=== PATIENT | female | born 1980 | race Caucasian/White ===

== ENCOUNTER → 2019-11-11 | Outpatient (CLI) | payer OTHER, SELFPAY ==
[2019-11-14 01:13] LABS: HPV Reflexed? NOT INDICATED
== END | disposition home or self-care (01) ==
LOC: LABSPEC 11-12 09:14
PROVIDERS: Visit Provider Obstetrics & Gynecology
DX: Z12.4 Encounter for screening for malignant neoplasm of cervix (principal)
CPT/HCPCS: 88175; G0145

== ENCOUNTER → 2022-10-16 | Outpatient (CLI) | payer OTHER, SELFPAY ==
[2022-10-16 12:06] LABS: Absolute Lymphocyte Count 1.38 X10^3/uL (0.83-4.51); Absolute Neutrophil Count 8.1 X10^3/uL (2.0-7.7); Basophil# 0.06 X10^3/uL; Basophil% 0.6 % (0-1); Eosinophil# 0.08 X10^3/uL; Eosinophils% 0.8 % (0-5); Hematocrit 43.6 % (37-47); Hemoglobin 14.7 g/dL (12.0-15.0); Lymphocyte # 1.38 X10^3/ul (0.83-4.51); Lymphocyte % 13.4 % (19-41); Mean Corp Hgb Conc 33.7 g/dL (32-36); Mean Corpuscular Hgb 32.1 pg (27.0-32.0); Mean Corpuscular Volume 95.2 fL (81-99); Mean Platelet Vol. 10.7 fl (6.2-12.0); Monocyte# 0.66 X10^3/uL; Monocyte% 6.4 % (0-10); NRBC Flagged by Analyzer 0 % (0-5); Neutrophil # 8.07 X10^3/uL (2.7-7.7); Neutrophil % 78.1 % (47-70); Platelet Count 362 K/mm3 (150-450); RBC Distribution Width SD 41.7 fl (35.1-43.9); Red Blood Count 4.58 M/mm3 (4.2-5.4); White Blood Count 10.3 K/mm3 (4.4-11.0)
[2022-10-16 12:25] LABS: Vitamin B12 640 pg/mL (211-911); Vitamin D,25 Hydroxy 24.5 ng/mL
[2022-10-16 12:42] LABS: AST(SGOT) 204 U/L (15-37); Alanine Aminotransfer ALT/SGPT 156 U/L (13-56); Albumin, Serum 4.1 g/dL (3.2-5.0); Alkaline Phosphatase 70 U/L (45-117); Anion Gap 10 (5-15); BUN 6 mg/dL (7-18); Calcium,Total 9.6 mg/dL (8.5-10.1); Chloride 101 mmol/L (98-107); Cholesterol 167 mg/dL (200); Creatinine, Serum 0.67 mg/dL (0.55-1.02); EST Glomerular Filtration Rate 104 mL/min (>60); Est Glom Filt Rate - Afr Amer 125 mL/min (>60); Globulin 4.1 g/dL (2.2-4.2); Glucose 103 mg/dL (74-106); High Density Lipoprotein 94 mg/dL; Potassium 3.3 mmol/L (3.5-5.1); Protein, Total 8.2 g/dL (6.4-8.2); Sodium Level 137 mmol/L (136-145); Thyroid Stim Hormone (TSH) 0.75 uIU/mL (0.358-3.74); Triglycerides 69 mg/dL; Very Low Density Lipoprotein 14 mg/dL (5-40)
== END | disposition home or self-care (01) ==
LOC: BIMLAB 10:43
PROVIDERS: PCP Internal Medicine; Visit Provider Internal Medicine
DX: F31.9 Bipolar disorder, unspecified (principal); F41.9 Anxiety disorder, unspecified; F10.10 Alcohol abuse, uncomplicated; Z86.39 Personal history of other endocrine, nutritional and metabolic disease
CPT/HCPCS: 36415; 80053; 80061; 82306; 82607; 84443; 85025

== ENCOUNTER → 2022-10-28 | Outpatient (CLI) | payer OTHER, SELFPAY ==
--- NOTE | 2022-10-28 10:22 | US_ITS ---
STUDY: ABDOMINAL ULTRASOUND - RIGHT UPPER QUADRANT REASON FOR VISIT: Female, 41 years old abnormal LFTs TECHNIQUE: Ultrasound evaluation of the right upper quadrant was performed with real-time and static isabel-scale imaging. TECHNICAL QUALITY: Adequate. COMPARISON: None. FINDINGS: Liver: The liver measures 14.3 cm. There is increased echogenicity consistent with fatty infiltration. The bile ducts are within normal limits. There is hepatic color flow. The direction of portal flow is hepatopetal. There is no demonstrated mass lesion. Gallbladder: Normal distended gallbladder. The gallbladder wall measures 1.9 mm. There is a negative sonographic Hernandez''s sign. There is no pericholecystic fluid. There are multiple echogenic structures within the gallbladder, consistent with multiple gallstones. Common Bile Duct (C.B.D.): The common bile duct measures 3.1 mm. Pancreas: Normal size of the head, body and tail of the pancreas. There is normal echogenicity of the pancreas. There is no demonstrated pancreatic mass or cyst. Right Kidney: Normal size of the right kidney. The right kidney measures 10.1 x 5.8 x 4.3 cm. Normal renal cortex. The right cortex measures 1.5 cm. There is no demonstrated renal mass or cyst. There is no right hydronephrosis. US/Liver IMPRESSION: Fatty liver, no discrete lesion Cholelithiasis, no sonographic evidence of acute cholecystitis Electronically Signed: Pérez Thacker MD at 10:54 EST ,
== END | disposition home or self-care (01) ==
PROVIDERS: PCP Internal Medicine; Referring Provider Internal Medicine; Visit Provider Internal Medicine
DX: F10.10 Alcohol abuse, uncomplicated (principal); R74.8 Abnormal levels of other serum enzymes
CPT/HCPCS: 76705

== ENCOUNTER → 2025-08-05 | Outpatient (CLI) | payer OTHER, SELFPAY ==
--- OUTSIDE RECORDS SUMMARY | 2025-08-05 16:07 | XMS RPT_ITS | CCD ---
Author Organization [facility] Care Team Providers Care Wildlife Enforcement Major Name Role Phone YOLANDA, GURINDER DEANDREAS Attending Unavailable YOLANDA, GURINDER DEHALADONNA Primary Care Unavailable YOLANDA, GURINDER DEHALADONNA Admitting Unavailable YOLANDA, GURINDER Consulting Unavailable PROVIDER, UNKNOWN Consulting Unavailable Cristi Escobar ([facility]) Primary Care Provider ERICA AL Primary Care Unavailable MARIMATILDA BAKER Attending Unavailable AL, ERICA L Primary Care Unavailable MARIMATILDA BAKER Attending Unavailable LUCY KATZ Attending Unavailable AL, ERICA L Primary Care Unavailable MARIMATILDA Attending Unavailable AL, ERICA L Primary Care Unavailable AL, ERICA L Primary Care Unavailable MARI, MATILDA Attending Unavailable AL, ERICA L Primary Care Unavailable MARIMATILDA Attending Unavailable AL, ERICA L Primary Care Unavailable MARIMATILDA Attending Unavailable AL, ERICA L Primary Care Unavailable MARIMATILDA Attending Unavailable AL, ERICA L Primary Care Unavailable MARIMATILDA Attending Unavailable AL, ERICA L Primary Care Unavailable MARIMATILDA Attending Unavailable AL, ERICA L Primary Care Unavailable MARIMATILDA BAKER Attending Unavailable MATILDA BARAKAT Attending Unavailable AL, ERICA L Primary Care Unavailable MARIMATILDA Attending Unavailable AL, ERICA L Primary Care Unavailable TRAVIS MORRISON Attending Unavaila ble AL, ERICA L Primary Care Unavailable AL, ERICA L Primary Care Unavailable MARI, MATILDA Attending Unavailable AL, ERICA L Primary Care Unavailable MARI, MATILDA Attending Unavailable AL, ERICA L Primary Care Unavailable MARI, MATILDA Attending Unavailable AL, ERICA L Primary Care Unavailable MARIMATILDA BAKER Attending Unavailable AL, ERICA L Primary Care Unavailable MARIMATILDA FABIAN Attending Unavailable AL, ERICA L Primary Care Unavailable MATILDA BARAKAT Attending Unavailable ERICA AL Primary Care Unavailable MATILDA BARAKAT Attending Unavailable ERICA AL Primary Care Unavailable MATILDA BARAKAT Attending Unavailable ERICA AL Primary Care Unavailable MARIMATILDA FABIAN Attending Unavailable ERICA AL Primary Care Unavailable LUCY KATZ Attending Unavailable ERICA AL Primary Care Unavailable MATILDA BARAKAT Attending Unavailable ERICA AL Primary Care Unavailable TRAVIS MORRISON Attending Unavaila ble ERICA AL Primary Care Unavailable ERICA AL Primary Care Unavailable MATILDA BARAKAT Attending Unavailable ERICA AL Primary Care Unavailable MATILDA BARAKAT Attending Unavailable ERICA AL Primary Care Unavailable MATILDA BARAKAT Attending Unavailable [place], Laura Primary Care Unavailable Xavier Chappell Attending Unavailable [place], Laura Primary Care Unavailable Xavier Chappell Attending Unavailable [place], Laura Primary Care Unavailable Xavier Chappell Attending Unavailable Saira, Laura Primary Care Unavailable Xavier Chappell Attending Unavailable ERICA AL Primary Care Unavailable DEDIE GREY Attending Unavailable ERICA AL Primary Care Unavailable CAYLA MAS Attending Unavailable ERICA AL Primary Care Unavailable Medications Completed/Discontinued Medications Medication Drug Class(es) Dates Sig (Normalized) Sig (Original) 24 hr buPROPion hydrochloride 150 mg extended release oral tablet (1 source) Aminoketone Start: 08-10-2023 take 1 tablet by mouth once daily buPROPion XL (WELLBUTRIN XL) 150 mg 24 hr tablet Take 300 mg by mouth once daily. 0 08/10/2023 Active Comment on above: Take 300 mg by mouth once daily. escitalopram 10 mg oral tablet (1 source) Serotonin Reuptake Inhibitor Start: 07-17-2023 take 1 tablet by mouth once daily escitalopram oxalate (LEXAPRO) 10 mg tablet Take 10 mg by mouth once daily. 0 07/17/2023 Active Comment on above: Take 10 mg by mouth once daily. Problems Active Problems Problem Classification Problem Date Documented Date Episodic/Chronic Alcohol-related disorders (1 source) Alcohol dependence, uncomplicated; Translations: [Moderate alcohol use disorder (HCC)] Onset: 10-17-2023 Chronic Attention-deficit, conduct, and disruptive behavior disorders (1 source) Attention-deficit hyperactivity disorder, unspecified type; Translations: [Attention-deficit hyperactivity disorder, unspecified type] Onset: 05-26-2025 Chronic Immunizations and screening for infectious disease (2 sources) Patient encounter status; Translations: [Encounter for screening for human papillomavirus (HPV)] 08-15-2023 Episodic Nonmalignant breast conditions (1 source) Breast finding ; Translations: [Dense breast tissue] 08-13-2023 Episodic Other upper respiratory infections (1 source) Chronic sinusitis, unspecified; Translations: [Rhinosinusitis] Onset: 06-20-2025 Chronic Unclassified (1 source) Chemical Dependency Onset: 11-20-2023 Past or Other Problems Problem Classification Problem Date Documented Da te Episodic/Chronic Other screening for suspected conditions (not mental disorders or infectious disease) (2 sources) Cancer cervix screening status; Translations: [Encounter for screening for malignant neoplasm of cervix] Onset: 10-17-2023 08-15-2023 Episodic Results Test Name Value Interpretation Reference Range Facility [facility] 06-20-2025 CNOV Office Visit ([facility]) -------- OREN TOBIN ([id number]) 1980 [facility] Date Time Provider Department 06/20/25 2:30 PM EDDIE GREY During your visit today, we recorded the following information about you: Temperature Pulse Respiration Blood pressure 98.1 degrees 110/minute 16/minute 110/64 Weight 56 kg Eddie Grey APRN.CNP 06/20/2025 2:45 PM Signed [facility] Subjective Oren Tobin is a 44 year old female. Patient presents with: Chest Congestion: dry cough x 10 days, increased x 2 days HPI The patient is a 44-year-old female presenting with sinus congestion, dry cough, and wheezing. Sinus Congestion, Cough, and Wheezing: - Sinus congestion with minimal pressure. - Dry cough and wheezing, particularly at night. - Denies feeling like it's pneumonia; attributes symptoms to allergies. - Previously had similar symptoms when owning a rabbit. - Typically uses prednisone and an inhaler for relief. - Tried Claritin without relief. - Denies history of COPD or asthma. - Denies any allergies. Review of Systems Ears/Nose/Mouth/Throat: (+) nasal congestion, (+) sinus pressure Respiratory: (+) dry cough, (+) wheezing Objective BP 110/64 Pulse 110 Temp 36.7 ?C (98.1 ?F) Resp 16 Wt 56 kg (123 lb 7.3 oz) LMP (LMP Unknown) SpO2 98% BMI 24.11 kg/m? Physical Exam Constitutional: Appearance: Normal appearance. Pulmonary: Effort: Pulmonary effort is normal. Neurological: Mental Status: She is alert. General: No acute distress. HEENT: Ears and throat normal. Resp: Lungs clear to auscultation bilaterally, respirations regular. { 1. Rhinosinusitis (J32.9) - Acute rhinosinusitis with significant postnasal drainage, dry cough, and mild wheezing; lungs clear on exam. - Start doxycycline BID for 7 days. - Start prednisone 40 mg daily for 5 days. - Start albuterol inhaler; patient expressed understanding of inhaler use. and Recording using [employer] software for draft documentation of the visit was discussed with the patient/authorized veterans contact representative; all questions welcomed and answered. Patient/authorized veterans contact representative agreed to proceed History and Record Review External record(s) reviewed: no prior records. Disposition The patient was discharged. Procedures Allergies As of Date: 06/20/2025 (No Known Allergies) Date Reviewed: 06/20/2025 Reviewed by: Lizzy Miner MA - Fully Assessed Reason for Visit: Chest Congestion [236] Cmt: dry cough x 10 days, increased x 2 days Primary Visit Diagnosis:Rhinosinusitis [J32.9] Order(s):doxycycline hyclate (VIBRAMYCIN) 100 mg capsuleTake 1 capsule by mouth two times a day for 7 days.Disp: 14 capsuleRfl: 0 predniSONE (DELTASONE) 20 mg tabletTake 2 tablets by mouth once daily for 5 days.Disp: 10 tabletRfl: 0 albuterol HFA (PROVENTIL HFA, VENTOLIN HFA) 90 mcg/actuation inhalerInhale 2 puffs as instructed every 6 hours as needed for wheezing/shortness of breath.Disp: 1 eachRfl: 0 Prescriptions as of 06/20/2025 - atomoxetine (STRATTERA) 40 mg capsule Take 40 mg by mouth every morning. - doxycycline hyclate (VIBRAMYCIN) 100 mg capsule Take 1 capsule by mouth two times a day for 7 days. - predniSONE (DELTASONE) 20 mg tablet Take 2 tablets by mouth once daily for 5 days. - albuterol HFA (PROVENTIL HFA, VENTOLIN HFA) 90 mcg/actuation inhaler Inhale 2 puffs as instructed every 6 hours as needed for wheezing/shortness of breath. - metoprolol succinate ER (TOPROL XL) 50 mg 24 hr tablet Take 1 tablet by mouth once daily. - buPROPion XL (WELLBUTRIN XL) 300 mg 24 hr tablet 300 mg once daily. - escitalopram oxalate (LEXAPRO) 10 mg tablet 10 mg. Problem List As Of Date 06/20/2025 Noted Resolved Moderate alcohol use disorder (HCC) [F10.20] 10/17/2023 Generalized anxiety disorder [F41.1] 10/17/2023 Major depressive disorder, recurrent episode, m*10/17/2023 Uncomplicated alcohol dependence (HCC) [F10.20] 10/23/2023 Prescriptions ordered this encounter Disp Refills Start End DOXYCYCLINE HYCLATE 100 MG CAPSULE 14 c* 0 06/20/2025 06/27/2025 Route: PO Sig: Take 1 capsule by mouth two times a day for 7 days. PREDNISONE 20 MG TABLET 10 t* 0 06/20/2025 06/25/2025 Route: PO Sig: Take 2 tablets by mouth once daily for 5 days. ALBUTEROL SULFATE HFA 90 MCG/ACTUATI* 1 ea* 0 06/20/2025 Cmt: Generic or brand: dispense inhaler preferred by patient/insurance unless CHARMAINE flag is selected. Route: INH Sig: Inhale 2 puffs as instructed every 6 hours as needed for wheezing/shortness of breath. Encounter Status:Closed by EDDIE GREY on 06/20/25 [facility] MR/BMS.[place] 05-26-2025 MR/BMS. [address], [address] [place] [id number] OFFICE VISIT Date of Service: 05/26/25 MR#: [id number] Acct: [id number] Name: OREN TOBIN Rep #: [id number] : 1980 Provider: Dr. Xavier Reynoso se, DO Age/Sex: 44/F [place] [facility] [place] Status: Signed Intake Vital Signs 02/23/25 15:04 05/26/25 15:03 Height 5 ft 1 in 5 ft 1 in Weight: 117 lb 119 lb BMI 22.1 22.4 BP 128/90 H 132/89 H Blood Pressure Location Lt brachial Lt brachial Position Sitting Sitting Respiration 16 16 Pulse 101 H 122 H Pulse Source Monitor Monitor BP Intake Visit Reasons: 3 M FU Accompanied by: Self Allergies No Known Allergies Allergy (Verified 05/26/25 15:05) Medications ???Medication ???Instructions ???Recorded ???Confirmed ???Type atomoxetine 80 mg capsule 80 mg PO QAM #30 caps 05/26/2506/11 Rx PFSH Medical History ADHD HTN (hypertension) CHASIDY (generalized anxiety disorder) Depression Anxiety Hx of bipolar disorder History of non anemic vitamin B12 deficiency History of vitamin D deficiency History of neuropathy Hx of migraines Seasonal allergies Alcohol abuse Surgical History No significant past surgical history Family History Mother Anxiety Depression Hypertension Hyperlipidemia Liver disease Grandmother Anxiety Colon cancer Depression Father AA (alcohol abuse) Grandfather AA (alcohol abuse) Social History household members: family housing: house current occupational status: employed current occupation: [employer] FORMER sexually active: Yes Smoking Status: Former smoker alcohol intake: former details: [place] substance use type: does not use what type of physical activity do you participate in: walking and running frequency: 5-6 times per week seatbelt use: always do you feel safe at home: Yes HPI History of Present Illness History provided by: patient HPI: Oren Tobin is a 44 year old female who presents today for follow up evaluation. 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 Has been working at the [employer] part of the [employer]. Has been falling asleep around 3-4 pm if she sits down. Is able to sleep well at night without much difficulty. Son has been participating in [employer] which has been a positive. Has been taking the atomoxetine regularly, and does think that increased dose has been marginally better. Has reduced her drinking to maybe 3 on the weekends. Denies SI/HI or AVH. Mother in law has been living in a senior care. Coming up on 12 year anniversary with her significant other. Review of Systems Constitutional Denies: fever(s), chills or change in weight Eyes Denies: change in vision or blurry vision Ears, Nose, Mouth, Throat Denies: throat pain, neck pain or change in hearing Cardiovascular Denies: chest pain, palpitations or dyspnea Respiratory Denies: dyspnea, cough or wheezing Gastrointestinal Denies: abdominal pain, nausea, vomiting, diarrhea or constipation Genitourinary Denies: dysuria or urinary frequency Musculoskeletal Denies: back pain, neck pain, joint pain or muscle weakness Integumentary/Breast Denies: rash or new lesions Neurological Denies: headache(s), dizziness or confusion Endocrine Denies: excessive sweating Hematologic/Lymphatic Denies: easy bruising or easy bleeding Allergic/Immunologic Denies: wheezing Exam Mental Status Exam - Psych Appearance casually dressed Attitude engaged Activity/Motor Behavior MSE activity/motor behavior finding no adventitious movements Speech regular rate, regular volume and regular prosody Mood OK Affect full range Thought Process linear, logical and coherent Thought Content no delusions and no hallucinations Suicidal Ideation none Homicidal Ideation none Attention intact Concentration intact Sensorium/Orientation awake, alert and oriented x3 Memory/Cognition other (appropriate for stated age) Insight good Judgement good Assessment Plan Assessment Plan (1) CHASIDY (generalized anxiety disorder): Plan: - Fairly stable at this time (2) ADHD: Plan: - Will increase atomoxetine to 40 mg twice a day; does do largely well with medication however has an afternoon crash which does usually necessitate taking a nap ??? Advised of the risk benefits and possible side effects of medication including but not limited to high blood pressure, tachycardia, headache, reduced appetite (3) Alcohol abuse: Plan: - Still reducing use; generally only drinking on the weekend Medications: Changed From atomoxetin (more content not included)... Normal [facility] MR/BMS.BPon 02-23-2025 MR/BMS.BP [facility] [address], [address] [place] [address] OFFICE VISIT Date of Service: 02/23/25 MR#: [id number] Acct: [id number] Name: OREN TOBIN Rep #: [id number] : 1980 Provider: Dr. Xavier Reynoso se, DO Age/Sex: 44/F [place] [facility] [place] Status: Signed Intake Vital Signs 12/22/24 14:31 02/23/25 15:04 Height 5 ft 1 in 5 ft 1 in Weight: 123 lb 117 lb BMI 23.2 22.1 BP 144/89 H 128/90 H Blood Pressure Location Lt brachial Lt brachial Position Sitting Sitting Respiration 16 16 Pulse 116 H 101 H Pulse Source Monitor Monitor BP Intake Visit Reasons: 2 M FU Accompanied by: Self Allergies No Known Allergies Allergy (Verified 02/23/25 15:07) Medications ???Medication ???Instructions ???Recorded ???Confirmed ???Type atomoxetine 40 mg capsule 40 mg PO QAM #30 caps 02/23/2506/11 Rx PFSH Medical History ADHD HTN (hypertension) CHASIDY (generalized anxiety disorder) Depression Anxiety Hx of bipolar disorder History of non anemic vitamin B12 deficiency History of vitamin D deficiency History of neuropathy Hx of migraines Seasonal allergies Alcohol abuse Surgical History No significant past surgical history Family History Mother Anxiety Depression Hypertension Hyperlipidemia Liver disease Grandmother Anxiety Colon cancer Depression Father AA (alcohol abuse) Grandfather AA (alcohol abuse) Social History household members: family housing: house current occupational status: employed current occupation: [employer] FORMER sexually active: Yes Smoking Status: Former smoker alcohol intake: former details: [place] substance use type: does not use what type of physical activity do you participate in: walking and running frequency: 5-6 times per week seatbelt use: always do you feel safe at home: Yes HPI History of Present Illness History provided by: patient HPI: Oren Tobin is a 44 year old female who presents today for follow up evaluation. 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 Feels like she has noticed some benefit with atomoxetine. Initially noticed an afternoon crash with the medication but this has since resolved. Mother in law recently had an amputation and is now in the senior care permanently following this. She also has dementia. She has her name on patient's mortgage so worries about having to buy her off of their title. Despite this stress, has been handling "pretty well." Has been able to sleep at night. Has reduced how much she is drinking. Will drink 3-4 drinks 3 nights per week. Will be moving to high school for work which she is excited about in the future. Denies any SI HI or AVH. Review of Systems Constitutional Denies: fever(s), chills or change in weight Eyes Denies: change in vision or blurry vision Ears, Nose, Mouth, Throat Denies: throat pain, neck pain or change in hearing Cardiovascular Denies: chest pain, palpitations or dyspnea Respiratory Denies: dyspnea, cough or wheezing Gastrointestinal Denies: abdominal pain, nausea, vomiting, diarrhea or constipation Genitourinary Denies: dysuria or urinary frequency Musculoskeletal Denies: back pain, neck pain, joint pain or muscle weakness Integumentary/Breast Denies: rash or new lesions Neurological Denies: headache(s), dizziness or confusion Endocrine Denies: excessive sweating Hematologic/Lymphatic Denies: easy bruising or easy bleeding Allergic/Immunologic Denies: wheezing Exam Mental Status Exam - Psych Appearance casually dressed Attitude engaged Activity/Motor Behavior MSE activity/motor behavior finding no adventitious movements Speech regular rate, regular volume and regular prosody Mood OK Affect full range Thought Process linear, logical and coherent Thought Content no delusions and no hallucinations Suicidal Ideation none Homicidal Ideation none Attention intact Concentration intact Sensorium/Orientation awake, alert and oriented x3 Memory/Cognition other (appropriate for stated age) Insight good Judgement good Assessment Plan Assessment Plan (1) CHASIDY (generalized anxiety disorder): Plan: - Fairly stable at this time (2) ADHD: Plan: - Will increase atomoxetine to 40 mg every day; has noted significant benefit with the medication to this point however still has some residual symptoms ??? Advised of the risk benefits and possible side effects of medication including but not limited to high blood pressure, tachycardia, headache, reduced appetite (3) Alcohol abuse: Plan: - Has reduced her alc (more content not included)... Normal [facility] MR/BMS.BPon 12-22-2024 MR/BMS.BP [facility] [address], [address] [place] [address] OFFICE VISIT Date of Service: 12/22/24 MR#: [id number] Acct: [id number] Name: OREN TOBIN Rep #: [id number] : 1980 Provider: Dr. Xavier Reynoso se, DO Age/Sex: 44/F [place] [facility] [place] Status: Signed Intake Vital Signs 10/23/24 15:12 12/22/24 14:31 Height 5 ft 1 in 5 ft 1 in Weight: 130 lb 123 lb BMI 24.5 23.2 BP 153/88 H 144/89 H Blood Pressure Location Lt brachial Lt brachial Position Sitting Sitting Respiration 16 16 Pulse 116 H 116 H Pulse Source Monitor Monitor BP Intake Visit Reasons: 2 mfu Accompanied by: Self Allergies No Known Allergies Allergy (Verified 12/22/24 14:33) Medications ???Medication ???Instructions ???Recorded ???Confirmed ???Type atomoxetine 25 mg capsule 25 mg PO ONCE #30 caps 12/22/24 Rx PFSH Medical History ADHD HTN (hypertension) CHASIDY (generalized anxiety disorder) Depression Anxiety Hx of bipolar disorder History of non anemic vitamin B12 deficiency History of vitamin D deficiency History of neuropathy Hx of migraines Seasonal allergies Alcohol abuse Surgical History No significant past surgical history Family History Mother Anxiety Depression Hypertension Hyperlipidemia Liver disease Grandmother Anxiety Colon cancer Depression Father AA (alcohol abuse) Grandfather AA (alcohol abuse) Social History household members: family housing: house current occupational status: employed current occupation: [employer] FORMER sexually active: Yes Smoking Status: Former smoker alcohol intake: former details: [employer] substance use type: does not use what type of physical activity do you participate in: walking and running frequency: 5-6 times per week seatbelt use: always do you feel safe at home: Yes HPI History of Present Illness History provided by: patient HPI: Oren Tobin is a 44 year old female who presents today for follow up evaluation. Patient reports to having stopped all of her medication, including lexapro, when tapering off her bupropion. She is not quite sure why she did this. Has still been feeling "everywhere." Has been feeling more anxious in recent past. Vacillates between doing a lot like going out [employer] or shopping and other days has nearly no motivation. At work has been making some careless mistakes like walking past a patient's room and have to go back to do count. Easily is sidetracked at work, but not to point of getting in trouble. Feels scattered most of the time. Son has been telling her to "relax." Has been drinking 6-8 drinks at night every 3-4 nights per week. Has been sleeping fair. Sometimes feels that if she sleeps too much she needs more sleep and is worried about sleeping too much. Never took phentermine as she was prescribed. Has lost some more weight in recent past without any significant attempt. Scored a 61 on her Wender Justin Rating Scale. Daughter has a history of ADHD. Review of Systems Constitutional Reports: fatigue; Denies: fever(s), chills or change in weight Eyes Denies: change in vision or blurry vision Ears, Nose, Mouth, Throat Denies: throat pain, neck pain or change in hearing Cardiovascular Denies: chest pain, palpitations or dyspnea Respiratory Denies: dyspnea, cough or wheezing Gastrointestinal Denies: abdominal pain, nausea, vomiting, diarrhea or constipation Genitourinary Denies: dysuria or urinary frequency Musculoskeletal Denies: back pain, neck pain, joint pain or muscle weakness Integumentary/Breast Denies: rash or new lesions Neurological Denies: headache(s), dizziness or confusion Endocrine Reports: fatigue; Denies: excessive sweating Hematologic/Lymphatic Denies: easy bruising or easy bleeding Allergic/Immunologic Denies: wheezing Exam Mental Status Exam - Psych Appearance casually dressed and no apparent distress Attitude cooperative Activity/Motor Behavior MSE activity/motor behavior finding no adventitious movements Speech regular rate, regular volume and regular prosody Mood OK Affect full range Thought Process linear, logical and coherent Thought Content no delusions and no hallucinations Suicidal Ideation none Homicidal Ideation none Attention intact Concentration intact Sensorium/Orientation awake, alert and oriented x3 Memory/Cognition other (appropriate for stated age) Insight good Judgement good Assessment Plan Assessment Plan (1) CHASIDY (generalized anxiety disorder): Plan: - Has discontinued all her medication despite as only having plan to taper Wellbutrin (2) ADHD: Plan: - We will (more content not included)... Normal [facility] MR/BMS.BPon 10-23-2024 MR/BMS.BP [facility] [address], [address] [place] [id number] OFFICE VISIT Date of Service: 10/23/24 MR#: [id number] Acct: [id number] Name: OREN TOBIN Rep #: [id number] : 1980 Provider: Dr. Xavier Reynoso se, Age/Sex: 43/F [place] [facility] [place]: Signed Intake Vital Signs 03/04/24 08:40 10/23/24 15:12 Height 5 ft 1 in 5 ft 1 in Weight: 130 lb BMI 24.5 BP 153/88 H Blood Pressure Location Lt brachial Position Sitting Respiration 16 Pulse 116 H Pulse Source Monitor BP Intake Visit Reasons: Follow up Accompanied by: Self Allergies No Known Allergies Allergy (Verified 10/23/24 15:13) Medications ???Medication ???Instructions ???Recorded ???Confirmed ???Type metoprolol succinate 50 mg 50 mg PO DAILY #30 tabs 11/09/22 0 10/23/24 Rx tablet,extended release 24 hr escitalopram oxalate 10 mg tablet 10 mg PO DAILY #90 tabs 04/14/24 10/23/24 Rx (Lexapro) bupropion HCl 150 mg tablet,12 hr 150 mg PO TID #90 ea 10/08/2403/11 Rx sustained-release PFSH Medical History HTN (hypertension) CHASIDY (generalized anxiety disorder) Depression Anxiety Hx of bipolar disorder History of non anemic vitamin B12 deficiency History of vitamin D deficiency History of neuropathy Hx of migraines Seasonal allergies Alcohol abuse Surgical History No significant past surgical history Family History Mother Anxiety Depression Hypertension Hyperlipidemia Liver disease Grandmother Anxiety Colon cancer Depression Father AA (alcohol abuse) Grandfather AA (alcohol abuse) Social History household members: family housing: house current occupational status: employed current occupation: [employer] FORMER sexually active: Yes Smoking Status: Former smoker alcohol intake: former details: [place] substance use type: does not use what type of physical activity do you participate in: walking and running frequency: 5-6 times per week seatbelt use: always do you feel safe at home: Yes HPI History of Present Illness History provided by: patient HPI: Oren Tobin is a 43 year old female who presents today for follow up evaluation. Patient's friend in July of this year whom she had been visiting regularly. Had gone back to work following having completed IOP in January, then had a few drinks in March. She was then required to go back to IOP, but she was unwilling to do so resigned. 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 Has been enjoying working there. Reports to feeling "very anxious." Part of this was adjusting to working a new job and learning new skills. Has been bouncing back and forth before and then gets overwhelmed at work. Home is doing "pretty good." Had some interpersonal difficulties in relationship, but this has actually improved. Has been drinking on the weekends or 1-2 drinks during the week about 2-3x. Denies any significant depressive symptoms at this time. Patient admits to feeling tired if she is not doing anything. Was just placed back on phentermine, however she has not yet filled the prescription and is unsure if she will take. Review of Systems Constitutional Reports: fatigue; Denies: fever(s), chills or change in weight Eyes Denies: change in vision or blurry vision Ears, Nose, Mouth, Throat Denies: throat pain, neck pain or change in hearing Cardiovascular Denies: chest pain, palpitations or dyspnea Respiratory Denies: dyspnea, cough or wheezing Gastrointestinal Denies: abdominal pain, nausea, vomiting, diarrhea or constipation Genitourinary Denies: dysuria or urinary frequency Musculoskeletal Denies: back pain, neck pain, joint pain or muscle weakness Integumentary/Breast Denies: rash or new lesions Neurological Denies: headache(s), dizziness or confusion Endocrine Reports: fatigue; Denies: excessive sweating Hematologic/Lymphatic Denies: easy bruising or easy bleeding Allergic/Immunologic Denies: wheezing Exam Mental Status Exam - Psych Appearance casually dressed and no apparent distress Attitude cooperative Activity/Motor Behavior MSE activity/motor behavior finding no adventitious movements Speech regular rate, regular volume and regular prosody Mood OK Affect full range Thought Process linear, logical and coherent Thought Content no delusions and no hallucinations Suicidal Ideation none Homicidal Ideation none Attention intact Concentration intact Sensorium/Orientation awake, alert and oriented x3 Memory/Cognition other (appropriate for stated age) Insight good Judgement good Exam Constitutional Documenting provider zhu (more content not included)... Normal [facility] 09-12-2024 [facility] Office Visit (UCWSTR ) -------- OREN TOBIN ([id number]) 1980 F [facility] Date Time Provider Department 09/12/24 1:15 PM MARILUZ GALEANO [facility] During your visit today, we recorded the following information about you: Temperature Pulse Respiration Blood pressure 98.6 degrees 102/minute 21/minute 110/68 Weight 59.3 kg Mariluz Galeano APRN.[facility] 09/12/2024 1:08 PM Signed This note was created using NoteWriter. Subjective Oren Tobin is a 43 year old female. 43 year old female with PMH anxiety and depression presents for illness. Acute onset ten days ago +sinus pressure +sinus congestion +post nasal Mild cough Denies fever or chills Denies dyspnea Denies N/V/D Denies skin rash or lesions. Denies tobacco usage Denies recent ATB usage +exposure to ill contacts The history is provided by the patient. No biblical languages professor was used. Cough This is a new problem. The current episode started more than 1 week ago. The problem occurs constantly. The problem has been gradually worsening. The cough is Non-productive. There has been no fever. Associated symptoms include ear congestion, headaches and rhinorrhea. Pertinent negatives include no chest pain, no chills, no sweats, no weight loss, no ear pain, no sore throat, no myalgias, no shortness of breath, no wheezing and no eye redness. She has tried nothing for the symptoms. The treatment provided no relief. She is not a smoker. Her past medical history does not include bronchitis, pneumonia, bronchiectasis, COPD, emphysema or asthma. PAST MEDICAL HISTORY Diagnosis Date Tachycardia No past surgical history on file. ALLERGIES Patient has no known allergies. MEDICATIONS Phentermine HCl 37.5 mg tablet Take 1 tablet by mouth once daily for 90 days. BMI 28.47 metoprolol succinate ER (TOPROL XL) 50 mg 24 hr tablet Take 1 tablet by mouth once daily. buPROPion XL (WELLBUTRIN XL) 300 mg 24 hr tablet 300 mg once daily. escitalopram oxalate (LEXAPRO) 10 mg tablet 10 mg. doxycycline (VIBRA-TABS) 100 mg tablet Take 1 tablet by mouth two times a day for 7 days. FAMILY HISTORY Problem Relation Age of Onset Colon Cancer Maternal Grandmother had it twice Social History Tobacco Use Smoking status: Some Days Smokeless tobacco: Never Tobacco comments: Currently vaping daily with nicotine Substance Use Topics Alcohol use: Yes Comment: occasional Drug use: Not Currently Types: Cocaine Comment: 15 years ago Review of Systems Constitutional: Positive for fatigue. Negative for chills, fever and weight loss. HENT: Positive for congestion, postnasal drip, rhinorrhea, sinus pressure and sinus pain. Negative for ear pain and sore throat. Eyes: Negative for pain, discharge, redness and itching. Respiratory: Positive for cough. Negative for shortness of breath and wheezing. Cardiovascular: Negative for chest pain. Gastrointestinal: Negative for abdominal pain, diarrhea, nausea and vomiting. Musculoskeletal: Negative for arthralgias, back pain and myalgias. Skin: Negative for color change, pallor and rash. Allergic/Immunologic: Negative for environmental allergies, food allergies and immunocompromised state. Neurological: Positive for headaches. Negative for dizziness and facial asymmetry. Hematological: Positive for adenopathy. Does not bruise/bleed easily. Psychiatric/Behavioral: Negative for agitation and behavioral problems. Objective BP 110/68 Pulse 102 Temp 37 ?C (98.6 ?F) Resp 21 Wt 59.3 kg (130 lb 11.7 oz) LMP (LMP Unknown) SpO2 99% BMI 25.53 kg/m? Physical Exam Vitals and nursing note reviewed. Constitutional: General: She is not in acute distress. Appearance: Normal appearance. She is normal weight. She is not ill-appearing, toxic-appearing or diaphoretic. HENT: Head: Normocephalic and atraumatic. Comments: +frontal sinus pressure +maxillary sinus pressure Right Ear: Ear canal and external ear normal. Left Ear: Ear canal and external ear normal. Nose: Congestion present. No rhinorrhea. Mouth/Throat: Mouth: Mucous membranes are moist. Pharynx: Posterior oropharyngeal erythema present. No oropharyngeal exudate. Eyes: General: Right eye: No discharge. Left eye: No discharge. Extraocular Movements: Extraocular movements intact. Conjunctiva/sclera: Conjunctivae normal. Pupils: Pupils are equal, round, and reactive to light. Cardiovascular: Rate and Rhythm: Normal rate and regular rhythm. Pulses: Normal pulses. Heart sounds: Normal heart sounds. No murmur heard. No friction rub. Pulmonary: Effort: Pulmonary effort is normal. No respiratory distress. Breath sounds: Normal breath sounds. No stridor. No wheezing, rhonchi or rales. Chest: Chest wall: No tenderness. Abdominal: General: Abdomen is flat. There is no distension. Palpations: Abdomen is soft. There is no mass. Te (more content not included)... Normal [facility] 08-29-2024 [facility] Office Visit (FAMPWS ) -------- OREN TOBIN ([id number]) 1980 F [facility] Date Time Provider Department 08/29/24 8:20 AM CAYLA MAS During your visit today, we recorded the following information about you: Pulse Respiration Blood pressure Weight 126/minute 16/minute 126/84 57.8 kg Cayla Mas APRN.[employer] HELP DESK TECHNICIAN 08/29/2024 10:41 AM Signed Chief Complaint Patient presents with: Weight Loss: Adipex HPI Oren Tobin is a 43 year old female who presents here today for Above Complaints. Weight-requesting refill on her Adipex Diet-cutting back on portions, drinking water Exercise-is very busy at work, running all over the place Past medical history, appointments, medications, allergies reviewed. Previous Medical History PAST MEDICAL HISTORY Diagnosis Date Tachycardia Previous Surgical History History reviewed. No pertinent surgical history. Family History FAMILY HISTORY Problem Relation Age of Onset Colon Cancer Maternal Grandmother had it twice Patient Allergies ALLERGIES No Known Allergies Current Medications Current Outpatient Medications on File Prior to Visit Medication Sig metoprolol succinate ER (TOPROL XL) 50 mg 24 hr tablet Take 1 tablet by mouth once daily. buPROPion XL (WELLBUTRIN XL) 300 mg 24 hr tablet 300 mg once daily. escitalopram oxalate (LEXAPRO) 10 mg tablet 10 mg. medroxyPROGESTERone (DEPO-PROVERA) 150 mg/mL Inject 1 mL intramuscularly every 12 weeks. benzonatate (TESSALON PERLE) 100 mg capsule Take 1 capsule by mouth three times a day as needed. metFORMIN (GLUCOPHAGE) 500 mg tablet Take 1 tablet by mouth two times a day with meals. No current facility-administered medications on file prior to visit. Social History Social History Tobacco Use Smoking status: Some Days Smokeless tobacco: Never Tobacco comments: Currently vaping daily with nicotine Substance Use Topics Alcohol use: Yes Comment: occasional Drug use: Not Currently Types: Cocaine Comment: 15 years ago Review of Symptoms REVIEW OF SYSTEMS See HPI, otherwise negative EXAM: BP 126/84 (BP Site: Left Arm, BP Position: Sitting, BP Cuff Size: Regular Adult) Pulse (!) 126 Resp 16 Wt 57.8 kg (127 lb 6.4 oz) LMP (LMP Unknown) SpO2 100% BMI 24.88 kg/m? General Appearance: Well appearing, alert, in no acute distress, well-hydrated, well nourished.. Lungs: Lungs clear to auscultation. No wheezing, rhonchi, rales.. Heart: RRR without murmur, gallop, or rubs. No ectopy. Psychiatric: pleasant, cooperative. Health Maintenance List Pneumococcal Vaccine(1 of 2 - PCV) Never done Hepatitis C Screening Never done HIV Screening Never done DTaP,Tdap,Td Vaccine(1 - Tdap) Never done Hepatitis B Vaccine(1 of 3 - 19+ 3-dose series) Never done Influenza Vaccine(1) due on 03/16/2025 Covid-19 Vaccine( - 2023- season) due on 08/29/2025 Mammogram Screening due on 06/13/2025 Cervical Cancer Screening due on 08/13/2028 HPV Vaccine Aged Out Data reviewed Previous records, office notes, PDMP report PDMP website checked and validated. All prescriptions have been APPROPRIATELY filled. No suspicious activity was identified. 08/29/2024 by Cayla Mas CNP. ASSESSMENT/PLAN: 1. Overweight with body mass index (BMI) of 28 to 28.9 in adult - ICD9: 278.02, V85.24, ICD10: E66.3, Z68.28 She can do 3 more months of the Adipex and then she will either need to d/c the medication or cut back to a 1/2 tablet daily just to help maintain her weight. - PHENTERMINE 37.5 MG TABLET Cayla Mas APRN.CNP Allergies As of Date: 08/29/2024 (No Known Allergies) Date Reviewed: 08/29/2024 Reviewed by: Cayla Mas APRN.CNP - Fully Assessed Reason for Visit: Weight Loss [882] Cmt: Adipex Visit Diagnosis:Overweight with body mass index (BMI) of 28 to 28.9 in adult [E66.3, Z68.28] Order(s):Phentermine HCl 37.5 mg tabletTake 1 tablet by mouth once daily for 90 days. BMI 28.47Disp: 30 tabletRfl: 2 Prescriptions as of 08/29/2024 - Phentermine HCl 37.5 mg tablet Take 1 tablet by mouth once daily for 90 days. BMI 28.47 - metoprolol succinate ER (TOPROL XL) 50 mg 24 hr tablet Take 1 tablet by mouth once daily. - buPROPion XL (WELLBUTRIN XL) 300 mg 24 hr tablet 300 mg once daily. - escitalopram oxalate (LEXAPRO) 10 mg tablet 10 mg. Problem List As Of Date 08/29/2024 Noted Resolved Moderate alcohol use disorder (HCC) [F10.20] 10/17/2023 Generalized anxiety disorder [F41.1] 10/17/2023 Major depressive disorder, recurrent episode, m*10/17/2023 Uncomplicated alcohol dependence (HCC) [F10.20] 10/23/2023 Prescriptions ordered this encounter Disp Refills Start End PHENTERMINE 37.5 MG TABLET 30 t* 2 08/29/2024 11/27/2024 Route: ORAL Sig: Take 1 tablet by mouth once daily for 90 days. BMI 28.47 Medications Discontinued During This Encounter Prescriptions - benzon (more content not included)... Normal [facility] CONSULT PROGon 02-13-2024 CONSULT PROG HNO ID: [id number] Author: MATILDA BARAKAT LSW Service: DAILY INTENSIVE OP Author Type: Therapist Type: Consult Progress Note Filed: 02/13/2024 20:09 Note Text: BEHAVIORAL HEALTH INTENSIVE OUTPATIENT PROGRAM AFTER CARE PROGRESS NOTE Due to the federal emergency declaration and the need for ongoing mental health services, the following visit was completed virtually and informed consent obtained orally to reduce the risk of COVID-19 exposure. Oral consent to services related to virtual visits was obtained after information was sent via [employer] or read to patient if CBTechart not available." [employer] Start Time: 6 pm End Time: 8 pm Total Time: 120 minutes Number of Therapists: 1 Number of Patients: 7 Problem(s) Number Addressed: 1 Intervention Active Listening, Clarified, Challenged, Encouraged, Engaged, Explored, Gave Feedback, Observed, Psychoeducation, Redirected, Suggested Alternative, and Supported Explain: relapse prevention Response: engaged in check in. No reported use since last visit. Continues to report avoidance of triggers, high risk people and places. Shared attending outside support/AA since last visit. Mood is stable. Denies any major depressive symptoms or safety issues. Completing all ADL's without any difficulty. Cravings low, manageable since last session. Final CC session. Approved discharge. Emailed DC letter to the clients contact at [facility]. File closed following group. Discharge instructions given to the client this day. Client presented her recovery plan of action. Committed to staying sober, working a program and maintaining a sober living plan. SIGNATURE: KISHORE Mcbride PATIENT NAME: Oren Tobin DATE: February 13, 2024 TIME: 8:09 PM [facility] CONSULT PROGon 01-30-2024 CONSULT PROG HNO ID: [id number] Author: MATILDA BARAKAT LSW Service: DAILY INTENSIVE OP Author Type: Therapist Type: Consult Progress Note Filed: 01/30/2024 20:02 Note Text: BEHAVIORAL HEALTH INTENSIVE OUTPATIENT PROGRAM AFTER CARE PROGRESS NOTE Due to the federal emergency declaration and the need for ongoing mental health services, the following visit was completed virtually and informed consent obtained orally to reduce the risk of COVID-19 exposure. Oral consent to services related to virtual visits was obtained after information was sent via [employer] or read to patient if MyChart not available." [employer] Start Time: 6 pm End Time: 8 pm Total Time: 120 minutes Number of Therapists: 1 Number of Patients: 9 Problem(s) Number Addressed: 1 Intervention Active Listening, Clarified, Challenged, Cognitive Restructuring, Encouraged, Engaged, Explored, Gave Feedback, Observed, Psychoeducation, Redirected, Suggested Alternative, and Supported Explain: relapse prevention/action to treat the disease Response: the client checked in. No reported use of AOD since last group aftercare session. Shared attending outside support since last visit. Continues to report living into a sober living plan. Mood reported as stable, WNL. No safety issues or major depressive symptoms reported. Discussed recovery language this hour. Term for example living into a sober living plan, avoiding triggers this day. Focused on staying sober, one day at a time this session. Redirected to utilizing tools, coping skills to live life on lifes terms. SIGNATURE: KISHORE Mcbride PATIENT NAME: Oren Tobin DATE: January 30, 2024 TIME: 8:02 PM [facility] CONSULT PROGon 01-23-2024 CONSULT PROG HNO ID: [id number] Author: MATILDA BARAKAT LSW Service: DAILY INTENSIVE OP Author Type: Therapist Type: Consult Progress Note Filed: 01/23/2024 20:17 Note Text: BEHAVIORAL HEALTH INTENSIVE OUTPATIENT PROGRAM AFTER CARE PROGRESS NOTE Due to the federal emergency declaration and the need for ongoing mental health services, the following visit was completed virtually and informed consent obtained orally to reduce the risk of COVID-19 exposure. Oral consent to services related to virtual visits was obtained after information was sent via [employer] or read to patient if MyChart not available." [employer] Start Time: 6 pm End Time: 8 pm Total Time: 120 minutes Number of Therapists: 1 Number of Patients: 10 Problem(s) Number Addressed: 1 Intervention Active Listening, Clarified, Challenged, Encouraged, Engaged, Explored, Gave Feedback, Observed, Psychoeducation, Redirected, Suggested Alternative, and Supported Explain: recovery plans of action Response: engaged in check in. No reported use since last session. Reported attending outside support since last visit. Cravings low since last session. Mood reported as stable. No safety issues shared/verbalized this day. Completing all ADL's. Continues to reported avoidance of triggers, minimize exposure to high risk people and places and protecting sobriety. Utilizing supportive attachments including family. Encouraged client to set goal to obtain a sponsor and home group and work the steps this hour. SIGNATURE: KISHORE Mcbride PATIENT NAME: Oren Tobin DATE: January 23, 2024 TIME: 8:17 PM [facility] 01-22-2024 [facility] Telephone (AGPSYCWM) -------- MAHADOREN ([id number]) 1980 [facility] Date Time Provider Department 01/22/24 LUCY KATZ AGPSYCWM During your visit today, we recorded the following information about you: Deanna Moran LPN 01/22/2024 11:13 AM Signed Left message for patient to obtain UDS within 24 hours of this call. Deanna Moran Allergies As of Date: 01/22/2024 (No Known Allergies) Date Reviewed: 12/11/2023 Reviewed by: Cayla Mas APRN.IT HELP DESK TECHNICIAN - Fully Assessed Reason for Visit: Drug Screen For Random Drug Test [262] Prescriptions as of 01/22/2024 - metoprolol succinate ER (TOPROL XL) 50 mg 24 hr tablet Take 1 tablet by mouth once daily. - metFORMIN (GLUCOPHAGE) 500 mg tablet Take 1 tablet by mouth daily with breakfast for 14 days, THEN 1 tablet two times a day with meals. - Phentermine HCl 37.5 mg tablet Take 1 tablet by mouth once daily for 90 days. BMI 28.47 - buPROPion XL (WELLBUTRIN XL) 300 mg 24 hr tablet 300 mg once daily. - escitalopram oxalate (LEXAPRO) 10 mg tablet 10 mg. - medroxyPROGESTERone (DEPO-PROVERA) 150 mg/mL Inject 1 mL intramuscularly every 12 weeks. Facility-Administered Medications as of 01/22/2024 - medroxyPROGESTERone 150 mg injection (DEPO-PROVERA) Problem List As Of Date 01/22/2024 Noted Resolved Moderate alcohol use disorder (HCC) [F10.20] 10/17/2023 Generalized anxiety disorder [F41.1] 10/17/2023 Major depressive disorder, recurrent episode, m*10/17/2023 Uncomplicated alcohol dependence (HCC) [F10.20] 10/23/2023 Encounter Status:Closed by DEANNA MORAN on 01/22/24 [facility] CONSULT PROGon 01-09-2024 CONSULT PROG HNO ID: [id number] Author: MATILDA BARAKAT LSW Service: DAILY INTENSIVE OP Author Type: Therapist Type: Consult Progress Note Filed: 01/09/2024 20:05 Note Text: BEHAVIORAL HEALTH INTENSIVE OUTPATIENT PROGRAM AFTER CARE PROGRESS NOTE Due to the federal emergency declaration and the need for ongoing mental health services, the following visit was completed virtually and informed consent obtained orally to reduce the risk of COVID-19 exposure. Oral consent to services related to virtual visits was obtained after information was sent via [employer] or read to patient if [employer] not available." [employer] Start Time: 6 pm End Time: 8 pm Total Time: 120 minutes Number of Therapists: 1 Number of Patients: 10 Problem(s) Number Addressed: 1 Intervention Active Listening, Clarified, Challenged, Encouraged, Engaged, Explored, Gave Feedback, Observed, Psychoeducation, Redirected, Suggested Alternative, and Supported Explain: relapse prevention Response: engaged in check in. No reported use since last visit. Cravings reported as low, manageable. Mood stable. No safety concerns verbalized this day. Continues to report avoidance of high risk people and places. Attending outside support weekly. Utilizing supportive attachments. Completing all ADL's without any reported difficulty. Engaging in self care. Stable. Abstinent. Emailed update to clients contact at for [facility]. SIGNATURE: KISHORE Mcbride PATIENT NAME: Oren Tobin DATE: January 09, 2024 [facility]: 8:08 [facility] OREN TOBIN ([id number]) 1980 [facility] Date Time Provider Department 01/07/24 LUCY KATZ AGPSYCWM During your visit today, we recorded the following information about you: Deanna Moran LPN 01/07/2024 1:06 PM Signed Left message for patient to obtain UDS within 24 hours of this call. Deanna Pinedo LPN 01/10/2024 1:38 PM Signed Patient did not show up for UDS on 01/07/2024. Called again today, left 2nd message to obtain UDS today. Deanna Moran LPN Allergies As of Date: 01/07/2024 (No Known Allergies) Date Reviewed: 12/11/2023 Reviewed by: Cayla Mas APRN.IT HELP DESK TECHNICIAN - Fully Assessed Reason for Visit: Drug Screen For Random Drug Test [262] Prescriptions as of 01/10/2024 - metoprolol succinate ER (TOPROL XL) 50 mg 24 hr tablet Take 1 tablet by mouth once daily. - metFORMIN (GLUCOPHAGE) 500 mg tablet Take 1 tablet by mouth daily with breakfast for 14 days, THEN 1 tablet two times a day with meals. - Phentermine HCl 37.5 mg tablet Take 1 tablet by mouth once daily for 90 days. BMI 28.47 - buPROPion XL (WELLBUTRIN XL) 300 mg 24 hr tablet 300 mg once daily. - escitalopram oxalate (LEXAPRO) 10 mg tablet 10 mg. - medroxyPROGESTERone (DEPO-PROVERA) 150 mg/mL Inject 1 mL intramuscularly every 12 weeks. Facility-Administered Medications as of 01/10/2024 - medroxyPROGESTERone 150 mg injection (DEPO-PROVERA) Problem List As Of Date 01/07/2024 Noted Resolved Moderate alcohol use disorder (HCC) [F10.20] 10/17/2023 Generalized anxiety disorder [F41.1] 10/17/2023 Major depressive disorder, recurrent episode, m*10/17/2023 Uncomplicated alcohol dependence (HCC) [F10.20] 10/23/2023 Encounter Status:Closed by DEANNA MORAN on 01/07/24 [facility] CONSULT PROGon 01-02-2024 CONSULT PROG HNO ID: [id number] Author: MATILDA BARAKAT LSW Service: DAILY INTENSIVE OP Author Type: Therapist Type: Consult Progress Note Filed: 01/02/2024 20:27 Note Text: BEHAVIORAL HEALTH INTENSIVE OUTPATIENT PROGRAM AFTER CARE PROGRESS NOTE Due to the federal emergency declaration and the need for ongoing mental health services, the following visit was completed virtually and informed consent obtained orally to reduce the risk of COVID-19 exposure. Oral consent to services related to virtual visits was obtained after information was sent via [employer] or read to patient if CBTechart not available." [facility] Start Time: 6 pm End Time: 8 pm Total Time: 120 minutes Number of Therapists: 1 Number of Patients: 10 Problem(s) Number Addressed: 1 Intervention Active Listening, Clarified, Challenged, Encouraged, Engaged, Explored, Gave Feedback, Observed, Psychoeducation, Redirected, Suggested Alternative, and Supported Explain: focused on relapse prevention this session Response: engaged in check in. Reported attending outside support since last session. Completing all ADL's without difficulty. Cravings reported as low, manageable since last visit. Mood reported as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 Continue to gain insights into problems. Continue to share feelings AND thoughts in group. Patient Data Brief Addiction Monitor (BAM) Brief Addiction Monitor Scores (7 Day) 10/16/2023 10/29/2023 Use Score 2 1 Risk Factors Score 5 7 Protective Factors Score 14 - IOP Daily Questionnaire IOP Daily 11/20/2023 11/21/2023 11/26/2023 Today, is your belief in your ability to use your Safety Plan in a crisis at 90%? Yes Yes Yes Today, have you wished you were or wished you could go to sleep and not wake up? No No No Today, have you actually had any thoughts of killing yourself? No No No On a scale of 1 to 10 how would you rate your mood now? 9 8 9 SOBRIETY (If applicable): 1 month Clinician: KISHORE Mcbride 11/26/2023 Time: 920 pm Treatment session # 15 [facility] CONSULT PROGon 2023 CONSULT PROG HNO ID: [id number] Author: MATILDA BARAKAT LSW Service: DAILY INTENSIVE OP Author Type: Therapist Type: Consult Progress Note Filed: 2023 21:09 Note Text: MULTIDISCIPLINARY CARE PLAN PLAN IMPLEMENTATION DATE: 2023 REASON(S) FOR INDIVIDUAL CARE PLAN: Substance use disorders COMMON COMPLAINTS AND PRIOR EVALUATIONS: 1. Problematic use of AOD resulting in negative consequences ICP COMMITTEE RECOMMENDATIONS: 1. Continue IOP services at [facility] 2. Recommend aftercare following successful completion of IOP for ongoing stabilization 3. Continue to attend medical appointments with the unit physician as scheduled and random UDS screens 4. Continue to assess for the need for increased LOC Tentative 11/29/23 IOP out date for client given COMMUNITY SOCIAL SERVICE SUPPORT PLAN: 1. AA, NA, SMART 2. Recommend obtaining sponsor and home group [employer] Major Participation in this Plan of Care: Attending: Dr. Curran Nurse Practitioner: Aidan Katz Physician Wool Supplier: Marifer Mckenna Nurse: deanna moran Clinical delivery room supervisor sanjay forbes Counselor maureen garrison dipper clock and watch hands licdc DOCUMENTED BY: KISHORE Mcbride PATIENT NAME: Oren Tobin DATE: 2023 TIME: 2:22 PM Normal [facility] CONSULT PROG HNO ID: [id number] Author: MATILDA BARAKAT LSW Service: DAILY INTENSIVE OP Author Type: Therapist Type: Consult Progress Note Filed: 2023 21:11 Note Text: SENSITIVE ADRC DAILY PROGRESS NOTE/ INTENSIVE OUTPATIENT PROGRAM/ PHP Due to the federal emergency declaration and the need for ongoing mental health services, the following visit was completed virtually and informed consent obtained orally to reduce the risk of COVID-19 exposure. Oral consent to services related to virtual visits was obtained after information was sent via [facility] or read to patient if MyChart not available." PATIENT NAME: Oren Tobin SERVICE DATE: 2023 SERVICE TIME: 6-9 PM Diagnosis: Alcohol Use Disorder Interval Progress: Stable Patient's Participation: Attentive AND involved BEHAVIOR APPEARANCE: Well Groomed ATTITUDE: Cooperative AFFECT: Appropriate MOOD: Well Adjusted ORIENTATION: Oriented to person, place and time THOUGHT: Logical SPEECH: Normal EYE CONTACT: Good Describe Change Noted Throughout the Day: no remarkable change GROUP THERAPY: [facility] Start Time: 7 pm TotalTime: 50 minutes # of Therapists: 1 Problem(s) Number Addressed: 1 # of Patients: 8 INTERVENTION: Clarified, Engaged, Observed, Encouraged, Challenged, Redirected, Psychoeducation, Gave Feedback, Explored, Supported, Active Listening, and Suggested Alternative Explain: focused on defense mechanisms this hour RESPONSE: engaged in the group discussion. Discussed freudian defense mechanisms specific to addiction. Discussed denial as an " onion with many layers" discussed the role of defenses in solidifying defenses as well as their psychological purpose. Discussed rationalizing, minimizing, intellectualizing, projection and diversion this hour. The client was attentive, shared and identified examples of defenses this hour. Shared her recent relapse in treatment as "eye opening" redirected to client honesty regarding her use in treatment and willingness to look at her powerlessness [facility] Start Time: 6 pm TotalTime: 50 minutes # of Therapists: 1 Problem(s) Number Addressed: 1 # of Patients: 8 INTERVENTION Clarified, Engaged, Observed, Encouraged, Challenged, Redirected, Gave Feedback, Explored, Supported, Active Listening, and Suggested Alternative Explain: engaged in check in. Reviewed the treatment plan goals this hour RESPONSE: the client checked in. No reported use since Sunday's group. Verbalized progress and a positive self efficacy towards meeting the goals identified on the master treatment plan. Encouraged the client to attend AA, outside support over the weekend. Cravings reported as low, manageable. Mood stable. No safety issues reported this day nor major depressive symptoms. Shared with the group plans to celebrate her birthday with supportive family and begin a new tradition of sober holidays. [facility] Start Time: 8 pm TotalTime: 50 minutes # of Therapists: 1 Problem(s) Number Addressed: 1 # of Patients: 8 INTERVENTION Clarified, Engaged, Observed, Encouraged, Challenged, Redirected, Psychoeducation, Gave Feedback, Explored, Supported, Active Listening, and Suggested Alternative Explain: focused on sober support this hour RESPONSE: engaged in the group discussion. Discussed the need for and to utilize sober support this hour. Discussed the purpose, benefits of attending AA. Discussed the role of sponsors and home groups in maintaining sobriety and staying active in sobriety this hour. Increased understanding of need to work a program in the rooms verbalized this hour PLAN Continue group treatment as stated in Treatment Plan. Attend self help meetings. Continue to gain insights into problems. Continue to share feelings AND thoughts in group. SOBRIETY (If applicable): 1 month Clinician: KISHORE Mcbride 2023 Time: 911 pm Treatment session # 14 [facility] LIONELNon 11-21-2023 [place] Telephone (AGPSYCWM) -------- OREN TOBIN ([id number]) 1980 F [facility] Date Time Provider Department 11/21/23 LUCY KATZ AGPSYCWM During your visit today, we recorded the following information about you: Deanna Moran LPN 11/21/2023 10:55 AM Signed Left message for patient to obtain UDS within 24 hours of this call. Deanna Moran Allergies As of Date: 11/21/2023 (No Known Allergies) Date Reviewed: 11/06/2023 Reviewed by: Latesha Hess RN - Fully Assessed Reason for Visit: Drug Screen For Random Drug Test [262] Prescriptions as of 11/21/2023 - buPROPion XL (WELLBUTRIN XL) 300 mg 24 hr tablet 300 mg once daily. - escitalopram oxalate (LEXAPRO) 10 mg tablet 10 mg. - Phentermine HCl 37.5 mg tablet Take 1 tablet by mouth once daily for 90 days. BMI 30.74 - medroxyPROGESTERone (DEPO-PROVERA) 150 mg/mL Inject 1 mL intramuscularly every 12 weeks. Facility-Administered Medications as of 11/21/2023 - medroxyPROGESTERone 150 mg injection (DEPO-PROVERA) Problem List As Of Date 11/21/2023 Noted Resolved Moderate alcohol use disorder (HCC) [F10.20] 10/17/2023 Generalized anxiety disorder [F41.1] 10/17/2023 Major depressive disorder, recurrent episode, m*10/17/2023 Uncomplicated alcohol dependence (HCC) [F10.20] 10/23/2023 Encounter Status:Closed by DEANNA MORAN on 11/21/23 [facility] CONSULT PROGon 11-20-2023 CONSULT PROG HNO ID: [id number] Author: MATILDA BARAKAT LSW Service: DAILY INTENSIVE OP Author Type: Therapist Type: Consult Progress Note Filed: 11/20/2023 21:13 Note Text: SENSITIVE ADRC DAILY PROGRESS NOTE/ INTENSIVE OUTPATIENT PROGRAM/ PHP Due to the federal emergency declaration and the need for ongoing mental health services, the following visit was completed virtually and informed consent obtained orally to reduce the risk of COVID-19 exposure. Oral consent to services related to virtual visits was obtained after information was sent via [facility] or read to patient if CBTechart not available." PATIENT NAME: Oren Tobin SERVICE DATE: 11/20/2023 SERVICE TIME: 6-9 PM Diagnosis: Alcohol Use Disorder Interval Progress: Stable Patient's Participation: Attentive AND involved BEHAVIOR APPEARANCE: Well Groomed ATTITUDE: Cooperative AFFECT: Appropriate MOOD: Well Adjusted ORIENTATION: Oriented to person, place and time THOUGHT: Logical SPEECH: Normal EYE CONTACT: Good Describe Change Noted Throughout the Day: no remarkable change. Consistent to content GROUP THERAPY: [facility] Start Time: 7 pm TotalTime: 50 minutes # of Therapists: 1 Problem(s) Number Addressed: 1 # of Patients: 8 INTERVENTION: Clarified, Engaged, Observed, Encouraged, Challenged, Redirected, Psychoeducation, Gave Feedback, Explored, Supported, Active Listening, and Suggested Alternative Explain: focused on external triggers this hour RESPONSE: engaged in the group discussion. Focused on external triggers, people places and things. Discussed building a sober lifestyle and minimizing exposure to triggers. Discussed treating a chronic disease to maintain quality of life this hour. The client commented, shared bars, parties, using friends and drinking family members as triggers this hour [facility] Start Time: 6 pm TotalTime: 50 minutes # of Therapists: 1 Problem(s) Number Addressed: 1 # of Patients: 8 INTERVENTION Clarified, Engaged, Observed, Encouraged, Challenged, Redirected, Gave Feedback, Explored, Supported, Active Listening, and Suggested Alternative Explain: engaged in check in. RESPONSE: the client checked in. No reported use of AOD since last nights group session. No early recovery concerns shared this hour. Stable, abstinent. Completed all ADL's this day without any reported difficulty including employment/household duties. Client given 11/29/23 IOP tentative outdate. Discussed process of sending return to work paperwork to on this date. Encouraged client to contact for the next step, guidance in returning to work following completion of IOP to meet goal of returning to active duty [facility] Start Time: 8 pm TotalTime: 50 minutes # of Therapists: 1 Problem(s) Number Addressed: 1 # of Patients: 8 INTERVENTION Clarified, Engaged, Observed, Encouraged, Challenged, Redirected, Psychoeducation, Gave Feedback, Explored, Supported, Active Listening, and Suggested Alternative Explain: focused on sober lifestyle building this hour RESPONSE: engaged in the group discussion. Discussed building sober lifestyles including building sober support, sober hobbies, activities to replace use of mood altering chemicals. Redirected to the need to build a sober life to prevent loneliness, boredom and the process of relapse this hour. PLAN Continue group treatment as stated in Treatment Plan. Attend self help meetings. Continue to gain insights into problems. Continue to share feelings AND thoughts in group. SOBRIETY (If applicable): 1 month Clinician: KISHORE Mcbride 11/20/2023 Time: 913 pm Treatment session # 13 Normal [facility] CONSULT PROGon 11-19-2023 CONSULT PROG HNO ID: [id number] Author: MATILDA BARAKAT LSW Service: DAILY INTENSIVE OP Author Type: Therapist Type: Consult Progress Note Filed: 11/19/2023 21:05 Note Text: SENSITIVE ADRC DAILY PROGRESS NOTE/ INTENSIVE OUTPATIENT PROGRAM/ PHP Due to the federal emergency declaration and the need for ongoing mental health services, the following visit was completed virtually and informed consent obtained orally to reduce the risk of COVID-19 exposure. Oral consent to services related to virtual visits was obtained after information was sent via [facility] or read to patient if CBTechart not available." PATIENT NAME: Oren Tobin SERVICE DATE: 11/19/2023 SERVICE TIME: 6-9 PM Diagnosis: Alcohol Use Disorder Interval Progress: Stable Patient's Participation: Attentive AND involved BEHAVIOR APPEARANCE: Well Groomed ATTITUDE: Cooperative AFFECT: Appropriate MOOD: Well Adjusted ORIENTATION: Oriented to person, place and time THOUGHT: Logical SPEECH: Normal EYE CONTACT: Good Describe Change Noted Throughout the Day: no remarkable change GROUP THERAPY: [facility] Start Time: 7 pm TotalTime: 50 minutes # of Therapists: 1 Problem(s) Number Addressed: 1 # of Patients: 8 INTERVENTION: Clarified, Engaged, Observed, Encouraged, Challenged, Redirected, Psychoeducation, Gave Feedback, Explored, Supported, Active Listening, and Suggested Alternative Explain: focused on triggers and cravings this hour RESPONSE: engaged in the group discussion. Continued focus on the disease. Discussed cravings as a symptom of the disease. Discussed internal vs external triggers this hour. Discussed reinforcement vs extinction this hour. Redirected to implementing coping skills and tools to treat internal triggers such as anxiety, depression and anger. Redirected further to the need for abstinence and avoiding self medication of uncomfortable, strong negative feelings this hour. Identified feelings of stress, anger, anxiety and depressive symptoms as internal triggers. Shared being engaged in and focused on treating her MH. Medication compliance shared this hour Dynamic [facility] Start Time: 6 pm TotalTime: 50 minutes # of Therapists: 1 Problem(s) Number Addressed: 1 # of Patients: 8 INTERVENTION Clarified, Engaged, Observed, Encouraged, Challenged, Redirected, Gave Feedback, Explored, Supported, Active Listening, and Suggested Alternative Explain: engaged in check in. New group member introductions. BAM administered this hour RESPONSE: the client checked in. Introduced self and was welcoming of new group members this hour. No reported use since last session, over the weekend. Continues to report avoidance of triggers, high risk people and places. Mood was reported as stable. No major depressive symptoms or safety issues shared this hour. Engaged in self care and pleasurable activities since last session. " I got my haircut and a new tattoo over the weekend" Attending online [facility] Start Time: 8 pm TotalTime: 50 minutes # of Therapists: 1 Problem(s) Number Addressed: 1 # of Patients: 8 INTERVENTION Clarified, Engaged, Observed, Encouraged, Challenged, Redirected, Psychoeducation, Gave Feedback, Explored, Supported, Active Listening, and Suggested Alternative Explain: continued focus on triggers this hour RESPONSE: client was engaged in the group discussion this hour. Discussed external triggers, high risk people and places this hour. Discussed the importance of avoid triggers, minimizing exposure and having an exit strategy when needed. Redirected to the need to build a sober living plan, sober support, new activities and hobbies. Further redirected to acceptance as a process. PLAN Continue group treatment as stated in Treatment Plan. Attend self help meetings. Continue to gain insights into problems. Continue to share feelings AND thoughts in group. Patient Data Brief Addiction Monitor (BAM) Brief Addiction Monitor Scores (7 Day) 10/16/2023 10/29/2023 Use Score 2 1 Risk Factors Score 5 7 Protective Factors Score 14 - IOP Daily Questionnaire IOP Daily 11/13/2023 11/15/2023 11/19/2023 Today, is your belief in your ability to use your Safety Plan in a crisis at 90%? Yes Yes Yes Today, have you wished you were or wished you could go to sleep and not wake up? No No No Today, have you actually had any thoughts of killing yourself? No No No On a scale of 1 to 10 how would you rate your mood now? 9 9 9 SOBRIETY (If applicable): 1 month Clinician: KISHORE Mcbride 11/19/2023 Time: 905 pm Treatment session # 12 [facility] Jerilyn 11-15-2023 CNPN Telephone (AGPSYCWM) -------- MAHADOREN ([id number]) 1980 [facility] Date Time Provider Department 11/15/23 LUCY KATZ AGPSYCWM During your visit today, we recorded the following information about you: Deanna Moran LPN 11/15/2023 12:53 PM Signed Left message for patient to obtain UDS within 24 hours of this call. Deanna Moran Allergies As of Date: 11/15/2023 (No Known Allergies) Date Reviewed: 11/06/2023 Reviewed by: Latesha Hess, BOWEN - Fully Assessed Reason for Visit: Drug Screen For Random Drug Test [262] Prescriptions as of 11/15/2023 - escitalopram oxalate (LEXAPRO) 10 mg tablet 10 mg. - Phentermine HCl 37.5 mg tablet Take 1 tablet by mouth once daily for 90 days. BMI 30.74 - medroxyPROGESTERone (DEPO-PROVERA) 150 mg/mL Inject 1 mL intramuscularly every 12 weeks. Facility-Administered Medications as of 11/15/2023 - medroxyPROGESTERone 150 mg injection (DEPO-PROVERA) Problem List As Of Date 11/15/2023 Noted Resolved Moderate alcohol use disorder (HCC) [F10.20] 10/17/2023 Generalized anxiety disorder [F41.1] 10/17/2023 Major depressive disorder, recurrent episode, m*10/17/2023 Uncomplicated alcohol dependence (HCC) [F10.20] 10/23/2023 Encounter Status:Closed by DEANNA MORAN on 11/15/23 [facility] CONSULT PROGon 11-15-2023 CONSULT PROG HNO ID: [id number] Author: MATILDA BARAKAT LSW Service: DAILY INTENSIVE OP Author Type: Therapist Type: Consult Progress Note Filed: 11/15/2023 21:20 Note Text: SENSITIVE ADRC DAILY PROGRESS NOTE/ INTENSIVE OUTPATIENT PROGRAM/ PHP Due to the federal emergency declaration and the need for ongoing mental health services, the following visit was completed virtually and informed consent obtained orally to reduce the risk of COVID-19 exposure. Oral consent to services related to virtual visits was obtained after information was sent via [facility] or read to patient if MyChart not available." PATIENT NAME: Oren Tobin SERVICE DATE: 11/15/2023 SERVICE TIME: 6-9 PM Diagnosis: Alcohol Use Disorder Interval Progress: Stable Patient's Participation: Attentive AND involved BEHAVIOR APPEARANCE: Well Groomed ATTITUDE: Cooperative AFFECT: Appropriate MOOD: Well Adjusted ORIENTATION: Oriented to person, place and time THOUGHT: Logical SPEECH: Normal EYE CONTACT: Good Describe Change Noted Throughout the Day: no remarkable change observed/reported prior to session GROUP THERAPY: [facility] Start Time: 7 pm TotalTime: 50 minutes # of Therapists: 1 Problem(s) Number Addressed: 1 # of Patients: 9 INTERVENTION: Clarified, Engaged, Observed, Encouraged, Challenged, Redirected, Psychoeducation, Gave Feedback, Explored, Supported, Active Listening, and Suggested Alternative Explain: focused on stages of recovery this hour RESPONSE: engaged in the group discussion. Attentive and appropriate. Discussed the stages of recovery, acute withdrawal, honeymoon, the wall and stabilization phases. Redirected client to recovery as a process, the disease needing to be ongoingly treated and the importance of working a program this hour related to the honeymoon phase this hour [facility] Start Time: 6 pm TotalTime: 50 minutes # of Therapists: 1 Problem(s) Number Addressed: 1 # of Patients: 9 INTERVENTION Clarified, Engaged, Observed, Encouraged, Challenged, Redirected, Gave Feedback, Explored, Supported, Active Listening, and Suggested Alternative Explain: engaged in check in. Reviewed treatment plan goals RESPONSE: engaged in check in. No reported use since last visit. Shared " progress" and a positive self efficacy towards meeting treatment goals identified on the ITP. Reported cravings as manageable this day. Avoidant of high risk people and places. Mood stable. No safety issues reported/verbalized this hour. Stable. Abstinent. Utilizing sober attachments and family [facility] Start Time: 8 pm TotalTime: 50 minutes # of Therapists: 1 Problem(s) Number Addressed: 1 # of Patients: 9 INTERVENTION Clarified, Engaged, Observed, Encouraged, Challenged, Redirected, Gave Feedback, Explored, Supported, Active Listening, and Suggested Alternative Explain: focused on chemical histories this hour RESPONSE: the client took the role of listener this hour. Verbalized relating to a group members chemical history specific to progression and consequences of using. Attentive and appropriate. Offers recovery focused feedback and support. Demonstrates empathy towards others. PLAN Continue group treatment as stated in Treatment Plan. Attend self help meetings. Continue to gain insights into problems. Continue to share feelings AND thoughts in group. SOBRIETY (If applicable): 1 week to 2 weeks plus Clinician: KISHORE Mcbride 11/15/2023 Time: 920 pm Treatment session # 11 [facility] CONSULT PROGon 11-13-2023 CONSULT PROG HNO ID: [id number] Author: MATILDA BARAKAT LSW Service: DAILY INTENSIVE OP Author Type: Therapist Type: Consult Progress Note Filed: 11/13/2023 20:58 Note Text: SENSITIVE ADRC DAILY PROGRESS NOTE/ INTENSIVE OUTPATIENT PROGRAM/ PHP Due to the federal emergency declaration and the need for ongoing mental health services, the following visit was completed virtually and informed consent obtained orally to reduce the risk of COVID-19 exposure. Oral consent to services related to virtual visits was obtained after information was sent via [facility] or read to patient if CBTechart not available." PATIENT NAME: Oren Tobin SERVICE DATE: 11/13/2023 SERVICE TIME: 6-9 PM Diagnosis: Alcohol Use Disorder Interval Progress: Stable Patient's Participation: Attentive AND involved BEHAVIOR APPEARANCE: Well Groomed ATTITUDE: Cooperative AFFECT: Appropriate MOOD: Well Adjusted ORIENTATION: Oriented to person, place and time THOUGHT: Logical SPEECH: Normal EYE CONTACT: Good Describe Change Noted Throughout the Day: no remarkable change reported or observed GROUP THERAPY: [facility] Start Time: 7 pm TotalTime: 50 minutes # of Therapists: 1 Problem(s) Number Addressed: 1 # of Patients: 8 INTERVENTION: Clarified, Engaged, Observed, Encouraged, Challenged, Redirected, Psychoeducation, Gave Feedback, Explored, Supported, Active Listening, and Suggested Alternative Explain: continued focus on the disease this hour RESPONSE: engaged in the group discussion.focused on addiction on brain this hour. Discussed the midbrain, the primitive part of brain regulating drives. Discussed the roles of glutamate and dopamine this hour. Further redirected to the alteration of the pleasure threshold this hour and the condition of anhedonia. Shared relating to anhedonia in her previous treatment when she quit using stimulants [facility] Start Time: 6 pm TotalTime: 50 minutes # of Therapists: 1 Problem(s) Number Addressed: 1 # of Patients: 8 INTERVENTION Clarified, Engaged, Observed, Encouraged, Challenged, Redirected, Gave Feedback, Explored, Supported, Active Listening, and Suggested Alternative Explain: engaged in check in. New group member introductions RESPONSE: the client checked in. Arrived late, pre approved by staff due to son's spring concert for his choir. No reported use of AOD since last nights group session. Completed all ADL's this day prior to group including employment and household duties without any reported difficulty. Mood is reported as stable, cravings manageable, no major depressive symptoms or safety issues reported. The client was welcoming of a new group member this hour and introduced self. Recovery Skills Group Start Time: 8 pm TotalTime: 50 minutes # of Therapists: 1 Problem(s) Number Addressed: 1 # of Patients: 8 INTERVENTION Clarified, Engaged, Observed, Encouraged, Challenged, Redirected, Psychoeducation, Gave Feedback, Explored, Supported, Active Listening, and Suggested Alternative Explain: focused on stages of recovery RESPONSE: engaged in the group discussion. Discussed acute withdrawal, honeymoon, the wall and stabilization phases of sobriety. Redirected to getting sick and getting well as a process. Further redirected to the need for self care and ongoing treatment of the disease. PLAN Continue group treatment as stated in Treatment Plan. Attend self help meetings. Continue to gain insights into problems. Continue to share feelings AND thoughts in group. SOBRIETY (If applicable): 1 week to 2 weeks plus Clinician: KISHORE Mcbride 11/13/2023 Time: 858 pm Treatment session # 10 [facility] CONSULT PROGosohail 11-12-2023 CONSULT PROG HNO ID: [id number] Author: MATILDA BARAKAT LSW Service: DAILY INTENSIVE OP Author Type: Therapist Type: Consult Progress Note Filed: 11/12/2023 21:19 Note Text: SENSITIVE ADRC DAILY PROGRESS NOTE/ INTENSIVE OUTPATIENT PROGRAM/ PHP Due to the federal emergency declaration and the need for ongoing mental health services, the following visit was completed virtually and informed consent obtained orally to reduce the risk of COVID-19 exposure. Oral consent to services related to virtual visits was obtained after information was sent via [facility] [employer] or read to patient if CBTechart not available." PATIENT NAME: Oren Tobin SERVICE DATE: 11/12/2023 SERVICE TIME: 6-9 PM Diagnosis: Alcohol Use Disorder Interval Progress: Stable Patient's Participation: Attentive AND involved BEHAVIOR APPEARANCE: Well Groomed ATTITUDE: Cooperative AFFECT: Appropriate MOOD: Well Adjusted ORIENTATION: Oriented to person, place and time THOUGHT: Logical SPEECH: Normal EYE CONTACT: Good Describe Change Noted Throughout the Day: no remarkable change. Consistent affect to content GROUP THERAPY: Coping Strategies Group Start Time: 7 pm TotalTime: 50 minutes # of Therapists: 1 Problem(s) Number Addressed: 1 # of Patients: 10 INTERVENTION: Clarified, Engaged, Observed, Encouraged, Challenged, Redirected, Psychoeducation, Gave Feedback, Explored, Supported, Active Listening, and Suggested Alternative Explain: focused on the disease, stages of using RESPONSE: engaged in the group discussion. Focused on the stages of using, social use vs abuse vs dependence. Redirected to the disease being " in the thinking" as well as " motive for chemical use" differing between those whom have the disease vs those that do not. Client verbalized relating to the material specific to use of chemicals for the effect this hour. Related to using alcohol for the effect in active use as well as inability to control her use Dynamic Group Start Time: 6 pm TotalTime: 50 minutes # of Therapists: 1 Problem(s) Number Addressed: 1 # of Patients: 10 INTERVENTION Clarified, Engaged, Observed, Encouraged, Challenged, Redirected, Gave Feedback, Explored, Supported, Active Listening, and Suggested Alternative Explain: engaged in check in. BAM administered this hour RESPONSE: the client checked in. No reported use since last visit. Reported attending AA over the weekend. Continues to report avoidance of triggers, high risk people and places. Cravings manageable since last session. Mood is stable. Denies any safety issues. Stable. Abstinent. No early recovery concerns shared this hour Recovery Skills Group Start Time: 8 am TotalTime: 50 minutes # of Therapists: 1 Problem(s) Number Addressed: 1 # of Patients: 10 INTERVENTION Clarified, Engaged, Observed, Encouraged, Challenged, Redirected, Psychoeducation, Gave Feedback, Explored, Supported, Active Listening, and Suggested Alternative Explain: continued focus on the disease. Jellenek chart reviewed RESPONSE: the client was attentive and engaged. Participated in the group discussion. The client gained education on the early, middle and late stage signs and symptoms of the disease. Increased understanding of the disease verbalized this hour. Client staged progression on the jellenek chart this hour. Related to the middle stage progression this hour. Loss of control, tolerance and blackouts shared PLAN Continue group treatment as stated in Treatment Plan. Attend self help meetings. Continue to gain insights into problems. Continue to share feelings AND thoughts in group. Patient Data Brief Addiction Monitor (BAM) Brief Addiction Monitor Scores (7 Day) 10/16/2023 10/29/2023 Use Score 2 1 Risk Factors Score 5 7 Protective Factors Score 14 - IOP Daily Questionnaire IOP Daily 11/06/2023 11/08/2023 11/12/2023 Today, is your belief in your ability to use your Safety Plan in a crisis at 90%? Yes Yes Yes Today, have you wished you were or wished you could go to sleep and not wake up? No No No Today, have you actually had any thoughts of killing yourself? No No No On a scale of 1 to 10 how would you rate your mood now? 9 8 9 SOBRIETY (If applicable): 1 week to 2 weeks plus Clinician: KISHORE Mcbride 11/12/2023 Time: 919 pm Treatment session # 9 [facility] CONSULT Gillian 11-08-2023 CONSULT G HNO ID: [id number] Author: MATILDA BARAKAT LSW Service: DAILY INTENSIVE OP Author Type: Therapist Type: Consult Progress Note Filed: 11/08/2023 21:49 Note Text: -------- Summary: weekly team review note -------- MULTIDISCIPLINARY CARE PLAN PLAN IMPLEMENTATION DATE: 11/08/2023 REASON(S) FOR INDIVIDUAL CARE PLAN: Substance use disorders COMMON COMPLAINTS AND PRIOR EVALUATIONS: 1. Problematic use of mood altering chemicals. Recurring negative consequences ICP COMMITTEE RECOMMENDATIONS: 1. Continue IOP services here at [facility] 2. Recommend aftercare services following IOP for ongoing stabilization 3. Recommend client to continue to attend medical appts with the unit physician as scheduled 4. Continue to assess for the need for increased LOC 5. Continue to monitor UDS screens Client treatment extended beyond two week observation. Focusing on abstinence from alcohol COMMUNITY SOCIAL SERVICE SUPPORT PLAN: 1. AA, NA, SMART recovery Wildlife [employer] Major Participation in this Plan of Care: Attending: Dr. Curran Nurse Practitioner: Aidan Katz Physician Wool Supplier: Marifer Mckenna Nurse: Deanna Moran Counselor maureen garrison dipper clock and watch hands licdc DOCUMENTED BY: KISHORE Mcbride PATIENT NAME: Oren Tobin DATE: November 08, 2023 TIME: 2:03 PM Normal [facility] CONSULT PROG HNO ID: [id number] Author: MATILDA BARAKAT LSW Service: DAILY INTENSIVE OP Author Type: Therapist Type: Consult Progress Note Filed: 11/08/2023 21:50 Note Text: SENSITIVE [facility] DAILY PROGRESS NOTE/ INTENSIVE OUTPATIENT PROGRAM/ PHP Due to the federal emergency declaration and the need for ongoing mental health services, the following visit was completed virtually and informed consent obtained orally to reduce the risk of COVID-19 exposure. Oral consent to services related to virtual visits was obtained after information was sent via [facility] [employer] or read to patient if CBTechart not available." PATIENT NAME: Oren Tobin SERVICE DATE: 11/08/2023 SERVICE TIME: 6-9 PM Diagnosis: Alcohol Use Disorder Interval Progress: stable Patient's Participation: active, engaged BEHAVIOR APPEARANCE: Well Groomed ATTITUDE: Cooperative AFFECT: Appropriate MOOD: Well Adjusted ORIENTATION: Oriented to person, place and time THOUGHT: Logical SPEECH: Normal EYE CONTACT: Good Describe Change Noted Throughout the Day: no remarkable change GROUP THERAPY: Coping Strategies Group Start Time: 7 pm TotalTime: 50 minutes # of Therapists: 1 Problem(s) Number Addressed: 1 # of Patients: 9 INTERVENTION: Clarified, Engaged, Observed, Encouraged, Challenged, Redirected, Psychoeducation, Gave Feedback, Explored, Supported, Active Listening, and Suggested Alternative Explain: focused on the disease this hour RESPONSE: engaged in the group discussion. Focused on the stages of using. Reviewed experimentation, social, abuse vs dependence this hour. Redirected to the signs and symptoms of the disease. Discussed genetic predisposition as well as the disease being non-discriminatory. Related to use of chemicals for the effect and to self medicate this hour. Dynamic Group Start Time: 6 pm TotalTime: 50 minutes # of Therapists: 1 Problem(s) Number Addressed: 1 # of Patients: 9 INTERVENTION Clarified, Engaged, Observed, Encouraged, Challenged, Redirected, Gave Feedback, Explored, Supported, Active Listening, and Suggested Alternative Explain: engaged in check in. Reviewed clients goals from the treatment plan this hour. New group member introductions RESPONSE: the client checked in. No reported use since last visit. Reports avoidance of triggers, high risk people and places. 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 Mood stable. No safety issues reported this day. Motivated to comply with EAP, maintain her employment. Encouraged to begin attending AA Recovery Skills Group Start Time: 8 pm TotalTime: 50 minutes # of Therapists: 1 Problem(s) Number Addressed: 1 # of Patients: 9 INTERVENTION Clarified, Engaged, Observed, Encouraged, Challenged, Redirected, Gave Feedback, Explored, Supported, Active Listening, and Suggested Alternative Explain: focused on chemical history assignments RESPONSE: the client took the role of listener this hour. Attentive and appropriate. Related to a group members chemical use history this hour specific to progression, negative consequences. Offers feedback, support and encouragement to stay sober. PLAN Continue group treatment as stated in Treatment Plan. Attend self help meetings. Continue to gain insights into problems. Continue to share feelings AND thoughts in group. SOBRIETY (If applicable): 1 week to 2 weeks Clinician: KISHORE Mcbride 11/08/2023 Time: 950 pm Treatment session # 8 [facility] Jerilyn 11-06-2023 HO Telephone (AGPSYCWM) -------- OREN TOBIN ([id number]) 1980 [facility] Date Time Provider Department 11/06/23 LUCY KATZ AGPSYCWM During your visit today, we recorded the following information about you: Deanna Moran LPN 11/06/2023 11:42 AM Signed Requested patient obtain UDS within 24 hours of this call. Patient verbalized understanding. Deanna Moran LPN Allergies As of Date: 11/06/2023 (No Known Allergies) Date Reviewed: 10/23/2023 Reviewed by: Lucy Katz APRN.[employer] HELP DESK TECHNICIAN - Fully Assessed Reason for Visit: Drug Screen For Random Drug Test [262] Prescriptions as of 11/06/2023 - escitalopram oxalate (LEXAPRO) 10 mg tablet 10 mg. - Phentermine HCl 37.5 mg tablet Take 1 tablet by mouth once daily for 90 days. BMI 30.74 - medroxyPROGESTERone (DEPO-PROVERA) 150 mg/mL Inject 1 mL intramuscularly every 12 weeks. Facility-Administered Medications as of 11/06/2023 - medroxyPROGESTERone 150 mg injection (DEPO-PROVERA) Problem List As Of Date 11/06/2023 Noted Resolved Moderate alcohol use disorder (HCC) [F10.20] 10/17/2023 Generalized anxiety disorder [F41.1] 10/17/2023 Major depressive disorder, recurrent episode, m*10/17/2023 Uncomplicated alcohol dependence (HCC) [F10.20] 10/23/2023 Encounter Status:Closed by DEANNA MORAN on 11/06/23 [facility] CONSULT PROGon 11-06-2023 CONSULT PROG HNO ID: [id number] Author: MATILDA BARAKAT LSW Service: DAILY INTENSIVE OP Author Type: Therapist Type: Consult Progress Note Filed: 11/06/2023 21:30 Note Text: SENSITIVE ADRC DAILY PROGRESS NOTE/ INTENSIVE OUTPATIENT PROGRAM/ PHP Due to the federal emergency declaration and the need for ongoing mental health services, the following visit was completed virtually and informed consent obtained orally to reduce the risk of COVID-19 exposure. Oral consent to services related to virtual visits was obtained after information was sent via [employer] or read to patient if CBTechart not available." PATIENT NAME: Oren Tobin SERVICE DATE: 11/06/2023 SERVICE TIME: 6-9 PM Diagnosis: Alcohol Use Disorder Interval Progress: Stable Patient's Participation: Attentive AND involved BEHAVIOR APPEARANCE: Well Groomed ATTITUDE: Cooperative AFFECT: Appropriate MOOD: Well Adjusted ORIENTATION: Oriented to person, place and time THOUGHT: Logical SPEECH: Normal EYE CONTACT: Good Describe Change Noted Throughout the Day: no remarkable change. Consistent affect to content GROUP THERAPY: Coping Strategies Group Start Time: 7 pm TotalTime: 50 minutes # of Therapists: 1 Problem(s) Number Addressed: 1 # of Patients: 8 INTERVENTION: Clarified, Engaged, Observed, Encouraged, Challenged, Redirected, Psychoeducation, Gave Feedback, Explored, Supported, Active Listening, and Suggested Alternative Explain: focused on spiritual principles this hour RESPONSE: engaged in the group discussion. Further discussed living into steps 1-3 and used relationships as an example. Redirected and provided education on the four absolutes as well as the opposing character defects/signs/symptoms of the disease this hour. Shared history of dishonesty to herself about her drinking. " I would tell myself I am not an alcoholic and I can control it" Dynamic Group Start Time: 6 pm TotalTime: 50 minutes # of Therapists: 1 Problem(s) Number Addressed: 1 # of Patients: 8 INTERVENTION Clarified, Engaged, Observed, Encouraged, Challenged, Redirected, Gave Feedback, Explored, Supported, Active Listening, and Suggested Alternative Explain: engaged in check in. RESPONSE: the client checked in. No reported use of AOD since last session. Reported completing ADL's this day including work duties, household duties prior to group without any reported difficulty. Mood is reported as stable WNL. No major depressive symptoms or safety concerns disclosed. Engaging in self care and caring for her family whom have the flu. Cravings low. Avoiding triggers and telling friends and family she is getting sober. Commended for telling on her disease. Recovery Skills Group Start Time: 8 pm TotalTime: 50 minutes # of Therapists: 1 Problem(s) Number Addressed: 1 # of Patients: 8 INTERVENTION Clarified, Engaged, Observed, Encouraged, Challenged, Redirected, Gave Feedback, Explored, Supported, Active Listening, and Suggested Alternative Explain: focused on chemical history assignments this hour RESPONSE: the client was attentive and appropriate. Took the role of listener this hour. The client related to a group members chemical history assignment specific to progression and negative consequences of using. The client demonstrated empathy towards others and offers encouragement to stay sober. PLAN Continue group treatment as stated in Treatment Plan. Attend self help meetings. Continue to gain insights into problems. Continue to share feelings AND thoughts in group. SOBRIETY (If applicable): 1 week to 2 weeks Clinician: KISHORE Mcbride 11/06/2023 Time: 929 pm Treatment session # 7 [facility] CONSULT PROGon 11-05-2023 CONSULT PROG HNO ID: [id number] Author: MATILDA BARAKAT LSW Service: DAILY INTENSIVE OP Author Type: Therapist Type: Consult Progress Note Filed: 11/05/2023 21:32 Note Text: SENSITIVE ADRC DAILY PROGRESS NOTE/ INTENSIVE OUTPATIENT PROGRAM/ PHP Due to the federal emergency declaration and the need for ongoing mental health services, the following visit was completed virtually and informed consent obtained orally to reduce the risk of COVID-19 exposure. Oral consent to services related to virtual visits was obtained after information was sent via [facility] [employer] or read to patient if CBTechart not available." PATIENT NAME: Oren Tobin SERVICE DATE: 11/05/2023 SERVICE TIME: 6-9 PM Diagnosis: Alcohol Use Disorder Interval Progress: Stable Patient's Participation: Attentive AND involved BEHAVIOR APPEARANCE: Well Groomed ATTITUDE: Cooperative AFFECT: Appropriate MOOD: Well Adjusted ORIENTATION: Oriented to person, place and time THOUGHT: Logical SPEECH: Normal EYE CONTACT: Good Describe Change Noted Throughout the Day: no remarkable change GROUP THERAPY: Coping Strategies Group Start Time: 7 pm TotalTime: 50 minutes # of Therapists: 1 Problem(s) Number Addressed: 1 # of Patients: 12 INTERVENTION: Clarified, Engaged, Observed, Encouraged, Challenged, Redirected, Psychoeducation, Gave Feedback, Explored, Supported, Active Listening, and Suggested Alternative Explain: focused on living into steps 1-3 this hour RESPONSE: engaged in the group discussion. Continued focus on spirituality. Discussed the steps as spiritual. Redirected to living into steps 1-3. Discussed worry as an attempt to control people, places. Redirected to focusing on what one can control and turning over what cannot. Reframed to deceasing anxiety and increasing peace, mario. Took the role of listener. Client gained coping skills, tools for the tool box this hour Dynamic Group Start Time: 6 pm TotalTime: 50 minutes # of Therapists: 1 Problem(s) Number Addressed: 1 # of Patients: 12 INTERVENTION Clarified, Engaged, Observed, Encouraged, Challenged, Redirected, Gave Feedback, Explored, Supported, Active Listening, and Suggested Alternative Explain: engaged in check in. BAM administered this hour RESPONSE: the client checked in. No reported use of AOD over the weekend. Shared attending outside support since last visit. Continues to report avoidance of high risk people and places and utilizing supportive attachments. Mood reported as stable. No safety issues reported this day shared engaging in self care, recovering from the flu. Shared caring for her family whom currently has the flu. Cravings low since last visit. Redirected to decreasing exposure to triggers to manage cravings this hour. Recovery Skills Group Start Time: 8 pm TotalTime: 50 minutes # of Therapists: 1 Problem(s) Number Addressed: 1 # of Patients: 12 INTERVENTION Clarified, Engaged, Observed, Encouraged, Challenged, Redirected, Psychoeducation, Gave Feedback, Explored, Supported, Active Listening, and Suggested Alternative Explain: focused on spiritual principles this hour RESPONSE: engaged in the group discussion. Focused on the spiritual principles this hour. Reviewed the four absolutes, honesty unselfishness, love and purity. Further discussed forgiveness, patience, hope, acceptance, humility and gratitude this hour. Reframed principles to coping skills to live life on life s terms this hour. Client offered support and empathy towards a group member this hour. Offered encouragement, support and emotional validation this hour. PLAN Continue group treatment as stated in Treatment Plan. Attend self help meetings. Continue to gain insights into problems. Continue to share feelings AND thoughts in group. Patient Data Brief Addiction Monitor (BAM) Brief Addiction Monitor Scores (7 Day) 10/16/2023 10/29/2023 Use Score 2 1 Risk Factors Score 5 7 Protective Factors Score 14 - IOP Daily Questionnaire IOP Daily 10/30/2023 11/01/2023 11/04/2023 Today, is your belief in your ability to use your Safety Plan in a crisis at 90%? Yes Yes Yes Today, have you wished you were or wished you could go to sleep and not wake up? No No No Today, have you actually had any thoughts of killing yourself? No No No On a scale of 1 to 10 how would you rate your mood now? 5 8 9 SOBRIETY (If applicable): 1 week plus Clinician: KISHORE Mcbride 11/05/2023 Time: 931 pm Treatment session # 6 [facility] OREN TOBIN ([id number]) 1980 [facility] Date Time Provider Department 11/01/23 LUCY KATZ AGPSYCWM During your visit today, we recorded the following information about you: Deanna Moran LPN 11/01/2023 10:49 AM Signed Left message for patient to obtain UDS within 24 hours of this call. Deanna Moran Allergies As of Date: 11/01/2023 (No Known Allergies) Date Reviewed: 10/23/2023 Reviewed by: Lucy Katz APRN.[facility] - Fully Assessed Reason for Visit: Drug Screen For Random Drug Test [262] Prescriptions as of 11/01/2023 - escitalopram oxalate (LEXAPRO) 10 mg tablet 10 mg. - Phentermine HCl 37.5 mg tablet Take 1 tablet by mouth once daily for 90 days. BMI 30.74 - medroxyPROGESTERone (DEPO-PROVERA) 150 mg/mL Inject 1 mL intramuscularly every 12 weeks. Facility-Administered Medications as of 11/01/2023 - medroxyPROGESTERone 150 mg injection (DEPO-PROVERA) Problem List As Of Date 11/01/2023 Noted Resolved Moderate alcohol use disorder (HCC) [F10.20] 10/17/2023 Generalized anxiety disorder [F41.1] 10/17/2023 Major depressive disorder, recurrent episode, m*10/17/2023 Uncomplicated alcohol dependence (HCC) [F10.20] 10/23/2023 Encounter Status:Closed by DEANNA MORAN on 11/01/23 [facility] CONSULT PROGon 11-01-2023 CONSULT PROG HNO ID: [id number] Author: MATILDA BARAKAT LSW Service: DAILY INTENSIVE OP Author Type: Therapist Type: Consult Progress Note Filed: 11/01/2023 21:41 Note Text: SENSITIVE ADRC DAILY PROGRESS NOTE/ INTENSIVE OUTPATIENT PROGRAM/ PHP Due to the federal emergency declaration and the need for ongoing mental health services, the following visit was completed virtually and informed consent obtained orally to reduce the risk of COVID-19 exposure. Oral consent to services related to virtual visits was obtained after information was sent via [facility] [employer] or read to patient if CBTechart not available." PATIENT NAME: Oren Tobin SERVICE DATE: 11/01/2023 SERVICE TIME: 6-9 PM Diagnosis: Alcohol Use Disorder Interval Progress: Stable Patient's Participation: Attentive AND involved BEHAVIOR APPEARANCE: Well Groomed ATTITUDE: Cooperative AFFECT: Appropriate MOOD: Well Adjusted ORIENTATION: Oriented to person, place and time THOUGHT: Logical SPEECH: Normal EYE CONTACT: Good Describe Change Noted Throughout the Day: no remarkable change GROUP THERAPY: Coping Strategies Group Start Time: 7 pm TotalTime: 50 minutes # of Therapists: 1 Problem(s) Number Addressed: 1 # of Patients: 12 INTERVENTION: Clarified, Engaged, Observed, Encouraged, Challenged, Redirected, Psychoeducation, Gave Feedback, Explored, Supported, Active Listening, and Suggested Alternative Explain: continued focus on step one-unmanagability this hour RESPONSE: engaged in the group discussion. Reviewed powerlessness from the previous session, loss of control over use, behavior and outcome of use. Redirected to the unmanagability or consequences of using this hour. Continued focus on the step one workbook. Client attentive, engaged and offers examples of consequences this hour. Shared her recent employment consequences as a result of powerlessness over alcohol this hour. Dynamic Group Start Time: 6 pm TotalTime: 50 minutes # of Therapists: 1 Problem(s) Number Addressed: 1 # of Patients: 12 INTERVENTION Clarified, Engaged, Observed, Encouraged, Challenged, Redirected, Gave Feedback, Explored, Supported, Active Listening, and Suggested Alternative Explain: engaged in check in. Reviewed goals from the master treatment plan this hour RESPONSE: the client checked in. No reported use of AOD since last visit. Verbalized progress, a positive self efficacy towards meetings goals. Client reported completing ADL's this day prior group without any difficulty. Verbalized avoidance of triggers. Cravings low since last session. Mood reported as stable, no significant anxiety, major depressive symptoms or safety concerns verbalized this day. Shared not feeling well this hour. Focused on self care this day Recovery Skills Group Start Time: 8 pm TotalTime: 50 minutes # of Therapists: 1 Problem(s) Number Addressed: 1 # of Patients: 12 INTERVENTION Clarified, Engaged, Observed, Encouraged, Challenged, Redirected, Gave Feedback, Explored, Supported, Active Listening, and Suggested Alternative Explain: focused on chemical history assignments this hour RESPONSE: the client took the role of listener. Attentive and appropriate. Related to a group members chemical history specific to progression of the disease and negative consequences of using. Offers recovery focused feedback and support. PLAN Continue group treatment as stated in Treatment Plan. Attend self help meetings. Continue to gain insights into problems. Continue to share feelings AND thoughts in group. SOBRIETY (If applicable): 7 days or less Clinician: KISHORE Mcbride 11/01/2023 Time: 941 pm Treatment session # 5 [facility] CONSULT PROG HNO ID: [id number] Author: MATILDA BARAKAT LSW Service: DAILY INTENSIVE OP Author Type: Therapist Type: Consult Progress Note Filed: 11/01/2023 21:40 Note Text: -------- Summary: weekly team review note -------- MULTIDISCIPLINARY CARE PLAN PLAN IMPLEMENTATION DATE: 10/31/2023 REASON(S) FOR ICP: Substance use disorders COMMON COMPLAINTS AND PRIOR EVALUATIONS: 1. Problematic use of mood altering chemicals ICP COMMITTEE RECOMMENDATIONS: 1. Continue IOP services at [facility] 2. Recommend aftercare services following successful completion of IOP for ongoing stabilization and support 3. Continue medical appointments at [facility] with the unit physician 4. Continue to assess for the need for increased LOC Drank over super bowl weekend. IOP will be extended beyond 2 week observation COMMUNITY SOCIAL SERVICE SUPPORT PLAN: 1. AA, NA, BEULAH This consensus plan was developed by the group members of the Individual Care Plan committee which met in person on 10/31/[address]. [address] Magdy moran nurse Sanjay forbes clinical delivery room supervisor Maureen garrison dipper clock and watch hands licdc counselor DOCUMENTED BY: KISHORE Mcbride PATIENT NAME: Oren Tobin DATE: November 01, 2023 TIME: 1:53 PM [facility] CONSULT PROGon 10-30-2023 CONSULT PROG HNO ID: [id number] Author: MATILDA BARAKAT LSW Service: DAILY INTENSIVE OP Author Type: Therapist Type: Consult Progress Note Filed: 10/30/2023 21:30 Note Text: SENSITIVE [facility] DAILY PROGRESS NOTE/ INTENSIVE OUTPATIENT PROGRAM/ PHP Due to the federal emergency declaration and the need for ongoing mental health services, the following visit was completed virtually and informed consent obtained orally to reduce the risk of COVID-19 exposure. Oral consent to services related to virtual visits was obtained after information was sent via [employer] or read to patient if CBTechart not available." PATIENT NAME: Oren Tobin SERVICE DATE: 10/30/2023 SERVICE TIME: 6-9 PM Diagnosis: Alcohol Use Disorder Interval Progress: Stable Patient's Participation: Attentive AND involved BEHAVIOR APPEARANCE: Well Groomed ATTITUDE: Cooperative AFFECT: Appropriate MOOD: Well Adjusted ORIENTATION: Oriented to person, place and time THOUGHT: Logical SPEECH: Normal EYE CONTACT: Good Describe Change Noted Throughout the Day: no remarkable change. Consistent affect to content GROUP THERAPY: [facility] Start Time: 7 pm TotalTime: 50 minutes # of Therapists: 1 Problem(s) Number Addressed: 1 # of Patients: 12 INTERVENTION: Clarified, Engaged, Observed, Encouraged, Challenged, Redirected, Psychoeducation, Gave Feedback, Explored, Supported, Active Listening, and Suggested Alternative Explain: focused on spirituality this hour RESPONSE: engaged in the group discussion. Discussed recovery, sobriety as spiritual. Discussed the disease impacting the mind, body and spirit. Redirected to the spiritual toll of addiction and one's DOC becoming one's higher power this hour. Redirected to the failure of willpower, turning life over to a power greater than yourself. Took the role of listener this hour. Shared having begun praying recently. Dynamic Group Start Time: 6 pm TotalTime: 50 minutes # of Therapists: 1 Problem(s) Number Addressed: 1 # of Patients: 12 INTERVENTION Clarified, Engaged, Observed, Encouraged, Challenged, Redirected, Gave Feedback, Explored, Supported, Active Listening, and Suggested Alternative Explain: engaged in check in. RESPONSE: the client checked in. No reported use of AOD since last nights group session. No AA attendance reported this day prior to group. The client reports avoidance of high risk people and places this day prior to group. Mood stable. No safety issues or major depressive symptoms reported this day. Completed all ADL's this day without any reported difficulty. Client returned HR form with delivery room supervisor signature this day. Faxed over leave of absence paperwork to HR and hard copies files with medical [facility] Start Time: 8 pm TotalTime: 50 minutes # of Therapists: 1 Problem(s) Number Addressed: 1 # of Patients: 12 INTERVENTION Clarified, Engaged, Observed, Encouraged, Challenged, Redirected, Psychoeducation, Gave Feedback, Explored, Supported, Active Listening, and Suggested Alternative Explain: focused on step one, powerlessness this hour RESPONSE: engaged in the group discussion. Began reviewing the step one workbook. Discussed powerlessness over chemical. Redirected to the symptoms of the disease, inability to abstain, inability to maintain abstinence and inability to limit the amount used this hour. Client related her recent relapse to powerlessness. The inability to abstain and limit amount of alcohol use once she started drinking. Encouraged the client to begin attending AA focusing on sobriety from all AOD PLAN Continue group treatment as stated in Treatment Plan. Attend self help meetings. Continue to gain insights into problems. Continue to share feelings AND thoughts in group. SOBRIETY (If applicable): 7 days or less Clinician: KISHORE Mcbride 10/30/2023 Time: 929 pm Treatment session # 4 [facility] OREN TOBIN ([id number]) 1980 F [facility] Date Time Provider Department 10/29/23 LUCY KATZ AGPSYCWM During your visit today, we recorded the following information about you: Deanna Moran LPN 10/29/2023 11:06 AM Signed Left message for patient to obtain UDS within 24 hours of this call. Deanna Moran Allergies As of Date: 10/29/2023 (No Known Allergies) Date Reviewed: 10/23/2023 Reviewed by: Lucy Katz APRN.[facility] - Fully Assessed Reason for Visit: Drug Screen For Random Drug Test [262] Prescriptions as of 10/29/2023 - escitalopram oxalate (LEXAPRO) 10 mg tablet 10 mg. - Phentermine HCl 37.5 mg tablet Take 1 tablet by mouth once daily for 90 days. BMI 30.74 - medroxyPROGESTERone (DEPO-PROVERA) 150 mg/mL Inject 1 mL intramuscularly every 12 weeks. Facility-Administered Medications as of 10/29/2023 - medroxyPROGESTERone 150 mg injection (DEPO-PROVERA) Problem List As Of Date 10/29/2023 Noted Resolved Moderate alcohol use disorder (HCC) [F10.20] 10/17/2023 Generalized anxiety disorder [F41.1] 10/17/2023 Major depressive disorder, recurrent episode, m*10/17/2023 Uncomplicated alcohol dependence (HCC) [F10.20] 10/23/2023 Encounter Status:Closed by SAMMY MORANA on 10/29/23 Normal [facility] CONSULT PROGon 10-29-2023 CONSULT PROG HNO ID: [id number] Author: MATILDA BARAKAT LSW Service: DAILY INTENSIVE OP Author Type: Therapist Type: Consult Progress Note Filed: 10/29/2023 21:26 Note Text: SENSITIVE [facility] DAILY PROGRESS NOTE/ INTENSIVE OUTPATIENT PROGRAM/ PHP Due to the federal emergency declaration and the need for ongoing mental health services, the following visit was completed virtually and informed consent obtained orally to reduce the risk of COVID-19 exposure. Oral consent to services related to virtual visits was obtained after information was sent via [employer] or read to patient if CBTechart not available." PATIENT NAME: Oren Tobin SERVICE DATE: 10/29/2023 SERVICE TIME: 6-9 PM Diagnosis: Alcohol Use Disorder Interval Progress: Stable Patient's Participation: Attentive AND involved BEHAVIOR APPEARANCE: Well Groomed ATTITUDE: Cooperative AFFECT: Appropriate MOOD: Well Adjusted ORIENTATION: Oriented to person, place and time THOUGHT: Logical SPEECH: Normal EYE CONTACT: Good Describe Change Noted Throughout the Day: no remarkable change. Consistent to topic. GROUP THERAPY: [facility] Start Time: 7 pm TotalTime: 50 minutes # of Therapists: 1 Problem(s) Number Addressed: 1 # of Patients: 10 INTERVENTION: Clarified, Engaged, Observed, Encouraged, Challenged, Redirected, Psychoeducation, Gave Feedback, Explored, Supported, Active Listening, and Suggested Alternative Explain: focused on abstinence, the disease this hour RESPONSE: the client was engaged in the group discussion. Focused on need for abstinence from all AOD to arrest the disease. Redirected to acceptance as a process as well as step one " drink drug equals trouble"the client verbalized understanding as well as feeling validated working through acceptance of the disease, permanency of the disease, need to ongoingly treat addiction. Client encouraged to focus on sobriety. IOP will be extended due to recent use. Redirected client to courage to come to group, tell on her disease and accept feedback this hour Dynamic Group Start Time: 6 pm TotalTime: 50 minutes # of Therapists: 1 Problem(s) Number Addressed: 1 # of Patients: 10 INTERVENTION Clarified, Engaged, Observed, Encouraged, Challenged, Redirected, Gave Feedback, Explored, Supported, Active Listening, and Suggested Alternative Explain: engaged in check in. BAM assigned this hour RESPONSE: the client checked in. The client reported she drank 4-5 beers yesterday watching the super bowl with using friends while hosting a super bowl alliance party. Stated " I'm going to fail my drug test tomorrow" stated " I knew not to do it but I did anyways" frustration evident. Redirected to the disease, exposure to triggers. Cravings elevated while hosting a super bowl alliance party with drinking friends. since last session. Normalized cravings and redirected to early recovery. Further redirected to the need for sober people places and things to stay sober. Mood reported as stable, WNL. Denies any major depressive symptoms or safety concerns this hour. Motivated to comply with her EAP and maintain her current employment. Pleasant and cooperative. [facility] Start Time: 8 pm TotalTime: 50 minutes # of Therapists: 1 Problem(s) Number Addressed: 1 # of Patients: 10 INTERVENTION Clarified, Engaged, Observed, Encouraged, Challenged, Redirected, Gave Feedback, Explored, Supported, Active Listening, and Suggested Alternative Explain: focused on chemical history assignments this hour RESPONSE: the client was attentive and appropriate. Took the role of listener this hour hour. The client reported relating to a group members chemical use history specific to negative consequences and the progression of the disease. Offers encouragement, demonstrates empathy towards others. PLAN Continue group treatment as stated in Treatment Plan. Attend self help meetings. Continue to gain insights into problems. Continue to share feelings AND thoughts in group. Patient Data Brief Addiction Monitor (BAM) Brief Addiction Monitor Scores (7 Day) 10/16/2023 10/29/2023 Use Score 2 1 Risk Factors Score 5 7 Protective Factors Score 14 - IOP Daily Questionnaire IOP Daily 10/19/2023 10/24/2023 10/29/2023 Today, is your belief in your ability to use your Safety Plan in a crisis at 90%? Yes Yes Yes Today, have you wished you were or wished you could go to sleep and not wake up? No No No Today, have you actually had any thoughts of killing yourself? No No No On a scale of 1 to 10 how would you rate your mood now? 8 9 7 SOBRIETY (If applicable): 1 week Clinician: KISHORE Mcbride 10/29/2023 Time: 926 pm Treatment session # 3 [facility] CONSULT PROGon 10-25-2023 CONSULT PROG HNO ID: [id number] Author: MATILDA BARAKAT LSW Service: DAILY INTENSIVE OP Author Type: Therapist Type: Consult Progress Note Filed: 10/25/2023 21:30 Note Text: SENSITIVE [facility] DAILY PROGRESS NOTE/ INTENSIVE OUTPATIENT PROGRAM/ PHP Due to the federal emergency declaration and the need for ongoing mental health services, the following visit was completed virtually and informed consent obtained orally to reduce the risk of COVID-19 exposure. Oral consent to services related to virtual visits was obtained after information was sent via [employer] or read to patient if CBTechart not available." PATIENT NAME: Oren Tobin SERVICE DATE: 10/25/2023 SERVICE TIME: 6-9 PM Diagnosis: Alcohol Use Disorder Interval Progress: Stable Patient's Participation: Attentive AND involved BEHAVIOR APPEARANCE: Well Groomed ATTITUDE: Cooperative AFFECT: Appropriate MOOD: Well Adjusted ORIENTATION: Oriented to person, place and time THOUGHT: Logical SPEECH: Normal EYE CONTACT: Good Describe Change Noted Throughout the Day: no remarkable change GROUP THERAPY: [facility] Start Time: 7 pm TotalTime: 50 minutes # of Therapists: 1 Problem(s) Number Addressed: 1 # of Patients: 10 INTERVENTION: Clarified, Engaged, Observed, Encouraged, Challenged, Redirected, Psychoeducation, Gave Feedback, Explored, Supported, Active Listening, and Suggested Alternative Explain: focused on resentments this hour RESPONSE: engaged in the group discussion. Focused on resentments this hour. Discussed " resentments are the number one offender as well as sober people do not have the luxury of resentments" client shared examples of resentments as well as justification to use, self medicate this hour. Shared having a resentment towards her father. Shared he is alcoholic. Verbalized a positive family history of addiction. Shared her resentment stems from her father being absent when in active use vs part of her life when sober. Dynamic Group Start Time: 6 pm TotalTime: 50 minutes # of Therapists: 1 Problem(s) Number Addressed: 1 # of Patients: 10 INTERVENTION Clarified, Engaged, Observed, Encouraged, Challenged, Redirected, Gave Feedback, Explored, Supported, Active Listening, and Suggested Alternative Explain: engaged in check in. New client introduction. Reviewed clients goal on the master treatment plan RESPONSE: the client checked in. No reported use since last visit. Welcoming of a new group member. The client verbalized a positive self efficacy and progress being made towards meeting treatment plan goals identified on the ITP this hour. Validated clients statement and redirected to the self fulfilling prophecy. Encouraged the client to attend AA, outside support over the weekend. Client avoiding triggers, high risk people and places. Mood reported as stable, WNL and denied any safety concerns. [facility] Start Time: 8 pm TotalTime: 50 minutes # of Therapists: 1 Problem(s) Number Addressed: 1 # of Patients: 10 INTERVENTION Clarified, Engaged, Observed, Encouraged, Challenged, Redirected, Psychoeducation, Gave Feedback, Explored, Supported, Active Listening, and Suggested Alternative Explain: focused on letting go of resentments this hour RESPONSE: engaged in the group discussion. Discussed letting go of resentments. Redirected to the goal of recovery is to be happy joyous and free. Discussed forgiveness as the antidote to resentment. Redirected the client to empowerment and choice this hour. The client shared and was redirected to forgiving her father for getting sick. Redirected to the process of " not taking his illness personally" redirected to a process this hour and the beginning of healing PLAN Continue group treatment as stated in Treatment Plan. Attend self help meetings. Continue to gain insights into problems. Continue to share feelings AND thoughts in group. SOBRIETY (If applicable): 1 week Clinician: KISHORE Mcbride 10/25/2023 Time: 930 pm Treatment session # 2 [facility] CONSULT PROG HNO ID: [id number] Author: MATILDA BARAKAT LSW Service: DAILY INTENSIVE OP Author Type: Therapist Type: Consult Progress Note Filed: 10/25/2023 21:28 Note Text: -------- Summary: weekly team review note -------- MULTIDISCIPLINARY CARE PLAN PLAN IMPLEMENTATION DATE: 10/25/2023 REASON(S) FOR INDIVIDUAL CARE PLAN: Substance use disorders COMMON COMPLAINTS AND PRIOR EVALUATIONS: 1. Problematic use of AOD resulting in recurring negative consequences ICP COMMITTEE RECOMMENDATIONS: 1. Continue IOP services at [facility] 2. Recommend aftercare following IOP for relapse prevention/ongoing stabilization 3. Continue to attend scheduled medical appointments with the unit physician 4. Continue random UDS 5. Continue to assess for the need for increased LOC Alcohol is DOC denies use of stimulants despite recent UDS motivated by HR COMMUNITY SOCIAL SERVICE SUPPORT PLAN: 1. AA, NA, BEULAH [employer] Major Participation in this Plan of Care: Attending: Dr. Curran Nurse Practitioner: Aidan Katz Physician Wool Supplier: marifer mckenna Nurse: deanna moran Clinical delivery room supervisor sanjay forbes Counselor maureen barakat [facility] DOCUMENTED BY: KISHORE Mcbride PATIENT NAME: Oren Tobin DATE: October 25, 2023 TIME: 2:11 PM [facility] CNOVon 10-23-2023 CNOV Office Visit (AGPSYC ) -------- OREN TOBIN ([id number]) 1980 F [facility] Date Time Provider Department 10/23/23 9:30 AM LUCY KATZWKaren During your visit today, we recorded the following information about you: Temperature Pulse Respiration Blood pressure 98.1 degrees 132/minute 18/minute 145/95 Weight 67.9 kg Lucy Katz APRN.[facility]ION[facility] 10/23/2023 12:27 PM Signed [facility] INITIAL OFFICE VISIT PATIENT: Oren Tobin MRD: [id number] DATE: October 23, 2023 This is an in office visit. It requires patient/provider interaction for medical decision-making as documented below. The patient is first identified by full name and date of . IDENTIFYING INFORMATION: Oren is a 42 year old female with a remote history of cocaine abuse reportedly 15 years ago. 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 She was pulled for a random URINE DRUG SCREEN on 10/03/23 and was taken off work on 10/11/23 for testing positive for a stimulant. She has been on phentermine for weight loss for 5 weeks. Denies any cocaine use for 15 years. States her alcohol use was higher last year because of her anxiety, and was drinking every night. She started seeing a psychiatrist and got her medications adjusted and was doing well until recently and her anxiety is higher and has been drinking more alcohol. From Initial Assessment: PRECIPITATING PROBLEM(S): I got an email from my nurse valuation manager that I was selected to submit a UDS on 10/03/23. I had to go up to Occupational Health to submit. I was asked if I was on medication and I told her yes; weight loss meds. I am on phentermine 37.5mg-1 time a day. Its a new script and I have been on it for 3 weeks this Sunday10/19/2023. It is prescribed by my family doctor Dr. Tg JASSO signed. I am also prescribed generic lexapro 10mg, Wellbutrin XL 300mg and Im also on hydrazine 10mg as needed for anxiety which is prescribed by my psychiatrist. Dr. Rivera signed. I was told I tested positive for cocaine and then I was told to go home and call [facility]. I got in the very next day. I talked to Kateryna and signed all the paperwork last Sun10/12/2023 and made my appointment for [facility]. I don't use cocaine anymore. I used Meth and Cocaine 15 years ago and I think it was a way to medicate myself. I decided to quit and I did. I haven't done any of it for 15 years. I am now prescribed the appropriate medications to manage my MH needs Gayla for 10 years, I have 2 children, 1 is 21- a daughter and a 11 year old son. 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 I have been floating in family care, express care and internal care. I have been a [employer] for 22 years. I go to work, I work my 12 hours shifts, I take my son to [facility] and I come home. I live in [place] and we have been there for 2 years. Years ago I was diagnosed with bipolar and depression by family doctors. That was a wrong diagnosis; non eo f the meds prescribed even helped. In this last year I went to a psychiatrist and he said Im not bipolar and he has straightened out my meds and now I feel stable. The UDS from [address] shows a diluted specimen test and a result of 1084 ng/ml of cocaine metabolite. Received after the assessment was completed with the client. Current withdrawal symptoms: none HISTORY OF PRESENT ILLNESS: ALCOHOL: How old were you at your first use of alcohol: 17 Progression of Use: I started in high school I would go out on weekends or after school. I would drink maybe 3-4 drinks. In my 20s I stopped drinking for a while I had an . After about 3 I started to drink on the weekends and I would get drunk. It depended on who I was with and were I was at. Maybe 7-8 drinks in my 30's. When I was about 40 I started to drink daily in the evenings before I was medicated. She referred me to the psychiatrist and I was placed on meds and I have decreased my use of alcohol over the past 1.5 years. Now I drink occasionally on the weekends maybe 3-4 drinks, 3 - 4 times a month. Weekends only Peak of Use: In my 30's Any Current Use: Yes: 10/16/2023- 4-5 kamran trivedi Substance Misuse Reported: Yes Use Disorder Criteria-- eleven criteria Over the last twelve months: Substance is often taken in larger amounts or over a longer period than was intended?Yes There is a persistent desire or unsuccessful efforts to cut down or control substance use? No A great deal of time is spent in activities necessary to obtain the substance, use the substance, or recover from its effects? No Craving or a strong desire or urge t (more content not included)... [facility] CONSULT PROGon 10-23-2023 CONSULT PROG HNO ID: [id number] Author: MATILDA BARAKAT LSW Service: DAILY INTENSIVE OP Author Type: Therapist Type: Consult Progress Note Filed: 10/23/2023 21:08 Note Text: SENSITIVE [facility] DAILY PROGRESS NOTE/ INTENSIVE OUTPATIENT PROGRAM/ PHP Due to the federal emergency declaration and the need for ongoing mental health services, the following visit was completed virtually and informed consent obtained orally to reduce the risk of COVID-19 exposure. Oral consent to services related to virtual visits was obtained after information was sent via [employer] or read to patient if CBTechart not available." PATIENT NAME: Oren Tobin SERVICE DATE: 10/23/2023 SERVICE TIME: 6-9 PM Diagnosis: Alcohol Use Disorder Interval Progress: Stable Patient's Participation: Attentive AND involved BEHAVIOR APPEARANCE: Well Groomed ATTITUDE: Cooperative AFFECT: Appropriate MOOD: Well Adjusted ORIENTATION: Oriented to person, place and time THOUGHT: Logical SPEECH: Normal EYE CONTACT: Good Describe Change Noted Throughout the Day: no remarkable change. Consistent to content GROUP THERAPY: [facility] Start Time: 7 pm TotalTime: 50 minutes # of Therapists: 1 Problem(s) Number Addressed: 1 # of Patients: 9 INTERVENTION: Clarified, Engaged, Observed, Encouraged, Challenged, Redirected, Psychoeducation, Gave Feedback, Explored, Supported, Active Listening, and Suggested Alternative Explain: continued focus on coping skills RESPONSE: engaged in the group discussion. Continued focus on coping skills including thought shifting and stopping. Discussed the technique and tool to cope with thoughts of using, worry, resentment or any other negative intrusive thoughts that may lead to obsession/rumination. The client shared coloring as a thought shifting technique she uses when anxious. Client shared current anxiety and worry over her employment status due to recent positive UDS Dynamic Group Start Time: 6 pm TotalTime: 50 minutes # of Therapists: 1 Problem(s) Number Addressed: 1 # of Patients: 9 INTERVENTION Clarified, Engaged, Observed, Encouraged, Challenged, Redirected, Gave Feedback, Explored, Supported, Active Listening, and Suggested Alternative Explain: engaged in check in. New group member introductions prior to group orientated the client to zoom IOP. Formulated goals for the treatment plan. Emailed the client the treatment packet including the client expectations including abstinence from all AOD including alcohol as the expectation of HR. Client given this writers direct phone number. RESPONSE: the client checked in. Introduced self to the group. Identified testing positive at work for cocaine as her crisis for treatment. Shared past history of stimulant use. Stated she quit 15 years ago. Denies any current use to explain UDS results. Motivated to return to her job at the [employer]. Denies any prior treatment. Denies any current use of AOD including alcohol. Completed all ADL's this day prior to session without difficulty. Mood is stable/WNL. No safety issues reported. Shared history of anxiety and depression. Shared being active in treatment and medication compliant. No prior treatment or 12 step involvement reported. Shared pattern of drinking ranging from 3 to 7 days per week. Upwards of 6 plus drinks. History of alcoholism in her family of origin. Shared mild hand tremors when she Dc'd alcohol use after meeting with HR suggesting mild withdrawal symptoms Recovery Skills Group Start Time: 8 pm TotalTime: 50 minutes # of Therapists: 1 Problem(s) Number Addressed: 1 # of Patients: 9 INTERVENTION Clarified, Engaged, Observed, Encouraged, Challenged, Redirected, Psychoeducation, Gave Feedback, Explored, Supported, Active Listening, and Suggested Alternative Explain: focused on feelings management La principles RESPONSE: engaged in the group discussion. Focused on feelings management skills, managing internal reactivity this hour. Discussed the concepts of high and low self differentiation, fusion, internal reactivity and redirected the client to the art of feelings management, thinking clearly when emotions are elevated. Focused on clients strengths with this skills this our. Identified where progress, growth and application can be made. The client stated Shared reactivity with her mother this hour. Motivated to improve this relationship. PLAN Continue group treatment as stated in Treatment Plan. Attend self help meetings. Continue to gain insights into problems. Continue to share feelings AND thoughts in group. SOBRIETY (If applicable): 1 week Clinician: KISHORE Mcbrdie 10/23/2023 Time: 907 pm Treatment session # 1 [facility] CONSULT PROG HNO ID: [id number] Author: MATILDA BARAKAT LSW Service: DAILY INTENSIVE OP Author Type: Therapist Type: Consult Progress Note Filed: 10/23/2023 21:04 Note Text: -------- Summary: master treatment plan IOP -------- MASTER TREATMENT PLAN SERVICE DATE: 10/23/2023 ADMISSION DATE: 10/23/23 SERVICE TIME: 420 pm Team Members Participating in the Plan of Care: Program Physician: aidan katz Primary Therapist: [facility] ASSESSMENT Diagnosis: Substance Related Disorders Alcohol Dependence No diagnosis Estimated LOS: 6 weeks IOP Problem: the client reported testing positive for cocaine at her place of employment and having current HR involvement As Evidenced by: client self report Resulting in (Functional Impact): current leave of absence from work. Required to participate in IOP by HR. Elevated stress, anxiety, financial concerns Usp Goal/Discharge Criteria: the client will comply with the mandates of HR to maintain her current employment Goal Relevant Strengths/Supports: motivated to maintain her current employment Date Open: 10/23/23 Goal-(in patient's own words) " I want to get back to work and keep my job " Short Term Objective Statement (behavioral measurable time frame): the client will comply with the terms of her account representative including abstaining from the use of AOD, submitting UDS screens upon request and completing all programming and directives given by HR as evidenced by self disclosure in group with counselor over 6 weeks Date Initiated: 10/23/23 Target Date: 6 weeks Review Date: within 30 days of admission to IOP Intervention - IOP level of care and medication evaluation and treatment. Problem: the client reported a history of anxiety and depressive symptoms As Evidenced by: client self report Resulting in (Functional Impact):mood disturbance, anxiety, depression Certified Hyperbaric Technician Goal/Discharge Criteria: the client will implement healthy coping skills to manage her anxiety and depressive symptoms Goal Relevant Strengths/Supports: motivated to improve her coping skills Date Open: 10/23/23 Goal-(in patient's own words) " I would like to work on my coping skills while I am in the program " Short Term Objective Statement (behavioral measurable time frame): the client will implement a minimum of two healthy coping skills to manage her mood which may include deep breathing, visualization, exercise, utilizing healthy attachments, thought stopping and shifting techniques as evidenced by self disclosure in group with counselor over 6 weeks Date Initiated: 10/23/23 Target Date: 6 weeks Review Date: within 30 days of admission to [facility] Intervention - [facility] level of care and medication evaluation and treatment. Problems identified integral to treatment and referred out: none Problems identified but deferred , not a priority: none Problems identified but patient declined to address: none DOCUMENTED BY: KISHORE Mcbride PATIENT NAME: Oren Tobin DATE: October 23, 2023 TIME: 4:19 PM Normal [facility] ETHYL GLUCURONIDE UR SCRon 0 10-23-2023 Ethyl glucuronide Screen Ql (U) Negative Normal Negative [facility] Comment on above: Order Comment: Speci men Type: URINE SPECIMENOrdering Facility: [facility] Address: [address] [place] [address] Result Comment: Scre en cutoff concentration: 500 ng/mL ethyl glucuronide. Immunoassay screen only. Cross reactivity with other substances can occur with immunoassay screening. Detection of any drug(s) in this panel is presumptive only. These tests are for medical purposes only and should not be used for compliance monitoring, legal, or forensic use. This test was developed and its performance characteristics determined by [facility]'s [facility] [place] ([facility] It has not been cleared or approved by the FDA. [facility] is regulated under CLIA as qualified to perform high-complexity testing. This test is used for clinical purposes. It should not be regarded as investigational or for research. Performed By: #### U EGLUC ####[facility] [id number] [id number] [address] [place] TOX SCREEN ROUT URon 024 Amphetamines Confirm (U) [Mass/Vol] Negative Normal Negative [facility] Comment on above: Order Comment: Speci men Type: URINE SPECIMEN [facility] Address: [address] [place] [address] Result Comment: Cuto ff threshold at 1000 ng/mL. Performed By: #### U TOX2 #### [facility] CLIA [id number] [address] [place] [address] [place] BARBITURATES, URINE Negative Normal Negative [facility] Comment on above: Order Comment: Speci men Type: URINE SPECIMEN [facility] Address: [address] [place] [address] Result Comment: Cuto ff threshold at 200 ng/mL. Performed By: #### U TOX2 #### [facility] CLIA [id number] [address] [place] [address] [place] BENZODIAZEPINES, UR Negative Normal Negative [facility] Comment on above: Order Comment: Speci men Type: URINE SPECIMEN [facility] Address: [address] [place] [address] Result Comment: Cuto ff threshold at 200 ng/mL. Performed By: #### U TOX2 #### [facility] CLIA [id number] [address] [place] [address] [place] Cannabinoids Screen Ql (U) Negative Normal Negative [facility] Comment on above: Order Comment: Speci men Type: URINE SPECIMEN [facility] Address: [address] [place] [address] Result Comment: Cuto ff threshold at 50 ng/mL. Performed By: #### U TOX2 #### [facility] CLIA [id number] [address] [place] [address] [place] Cocaine Ql (U) Negative Normal Negative [facility] Comment on above: Order Comment: Speci men Type: URINE SPECIMEN [facility] Address: [address] [place] [address] Result Comment: Cuto ff threshold at 300 ng/mL. Performed By: #### U TOX2 #### [facility] CLIA [id number] [address] STATES OF [facility] Ethanol (U) [Mass/Vol] <11 Normal <11 [facility] Comment on above: Order Comment: Speci men Type: URINE SPECIMEN [facility] Address: [address] [place] [address] Performed By: #### U TOX2 #### [facility] CLIA [id number] [address] Opiates Screen Ql (U) Negative Normal Negative [facility] Comment on above: Order Comment: Speci men Type: URINE SPECIMEN [facility] Address: [address] [place] [address] Result Comment: Cuto ff threshold at 300 ng/mL. Performed By: #### U TOX2 #### [facility] CLIA [id number] [address] oxyCODONE cutoff Screen (U) [Mass/Vol] Negative Normal Negative [facility] Comment on above: Order Comment: Speci men Type: URINE SPECIMEN [facility] Address: [address] [place] [address] Result Comment: Cuto ff threshold at 100 ng/mL. Performed By: #### U TOX2 #### [facility] CLIA [id number] [address] Phencyclidine Ql (U) Negative Normal Negative [facility] Comment on above: Order Comment: Speci men Type: URINE SPECIMEN [facility] Address: [address] [place] [address] Result Comment: Cuto ff threshold at 25 ng/mL. Performed By: #### U TOX2 #### [facility] CLIA [id number] [address] OF [place] BENZO CONFIRM, URINEon 10-17 7-Aminoclonazepam Confirm (U) [Mass/Vol] <40 Normal <40 [facility] Comment on above: Order Comment: Speci men Type: URINE SPECIMEN [facility] Address: [address] [place] [address] Result Comment: 7-Am milli-clonazepam is the primary metabolite of clonazepam (Klonopin). Presence of 3-Zkkly-bynoeczwyc indicates use of clonazepam-containing drugs. Performed By: #### B ENZOCFMU #### [facility] CLIA [id number] [address] [place] [address] OF [facility] Alpha hydroxyalprazolam Confirm (U) [Mass/Vol] <60 Normal <60 [facility] Comment on above: Order Comment: Speci men Type: URINE SPECIMEN [facility] Address: [address] [place] [address] Result Comment: Alph a-hydroxyalprazolam is the primary metabolite of alprazolam (Xanax). Presence of alpha-hydroxyalprazolam indicates use of alprazolam-containing drugs. Performed By: #### B ENZOCFMU #### [facility] CLIA [id number] [address] [place] [address] [place] [facility] Alpha hydroxytriazolam Confirm (U) [Mass/Vol] <40 Normal <40 [facility] Comment on above: Order Comment: Speci men Type: URINE SPECIMEN [facility] Address: [address] [place] [address] Result Comment: Alph a-hydroxytriazolam is the primary metabolite of triazolam (Halcion). Presence of alpha-hydroxytriazolam indicates use of triazolam-containing drugs. Performed By: #### B ENZOCFMU #### [facility] CLIA [id number] [address] [place] [address] [place] BENZO CONFIRM, NOTE Normal [facility] Comment on above: Order Comment: Speci men Type: URINE SPECIMEN [facility] Address: [address] [place] [address] Result Comment: This test is for medical use only. This test was developed and its performance characteristics determined by [facility]'s [facility] Pathology and Laboratory Medicine [place] ([facility]). It has not been cleared or approved by the FDA. [facility] is regulated under CLIA as qualified to perform high-complexity testing. This test is used for clinical purposes. It should not be regarded as investigational or for research. Performed By: #### B ENZOCFMU #### [facility] CLIA [id number] [address] [place] [address] [place] LORazepam Confirm (U) [Mass/Vol] <40 Normal <40 [facility] Comment on above: Order Comment: Speci men Type: URINE SPECIMEN [facility] Address: [address] [place] [address] Result Comment: Pres ence of lorazepam indicates use of lorazepam-containing drugs. Performed By: #### B ENZOCFMU #### [facility] CLIA [id number] [address] [place] [address] [place] Nordiazepam Confirm (U) [Mass/Vol] <40 Normal <40 [facility] Comment on above: Order Comment: Speci men Type: URINE SPECIMEN [facility] Address: [address] [place] [address] Result Comment: [place] iazepam may arise from nordiazepam-containing drugs or by metabolism of many benzodiazepines including Medazepam (Nobrium), Clorazepate (Tranxene), Halazepam (Paxipam), Prazepam (Centrax), Chlordiazepoxide (Librium), Pinazepam (Domar), and Diazepam (Valium). Nordiazepam is metabolized to oxazepam. Performed By: #### B ENZOCFMU #### [facility] CLIA [id number] [address] [place] [address] [place] Oxazepam [Mass/Vol] <40 Normal <40 [facility] Comment on above: Order Comment: Speci men Type: URINE SPECIMEN [facility] Address: [address] [place] [address] Result Comment: Oxaz epam may arise from oxazepam-containing drugs or by metabolism from many benzodiazepines including Medazepam (Nobrium), Clorazepate (Tranxene), Halazepam (Paxipam), Prazepam (Centrax), Chlordiazepoxide (Librium), Pinazepam (Domar), and Diazepam (Valium). Performed By: #### B ENZOCFMU #### [facility] CLIA [id number] [address] [place] [address] [place] Temazepam Confirm (U) [Mass/Vol] <40 Normal <40 [facility] Comment on above: Order Comment: Speci men Type: URINE SPECIMEN [facility] Address: [address] [place] [address] Result Comment: Nathalie zepam may arise from temazepam-containing drugs or by metabolism from many benzodiazepines including Medazepam (Nobrium), Clorazepate (Tranxene), Halazepam (Paxipam), Prazepam (Centrax), Chlordiazepoxide (Librium), Pinazepam (Domar), and Diazepam (Valium). Temazepam is metabolized to oxazepam. Performed By: #### B ENZOCFMU #### [facility] [place] [id number] [address] [place] [address] [place] CNNURSEon 10-17-2023 CNNURSE Nurse Visit (AGPSYCW M) -------- OREN TOBIN ([id number]) 1980 [facility] Date Time Provider Department 10/17/23 8:30 AM NURSE PSLION AGPSYCWM During your visit today, we recorded the following information about you: Lucy Katz APRN.LIONEL 10/17/2023 11:41 AM Signed Patient here for [facility] visit with assessment counselor and initial urine collected for all substance screenings. Allergies As of Date: 10/17/2023 (No Known Allergies) Date Reviewed: 09/14/2023 Reviewed by: Cayla Mas APRN.IT HELP DESK TECHNICIAN - Fully Assessed Primary Visit Diagnosis:Screening for substance abuse [Z13.89] Order(s):TOX SCREEN ROUT UR [SQUTOX2] Order #: [id number]. #:[id number] PAIN PANEL, UR QUANT [SQUQNTPP] Order #: [id number]. #:[id number] BENZO CONFIRM, URINE [SQUBENZC] Order #: [id number]. #:[id number] ETHYL GLUCURONIDE UR SCR [SQUEGLUC] Order #: [id number]. #:[id number] PAIN PANEL, UR QUANT [[id number]] Reflex Order#: [id number] (Ord#:[id number])Spec. #:[id number] SPECIMEN VALIDITY, URINE [BDB1085] Reflex Order#: [id number] (Ord#:[id number])Spec. #:[id number] BENZO CONFIRM, URINE [[id number]] Reflex Order#: [id number] (Ord#:[id number])Spec. #:[id number] Prescriptions as of 10/17/2023 - Phentermine HCl 37.5 mg tablet Take 1 tablet by mouth once daily for 90 days. BMI 30.74 - medroxyPROGESTERone (DEPO-PROVERA) 150 mg/mL Inject 1 mL intramuscularly every 12 weeks. - buPROPion XL (WELLBUTRIN XL) 150 mg 24 hr tablet Take 300 mg by mouth once daily. Facility-Administered Medications as of 10/17/2023 - medroxyPROGESTERone 150 mg injection (DEPO-PROVERA) Problem List As Of Date 10/17/2023 Noted Resolved Moderate alcohol use disorder (HCC) [F10.20] 10/17/2023 Generalized anxiety disorder [F41.1] 10/17/2023 Major depressive disorder, recurrent episode, m*10/17/2023 Encounter Status:Closed by LUCY KATZ on 10/17/23 Normal [facility] ETHYL GLUCUR UR CONFon 10-17 ETHYL GLUCUR UR CONF 8121 ng/mL Normal [facility] Comment on above: Order Comment: Speci men Type: URINE SPECIMENOrdering Facility: [facility] Address: [address] [place] [address] Performed By: #### U EGQNT ####[facility] [employer] [id number] [place] [address] ETHYL SULFATE UR CONF 3484 ng/mL Normal [facility] Comment on above: Order Comment: Speci men Type: URINE SPECIMENOrdering Facility: [facility] Address: [address] [place] [address] Result Comment: INTE RPRETIVE INFORMATION: Ethyl Glucuronide and Ethyl Sulfate, Urine Quantitative Ethyl glucuronide (EtG) and Ethyl Sulfate (EtS) are direct metabolites of ethanol. EtG and EtS can be detected up to 80 hours in urine after ethanol ingestion and the presence of both metabolites can be used as markers for recent alcohol use. The presence of EtG, alone in urine, is not a unique marker of ethanol ingestion. False positive EtG results can occur from microbial formation or from fermentation and false negative EtG results can occur from bacterial degradation. The analytical measurement range is 100-10,000 ng/mL. This test was developed and its performance characteristics determined by [email or web address]. It has not been cleared or approved by the [place] Food and Drug Administration. This test was performed in a CLIA certified laboratory and is intended for clinical purposes. Performed By: [email or web address] [address] [place] [address] Rough Rib Grader: Bill Harkins MD, PhD CLIA Number: [id number] Performed By: #### U EGQNT ####[facility] [id number] [place] [address] ETHYL GLUCURONIDE UR SCRon 0 10-17-2023 Ethyl glucuronide Screen Ql (U) Sent for confirmation Abnormal Negative [facility] Comment on above: Order Comment: Speci men Type: URINE SPECIMEN [facility] Address: [address] [place] [address] Result Comment: Scre en cutoff concentration: 500 ng/mL ethyl glucuronide. Immunoassay screen only. Cross reactivity with other substances can occur with immunoassay screening. Detection of any drug(s) in this panel is presumptive only. These tests are for medical purposes only and should not be used for compliance monitoring, legal, or forensic use. This test was developed and its performance characteristics determined by [facility] Path[facility] Laboratory Medicine [place] ([facility]). It has not been cleared or approved by the FDA. [facility] is regulated under CLIA as qualified to perform high-complexity testing. This test is used for clinical purposes. It should not be regarded as investigational or for research. Performed By: #### U EGLUC #### [facility] CLIA [id number] [address] [place] [address] [place] PAIN PANEL, UR QUANTon 10-17 0-Vjcgucwliv-0,5-Dime thyl-3,3-Diphenylpyrr olidine (EDDP) Confirm (U) [Mass/Vol] <6 Normal <6 [facility] Comment on above: Order Comment: Speci men Type: URINE SPECIMEN [facility] Address: [address] [place] [address] Result Comment: EDDP is a metabolite of methadone. Performed By: #### L [id number] #### [facility] CLIA [id number] [address] [place] [address] [place] 6-Monoacetylmorphine (6-YUDELKA) (U) [Mass/Vol] <5 Normal <5 [facility] Comment on above: Order Comment: Speci men Type: URINE SPECIMEN [facility] Address: [address] [place] [address] Result Comment: 6-MA M (6-monoacetylmorphine, also known as 6-acetylmorphine) is a unique metabolite of heroin. Presence of 6-YUDELKA indicates use of heroin. 6-YUDELKA is further metabolized to morphine and absence of 6-YUDELKA does not rule out the use of heroin. Performed By: #### L [id number] #### [facility] CLIA [id number] [address] [place] [address] [place] Amphetamine Confirm (U) [Mass/Vol] <5 Normal <5 [facility] Comment on above: Order Comment: Speci men Type: URINE SPECIMEN [facility] Address: [address] [place] [address] Performed By: #### L [id number] #### [facility] CLIA [id number] [address] [place] [address] [place] Benzoylecgonine Confirm (U) [Mass/Vol] <24 Normal <24 [facility] Comment on above: Order Comment: Speci men Type: URINE SPECIMEN [facility] Address: [address] [place] [address] Result Comment: Roberto oylecgonine is a metabolite of cocaine. Performed By: #### L [id number] #### [facility] CLIA [id number] [address] [place] [address] [place] Buprenorphine (U) [Mass/Vol] <20 Normal <20 [facility] Comment on above: Order Comment: Speci men Type: URINE SPECIMEN [facility] Address: [address] [place] [address] Performed By: #### L [id number] #### [facility] CLIA [id number] [address] [place] [address] [place] Cannabinoids Confirm (U) [Mass/Vol] <16 Normal <16 [facility] Comment on above: Order Comment: Speci men Type: URINE SPECIMEN [facility] Address: [address] [place] [address] Result Comment: Tetr ahydrocannabinol carboxylic acid (THCA) is a metabolite of bvfxe-6-mgikgnfyenjueesvbmir which is the main active component of marijuana. Performed By: #### L [id number] #### [facility] CLIA [id number] [address] [place] [address] [place] [facility] Codeine Confirm (U) [Mass/Vol] <11 Normal <11 [facility] Comment on above: Order Comment: Speci men Type: URINE SPECIMEN [facility] Address: [address] [place] [address] Performed By: #### L [id number] #### [facility] CLIA [id number] [address] [place] [address] [place] Dihydrocodeine Confirm (U) [Mass/Vol] <5 Normal <5 [facility] Comment on above: Order Comment: Speci men Type: URINE SPECIMEN [facility] Address: [address] [place] [address] Performed By: #### L [id number] #### [facility] CLIA [id number] 77 [place] [address] [place] fentaNYL Confirm (U) [Mass/Vol] <6 Normal <6 [facility] Comment on above: Order Comment: Speci men Type: URINE SPECIMEN Ordering Facility: [facility] Address: [address] [place] [address] Performed By: #### L [id number] #### [facility] CLIA [id number] [address] [place] [address] [place] HYDROcodone Confirm (U) [Mass/Vol] <8 Normal <8 [facility] Comment on above: Order Comment: Speci men Type: URINE SPECIMEN Ordering Facility: [facility] Address: [address] [place] [address] Result Comment: Hydr ocodone is a metabolite of dihydrocodeine. Performed By: #### L [id number] #### [facility] CLIA [id number] [address] [place] [address] [place] HYDROmorphone Confirm (U) [Mass/Vol] <5 Normal <5 [facility] Comment on above: Order Comment: Speci men Type: URINE SPECIMEN Ordering Facility: [facility] Address: [address] [place] [address] Result Comment: Hydr omorphone is a metabolite of hydrocodone. Performed By: #### L [id number] #### [facility] CLIA [id number] [address] [place] [address] [place] Methadone Confirm (U) [Mass/Vol] <16 Normal <16 [facility] Comment on above: Order Comment: Speci men Type: URINE SPECIMEN Ordering Facility: [facility] Address: [address] [place] [address] Performed By: #### L [id number] #### [facility] CLIA [id number] [address] [place] [address] [place] Methamphetamine Confirm (U) [Mass/Vol] <8 Normal <8 [facility] Comment on above: Order Comment: Speci men Type: URINE SPECIMEN Ordering Facility: [facility] Address: [address] [place] [address] Performed By: #### L [id number] #### [facility] CLIA [id number] [address] [place] [address] [place] Morphine Confirm (U) [Mass/Vol] <10 Normal <10 [facility] Comment on above: Order Comment: Speci men Type: URINE SPECIMEN Ordering Facility: [facility] Address: [address] [place] [address] Result Comment: Morp sloane is a metabolite of codeine and heroin. Performed By: #### L [id number] #### [facility] CLIA [id number] [address] [place] [address] [place] Norbuprenorphine (U) [Mass/Vol] <20 Normal <20 [facility] Comment on above: Order Comment: Speci men Type: URINE SPECIMEN Ordering Facility: [facility] Address: [address] [place], [place] [id number] Result Comment: Norb uprenorphine is the primary active metabolite of buprenorphine. Performed By: #### L [id number] #### [facility] CLIA [id number] [address] [place] [address] [place] Norfentanyl Confirm (U) [Mass/Vol] <6 Normal <6 [facility] Comment on above: Order Comment: Speci men Type: URINE SPECIMEN Ordering Facility: [facility] Address: [address] [place] [address] Result Comment: Norf entanyl is a metabolite of fentanyl. Performed By: #### L [id number] #### [facility] CLIA [id number] [address] [place] [address] [place] Nortramadol (U) [Mass/Vol] <20 Normal <20 [facility] Comment on above: Order Comment: Speci men Type: URINE SPECIMEN Ordering Facility: [facility] Address: [address] [place] [address] Result Comment: Desm ethyltramadol is a metabolite of tramadol. Performed By: #### L [id number] #### [facility] CLIA [id number] [address] [place] [address] [place] NOTE,UR PAIN CORREA Normal [facility] Comment on above: Order Comment: Speci men Type: URINE SPECIMEN Ordering Facility: [facility] Address: [address] [place] [address] Result Comment: This test is for medical use only. This test was developed and its performance characteristics determined by [facility]'s Celestino JSarita [facility]ology [facility] Laboratory Medicine Lydia ([facility]). It has not been cleared or approved by the FDA. [facility] is regulated under CLIA as qualified to perform high-complexity testing. This test is used for clinical purposes. It should not be regarded as investigational or for research. Performed By: #### L [id number] #### [facility] CLIA [id number] [id number] [place] oxyCODONE Confirm (U) [Mass/Vol] <10 Normal <10 [facility] Comment on above: Order Comment: Speci men Type: URINE SPECIMEN Ordering Facility: [facility] Address: [address] [place] [address] Performed By: #### L [id number] #### [facility] CLIA [id number] [address] [place] [address] [place] oxyMORphone Confirm (U) [Mass/Vol] <5 Normal <5 [facility] Comment on above: Order Comment: Speci men Type: URINE SPECIMEN Ordering Facility: [facility] Address: [address] [place] [address] Result Comment: Oxym orphone is a metabolite of oxycodone. Performed By: #### L [id number] #### [facility] CLIA [id number] [address] [place] [address] [place] traMADol Confirm (U) [Mass/Vol] <25 Normal <25 [facility] Comment on above: Order Comment: Speci men Type: URINE SPECIMEN Ordering Facility: [facility] Address: [address] [place] [address] Performed By: #### L [id number] #### [facility] CLIA [id number] [address] [place] [address] [place] SPECIMEN VALIDITY, URINEon 0 - CHROMATE,URINE <10 Normal <50 [facility] Comment on above: Order Comment: Speci men Type: URINE SPECIMEN Ordering Facility: [facility] Address: [address] [place] [address] Performed By: #### L [id number] #### [facility] CLIA [id number] [address] [place] [address] [place] CREATININE,URINE 45.5 mg/dL Normal 20.0-300.0 [facility] Comment on above: Order Comment: Speci men Type: URINE SPECIMEN Ordering Facility: [facility] Address: [address] [place] [address] Performed By: #### L [id number] #### [facility] CLIA [id number] [address] [place] [address] [place] NITRITES,URINE <50 Normal <500 [facility] Comment on above: Order Comment: Speci men Type: URINE SPECIMEN Ordering Facility: [facility] Address: [address] [place] [address] Performed By: #### L [id number] #### [facility] CLIA [id number] [address] [place] [address] [place] OXIDANTS,URINE <38 Normal <200 [facility] Comment on above: Order Comment: Speci men Type: URINE SPECIMEN Ordering Facility: [facility] Address: [address] [place] [address] Performed By: #### L [id number] #### [facility] CLIA [id number] [address] [place] [address] [place] pH (U) 6.1 [pH] Normal 4.5-8.0 [facility] Comment on above: Order Comment: Speci men Type: URINE SPECIMEN Ordering Facility: [facility] Address: [address] [place] [address] Performed By: #### L [id number] #### [facility] CLIA [id number] [address] [place] [address] [place] SPEC GRAVITY,UR 1.004 Normal 1.003-1.035 [facility] Comment on above: Order Comment: Speci men Type: URINE SPECIMEN Ordering Facility: [facility] Address: [address] [place] [address] Performed By: #### L [id number] #### [facility] CLIA [id number] [address] [place] [address] [place] SPECIMEN VALIDITY QUALITY Specimen quality results within acceptable limits Normal [facility] Comment on above: Order Comment: Speci men Type: URINE SPECIMEN Ordering Facility: [facility] Address: [address] [place] [address] Performed By: #### L [id number] #### [facility] CLIA [id number] [address] [facility] [id number] [place] [address] OF [place] TOX SCREEN ROUT URon 024 Amphetamines Confirm (U) [Mass/Vol] Negative Normal Negative [facility] Comment on above: Order Comment: Speci men Type: URINE SPECIMEN Ordering Facility: [facility] Address: [address] [place] [address] Result Comment: Cuto ff threshold at 1000 ng/mL. Performed By: #### U TOX2 #### [facility] CLIA [id number] [address] OF [place] BARBITURATES, URINE Negative Normal Negative [facility] Comment on above: Order Comment: Speci men Type: URINE SPECIMEN Ordering Facility: [facility] Address: [address] [place] [address] Result Comment: Cuto ff threshold at 200 ng/mL. Performed By: #### U TOX2 #### [facility] CLIA [id number] [address] [place] [address] [place] BENZODIAZEPINES, UR Negative Normal Negative [facility] Comment on above: Order Comment: Speci men Type: URINE SPECIMEN Ordering Facility: [facility] Address: [address] [place] [address] Result Comment: Cuto ff threshold at 200 ng/mL. Performed By: #### U TOX2 #### [facility] CLIA [id number] [address] [place] [address] [place] Cannabinoids Screen Ql (U) Negative Normal Negative [facility] Comment on above: Order Comment: Speci men Type: URINE SPECIMEN Ordering Facility: [facility] Address: [address] [place] [address] Result Comment: Cuto ff threshold at 50 ng/mL. Performed By: #### U TOX2 #### [facility] CLIA [id number] [address] [place] Cocaine Ql (U) Negative Normal Negative [facility] Comment on above: Order Comment: Speci men Type: URINE SPECIMEN Ordering Facility: [facility] Address: [address] [place] [address] Result Comment: Cuto ff threshold at 300 ng/mL. Performed By: #### U TOX2 #### [facility] CLIA [id number] [address] OF [place] Ethanol (U) [Mass/Vol] <11 Normal <11 [facility] Comment on above: Order Comment: Speci men Type: URINE SPECIMEN Ordering Facility: [facility] Address: [address] [place] [address] Performed By: #### U TOX2 #### [facility] CLIA [id number] [address] Opiates Screen Ql (U) Negative Normal Negative [facility] Comment on above: Order Comment: Speci men Type: URINE SPECIMEN Ordering Facility: [facility] Address: [address] [place] [address] Result Comment: Cuto ff threshold at 300 ng/mL. Performed By: #### U TOX2 #### [facility] CLIA [id number] [address] oxyCODONE cutoff Screen (U) [Mass/Vol] Negative Normal Negative [facility] Comment on above: Order Comment: Speci men Type: URINE SPECIMEN Ordering Facility: [facility] Address: [address] [place] [address] Result Comment: Cuto ff threshold at 100 ng/mL. Performed By: #### U TOX2 #### [facility] CLIA [id number] [address] OF [place] Phencyclidine Ql (U) Negative Normal Negative [facility] Comment on above: Order Comment: Speci men Type: URINE SPECIMEN Ordering Facility: [facility] Address: [address] [place] [address] Result Comment: Cuto ff threshold at 25 ng/mL. Performed By: #### U TOX2 #### [facility] CLIA [id number] [address] [place] [address] [place] HPV W/GENOTYPE THIN PREPon 1 10-16-2022 HPV 16 Ag Ql (Unsp spec) Negative Negative for HPV DNA high risk type 16 by PCR [facility] HPV 18 Ag Ql (Unsp spec) Negative Negative for HPV DNA high risk type 18 by PCR [facility] HPV 31+33+35+39+45+51+52+ 56+58+59+66+68 DNA JAMEY+probe Ql (Cvx) Negative for HPV DNA high risk types: 31,33,35,39,45,51,52,56, 58,59,66,68 by PCR. Negative for HPV DNA high risk types: 31,33,35,39, 45,51,52,56, 58,59,66,68 by PCR. [facility] CERVICAL SP COMPLETE, 4 OR 5 VIEWSon 08-04-2020 CERVICAL SP COMPLETE, 4 OR 5 VIEWS [place] [address] Patient: OREN TOBIN Phone#: : 1980 Age: 39 Gender: F Pt. Type: Out Account: [id number] Location: [facility] Ordering: GURINDER MONSALVE Exam Date: 08/04/2020/15:20 Family Phys: GURINDER GUERRERO Charge Code: [id number] Physician: Meagher Order #: [id number] [facility] Dose#: PROCEDURE: X-RAY CERVICAL SPINE W/ AP, LATERAL, ODONTOID, AND OLBIQUES VIEWS COMPARISON: None. INDICATIONS: Numbness to Left Upper Extremity. FINDINGS: BONES: There is straightening of the normal cervical lordosis. There is no evidence of acute fracture or subluxation. The foramina patent. DISC SPACES: Normal. No significant disc height narrowing, subluxation, or endplate abnormality. PARASPINOUS: Negative. No paraspinous abnormality is seen. OTHER: Negative. CONCLUSION: No acute disease. There is straightening of the normal cervical lordosis. Dictated by: Marisel Rodriguez MD on 08/04/2020 at 15:40 Approved by: Marisel Rodriguez MD on 08/04/2020 at 15:41 Normal [facility] CHEST 2 VIEWSon 08-04-2020 CHEST 2 VIEWS [place] [address] Patient: OREN TOBINSarita Phone#: : 1980 Age: 39 Gender: F Pt. Type: Out Account: [id number] Location: 052 Ordering: GURINDER MONSALVE Exam Date: 08/04/2020/15:13 Family Phys: GURINDER GUERRERO Charge Code: [id number] Physician: Meagher Order #: [id number] DLP Dose#: PROCEDURE: X-RAY CHEST 2 VIEWS COMPARISON: None. INDICATIONS: Cough. FINDINGS: LUNGS: Normal. No significant pulmonary parenchymal abnormalities. VASCULATURE: Normal. Unremarkable pulmonary vasculature. CARDIAC: Normal. No cardiac silhouette abnormality or cardiomegaly. MEDIASTINUM: Normal. No visible mass or adenopathy. PLEURA: Normal. No effusion or pleural thickening. BONES: Normal. No fracture or visible bony lesion. OTHER: Negative. CONCLUSION: No acute disease. Dictated by: Marisel Rodriguez MD on 08/04/2020 at 15:38 Approved by: Marisel Rodriguez MD on 08/04/2020 at 15:39 Normal [facility] DORSAL SPINE 2 VIEWSon 08-04 DORSAL SPINE 2 VIEWS [place] [address] Patient: MAHADOREN Phone#: : 1980 Age: 39 Gender: F Pt. Type: Out Account: [id number] Location: 052 Ordering: GURINDER MONSALVE Exam Date: 08/04/2020/15:23 Family Phys: GURINDER Keita YOLANDA Charge Code: [id number] Physician: Meagher Order #: [id number] DLP Dose#: PROCEDURE: X-RAY DORSAL SPINE 2 VIEWS COMPARISON: None. INDICATIONS: Numbness to Left Upper Extremity. FINDINGS: BONES: Mild thoracolumbar curvature to the right. DISC SPACES: Normal. No significant disc height narrowing, subluxation, or endplate abnormality. PARASPINOUS: Negative. No paraspinous abnormality is seen. OTHER: Negative. CONCLUSION: No acute disease. Dictated by: Marisel Rodriguez MD on 08/04/2020 at 15:39 Approved by: Marisel Rodriguez MD on 08/04/2020 at 15:40 Normal [facility] NOVEL CORONAVIRUS NASOPHARYN GEAL - [facility] SPECIMEN ONLYon 04-26-2020 SARS-COV-2 NOT DETECTED Normal NOT DETECTED [facility] Comment on above: Order Comment: Viral transport media - Collection must be done while wearing N-95 mask, eye protection, gown and gloves. Please label ALL specimens as "2019-nCoV rule out" and deliver by hand. This test was performed using real time PCR and has been approved for the qualitative detection of SARS-CoV-2 nucleic acid. The test has been authorized by the FDA under an emergency use authorization for use by authorized laboratories. Result Comment: Nega tive results do not preclude SARS-CoV-2 infection and should not be used as the sole basis for treatment or other patient management decisions. Optimum specimen types and timing for peak viral levels during infections caused by SARS-CoV-2 has not been determined. The possibility of a false negative result should especially be considered if the patient's recent exposures or clinical presentation suggest that SARS-CoV-2 infection is probable, and diagnostic tests for other causes of illness (e.g., other respiratory illness) are negative. Collection of a new specimen and re-testing may be necessary if the patient is critically ill or clinically deteriorating. Performed By: #### L [id number] #### [facility] ([facility]) [address] [place] [address] Vital Signs Date Time Vital Sign Value Performing Clinician Peggy white 08-13-2023 10:15-0500 Body height 152.4 cm Mariluz Rhodes APRN.CNM Work Phone: [facility] 08-13-2023 10:15-0500 Body weight 70.85 kg Mariluz Rhodes APRN.CNM Work Phone: [facility] 08-13-2023 10:15-0500 Diastolic blood pressure 72 mm[Hg] Mariluz Carmelo SCHULTE.CNaKren Work Phone: [facility] 08-13-2023 10:15-0500 Systolic blood pressure 116 mm[Hg] Mariluz Carmelo SCHULTE.CNKaren Work Phone: [facility] Encounters Encounter Date Encounter Type Care Provider Facility Start: 06-20-2025 End: 06-21-2025 ambulatory ERICA L AL Facility:[facility] Start: 05-26-2025 End: 05-26-2025 ambulatory Laura [place] Facility:[facility] Start: 02-23-2025 End: 02-23-2025 ambulatory Laura Saira Facility:[facility] Start: 12-22-2024 End: 12-22-2024 ambulatory Laura [place] Facility:[facility] Start: 10-23-2024 End: 10-23-2024 ambulatory Laura Saira Facility:[facility] Start: 09-12-2024 End: 09-12-2024 ambulatory ERICA L AL Facility:[facility] Start: 08-29-2024 End: 08-29-2024 ambulatory CAYLA MAS Facility:[facility] Start: 04-01-2024 ambulatory TRAVIS TALLEY Facility:[facility] Start: 02-13-2024 ambulatory ERICA L AL Facil ity:[facility] Start: 01-30-2024 ambulatory ERICA L AL Facil ity:[facility] Start: 01-23-2024 ambulatory ERICA L AL Facil ity:[facility] Start: 01-09-2024 ambulatory ERICA L AL Facil ity:[facility] Start: 01-02-2024 ambulatory ERICA L AL Facil ity:[facility] Start: 12-19-2023 ambulatory ERICA L AL Facil ity:[facility] Start: 12-12-2023 ambulatory ERICA L AL Facil ity:[facility] Start: 12-05-2023 ambulatory MATILDA BARAKAT Facility :[facility] Start: 11-29-2023 ambulatory MATILDA BARAKAT Facility :[facility] Start: 11-27-2023 ambulatory ERICA L AL Facil ity:[facility] Start: 11-26-2023 ambulatory ERICA L AL Facil ity:[facility] Start: 2023 ambulatory ERICA L AL Facil ity:[facility] Start: 11-20-2023 End: 11-20-2023 ambulatory ERICA L AL Facility:[facility] Start: 11-19-2023 ambulatory ERICA L AL Facil ity:[facility] Start: 11-15-2023 ambulatory ERICA L AL Facil ity:[facility] Start: 11-13-2023 ambulatory ERICA L AL Facil ity:[facility] Start: 11-12-2023 ambulatory ERICA L AL Facil ity:[facility] Start: 11-08-2023 ambulatory ERICA L AL Facil ity:[facility] Start: 11-06-2023 ambulatory ERICA L AL Facil ity:[facility] Start: 11-05-2023 ambulatory ERICA L AL Facil ity:[facility] Start: 11-01-2023 ambulatory ERICA L AL Facil ity:[facility] Start: 10-30-2023 ambulatory ERICA L AL Facil ity:[facility] Start: 10-29-2023 ambulatory ERICA L AL Facil ity:[facility] Start: 10-25-2023 ambulatory ERICA L AL Facil ity:[facility] Start: 10-23-2023 ambulatory MATILDA BARAKAT Facility :[facility] Start: 10-23-2023 End: 10-23-2023 ambulatory LUCY STERLING Facility:[facility] Start: 10-17-2023 End: 10-17-2023 ambulatory ERICA L AL Facility:[facility] Start: 08-13-2023 End: 08-13-2023 Patient encounter procedure Mariluz Rhodes APRN.CNM Work Phone: OB/Gynecology Comment on above: Encounter for gyneco logical examination (general) (routine) with abnormal findings (Primary Dx); Screening for cervical cancer; Encounter for screening for human papillomavirus (HPV); Encounter for screening mammogram for breast cancer; Dense breast tissue Start: 08-13-2023 End: 08-13-2023 Patient encounter status Mariluz Rhodes APRN.CNM Work Phone: [facility] Start: 08-04-2020 End: 08-04-2020 [facility] Date Procedure Procedure Detail Performing Clinician Start: 08-13-2023 Iadna human papillom avirus high-risk types Mariluz Rhodes APRN.CNM Work Phone: Plan of Treatment Date Care Activity Detail Author Start: 08-13-2028 HPV Testing HPV Testing [facility] Start: 2022 Mammography Mammogram Screening [facility] Start: 09-17-2022 Depression Assessment Depression Ass essment [facility] Start: 11-23-2003 Pap Testing Pap Testing [facility] Start: 2001 Urine microalbumin profile DTaP,Tdap,Td Vaccine (1 - Tdap) [facility] Start: 2000 Hepatitis C Screening Hepatitis C Sc reening [facility] Start: 2000 HIV Screening HIV Screening [facility] Start: 05-25-1983 Covid-19 Vaccine (#1) Covid-19 Vacci ne (#1) [facility] Start: 1982 Hepatitis B Vaccine (1 of 3 - 3-dose series) Hepatitis B Vaccine (1 of 3 - 3-dose series) [facility] End: 09-11-2024 YUDELKA SCREENING W BENJAMÍN YUDELKA SCREENING W BENJAMÍN Radiology Routine Encounter for screening mammogram for breast cancer Dense breast tissue 1 Occurrences starting 08/13/2023 until 09/11/2024 [facility] Work Phone: Comment on above: 1 Occurrences starti ng 08/13/2023 until 09/11/2024 PAP TEST PAP TEST Lab Rou [facility] Encounter for gynecological examination (general) (routine) with abnormal findings Screening for cervical cancer Encounter for screening for human papillomavirus (HPV) 08/13/2023 11:10 AM EST [facility] Work Phone: [facility] c Immunizations Immunization Date Immunization Notes Care Provider Fa cilianna 06-20-2023 influenza virus vacc ine, unspecified formulation Mariluz Rhodes APRN.CNM Work Phone: [facility] Payers Date Payer Category Payer Self-pay 2023 Unknown MMO [employer] PPO [id number] 2023-Present [phone] [address] [place] [address] PPO [id number] 2023 Unknown [id number] 1980 Unknown [id number] Unknown [id number] Unknown [id number] Unknown [id number] Unknown [id number] Social History Date Type Detail Facility Start: 08-13-2023 Tobacco smoking stat us AZIS Never smoked tobacco [facility] Start: 08-13-2023 Tobacco use and exposure Smokeless t obacco non-user [facility] Start: 08-13-2023 Alcohol intake Current drinke r of alcohol (finding) [facility] Start: 08-13-2023 End: 08-14-2023 History of Social function [facility] Start: 08-13-2023 End: 08-14-2023 Tobacco use panel [facility] National Score (1-10 0), lower number is lower risk 72 [facility] Start: 08-13-2023 Alcohol Comment [facility] Start: 1980 Sex Assigned At Not on file C [facility] Clinical Notes 08-13-2023 to 06-20-2025 Patient InstructionsMariluz Rhodes APRN.CNM - 08/13/2023 9:56 AM EST Note Date & Type Note Facility 06-20-2025 Note HNO ID: [id number] Author: EDDIE GREY APRN.IT HELP DESK TECHNICIAN Service: ? Author Type: Nurse Practitioner Type: Progress Notes Filed: 06/20/2025 14:45 Note Text: URGENT CARE JOVANNA Tobin is a 44 year old female. Patient presents with: Chest Congestion: dry cough x 10 days, increased x 2 days HPI The patient is a 44-year-old female presenting with sinus congestion, dry cough, and wheezing. Sinus Congestion, Cough, and Wheezing: - Sinus congestion with minimal pressure. - Dry cough and wheezing, particularly at night. - Denies feeling like it's pneumonia; attributes symptoms to allergies. - Previously had similar symptoms when owning a rabbit. - Typically uses prednisone and an inhaler for relief. - Tried Claritin without relief. - Denies history of COPD or asthma. - Denies any allergies. Review of Systems Ears/Nose/Mouth/Throat: (+) nasal congestion, (+) sinus pressure Respiratory: (+) dry cough, (+) wheezing Objective BP 110/64 Pulse 110 Temp 36.7 ?C (98.1 ?F) Resp 16 Wt 56 kg (123 lb 7.3 oz) LMP (LMP Unknown) SpO2 98% BMI 24.11 kg/m? Physical Exam Constitutional: Appearance: Normal appearance. Pulmonary: Effort: Pulmonary effort is normal. Neurological: Mental Status: She is alert. General: No acute distress. HEENT: Ears and throat normal. Resp: Lungs clear to auscultation bilaterally, respirations regular. { 1. Rhinosinusitis (J32.9) - Acute rhinosinusitis with significant postnasal drainage, dry cough, and mild wheezing; lungs clear on exam. - Start doxycycline BID for 7 days. - Start prednisone 40 mg daily for 5 days. - Start albuterol inhaler; patient expressed understanding of inhaler use. and Recording using [employer] software for draft documentation of the visit was discussed with the patient/authorized veterans contact representative; all questions welcomed and answered. Patient/authorized veterans contact representative agreed to proceed History and Record Review External record(s) reviewed: no prior records. Disposition The patient was discharged. Procedures [facility] 09-12-2024 Note HNO ID: [id number] Author: MARILUZ GALEANO APRN.IT HELP DESK TECHNICIAN Service: ? Author Type: Nurse Practitioner Type: Progress Notes Filed: 09/12/2024 13:08 Note Text: This note was created using [employer]. Subjective Oren Tobin is a 43 year old female. 43 year old female with PMH anxiety and depression presents for illness. Acute onset ten days ago +sinus pressure +sinus congestion +post nasal Mild cough Denies fever or chills Denies dyspnea Denies N/V/D Denies skin rash or lesions. Denies tobacco usage Denies recent ATB usage +exposure to ill contacts The history is provided by the patient. No biblical languages professor was used. Cough This is a new problem. The current episode started more than 1 week ago. The problem occurs constantly. The problem has been gradually worsening. The cough is Non-productive. There has been no fever. Associated symptoms include ear congestion, headaches and rhinorrhea. Pertinent negatives include no chest pain, no chills, no sweats, no weight loss, no ear pain, no sore throat, no myalgias, no shortness of breath, no wheezing and no eye redness. She has tried nothing for the symptoms. The treatment provided no relief. She is not a smoker. Her past medical history does not include bronchitis, pneumonia, bronchiectasis, COPD, emphysema or asthma. PAST MEDICAL HISTORY Diagnosis Date Tachycardia No past surgical history on file. ALLERGIES Patient has no known allergies. MEDICATIONS Phentermine HCl 37.5 mg tablet Take 1 tablet by mouth once daily for 90 days. BMI 28.47 metoprolol succinate ER (TOPROL XL) 50 mg 24 hr tablet Take 1 tablet by mouth once daily. buPROPion XL (WELLBUTRIN XL) 300 mg 24 hr tablet 300 mg once daily. escitalopram oxalate (LEXAPRO) 10 mg tablet 10 mg. doxycycline (VIBRA-TABS) 100 mg tablet Take 1 tablet by mouth two times a day for 7 days. FAMILY HISTORY Problem Relation Age of Onset Colon Cancer Maternal Grandmother had it twice Social History Tobacco Use Smoking status: Some Days Smokeless tobacco: Never Tobacco comments: Currently vaping daily with nicotine Substance Use Topics Alcohol use: Yes Comment: occasional Drug use: Not Currently Types: Cocaine Comment: 15 years ago Review of Systems Constitutional: Positive for fatigue. Negative for chills, fever and weight loss. HENT: Positive for congestion, postnasal drip, rhinorrhea, sinus pressure and sinus pain. Negative for ear pain and sore throat. Eyes: Negative for pain, discharge, redness and itching. Respiratory: Positive for cough. Negative for shortness of breath and wheezing. Cardiovascular: Negative for chest pain. Gastrointestinal: Negative for abdominal pain, diarrhea, nausea and vomiting. Musculoskeletal: Negative for arthralgias, back pain and myalgias. Skin: Negative for color change, pallor and rash. Allergic/Immunologic: Negative for environmental allergies, food allergies and immunocompromised state. Neurological: Positive for headaches. Negative for dizziness and facial asymmetry. Hematological: Positive for adenopathy. Does not bruise/bleed easily. Psychiatric/Behavioral: Negative for agitation and behavioral problems. Objective BP 110/68 Pulse 102 Temp 37 ?C (98.6 ?F) Resp 21 Wt 59.3 kg (130 lb 11.7 oz) LMP (LMP Unknown) SpO2 99% BMI 25.53 kg/m? Physical Exam Vitals and nursing note reviewed. Constitutional: General: She is not in acute distress. Appearance: Normal appearance. She is normal weight. She is not ill-appearing, toxic-appearing or diaphoretic. HENT: Head: Normocephalic and atraumatic. Comments: +frontal sinus pressure +maxillary sinus pressure Right Ear: Ear canal and external ear normal. Left Ear: Ear canal and external ear normal. Nose: Congestion present. No rhinorrhea. Mouth/Throat: Mouth: Mucous membranes are moist. Pharynx: Posterior oropharyngeal erythema present. No oropharyngeal exudate. Eyes: General: Right eye: No discharge. Left eye: No discharge. Extraocular Movements: Extraocular movements intact. Conjunctiva/sclera: Conjunctivae normal. Pupils: Pupils are equal, round, and reactive to light. Cardiovascular: Rate and Rhythm: Normal rate and regular rhythm. Pulses: Normal pulses. Heart sounds: Normal heart sounds. No murmur heard. No friction rub. Pulmonary: Effort: Pulmonary effort is normal. No respiratory distress. Breath sounds: Normal breath sounds. No stridor. No wheezing, rhonchi or rales. Chest: Chest wall: No tenderness. Abdominal: General: Abdomen is flat. There is no distension. Palpations: Abdomen is soft. There is no mass. Tenderness: There is no abdominal tenderness. There is no right CVA tenderness, left CVA tenderness, guarding or rebound. Hernia: No hernia is present. Musculoskeletal: General: No swelling, tenderness, deformity or signs of injury. Normal range of motion. Cervical back: Normal range of (more content not included)... [facility] 08-29-2024 Note HNO ID: [id number] Author: CAYLA MAS APRN.IT HELP DESK TECHNICIAN Service: ? Author Type: Nurse Practitioner Type: Progress Notes Filed: 08/29/2024 10:41 Note Text: Chief Complaint Patient presents with: Weight Loss: Adipex HPI Oren Tobin is a 43 year old female who presents here today for Above Complaints. Weight-requesting refill on her Adipex Diet-cutting back on portions, drinking water Exercise-is very busy at work, running all over the place Past medical history, appointments, medications, allergies reviewed. Previous Medical History PAST MEDICAL HISTORY Diagnosis Date Tachycardia Previous Surgical History History reviewed. No pertinent surgical history. Family History FAMILY HISTORY Problem Relation Age of Onset Colon Cancer Maternal Grandmother had it twice Patient Allergies ALLERGIES No Known Allergies Current Medications Current Outpatient Medications on File Prior to Visit Medication Sig metoprolol succinate ER (TOPROL XL) 50 mg 24 hr tablet Take 1 tablet by mouth once daily. buPROPion XL (WELLBUTRIN XL) 300 mg 24 hr tablet 300 mg once daily. escitalopram oxalate (LEXAPRO) 10 mg tablet 10 mg. medroxyPROGESTERone (DEPO-PROVERA) 150 mg/mL Inject 1 mL intramuscularly every 12 weeks. benzonatate (TESSALON PERLE) 100 mg capsule Take 1 capsule by mouth three times a day as needed. metFORMIN (GLUCOPHAGE) 500 mg tablet Take 1 tablet by mouth two times a day with meals. No current facility-administered medications on file prior to visit. Social History Social History Tobacco Use Smoking status: Some Days Smokeless tobacco: Never Tobacco comments: Currently vaping daily with nicotine Substance Use Topics Alcohol use: Yes Comment: occasional Drug use: Not Currently Types: Cocaine Comment: 15 years ago Review of Symptoms REVIEW OF SYSTEMS See HPI, otherwise negative EXAM: BP 126/84 (BP Site: Left Arm, BP Position: Sitting, BP Cuff Size: Regular Adult) Pulse (!) 126 Resp 16 Wt 57.8 kg (127 lb 6.4 oz) LMP (LMP Unknown) SpO2 100% BMI 24.88 kg/m? General Appearance: Well appearing, alert, in no acute distress, well-hydrated, well nourished.. Lungs: Lungs clear to auscultation. No wheezing, rhonchi, rales.. Heart: RRR without murmur, gallop, or rubs. No ectopy. Psychiatric: pleasant, cooperative. Health Maintenance List Pneumococcal Vaccine(1 of 2 - PCV) Never done Hepatitis C Screening Never done HIV Screening Never done DTaP,Tdap,Td Vaccine(1 - Tdap) Never done Hepatitis B Vaccine(1 of 3 - 19+ 3-dose series) Never done Influenza Vaccine(1) due on 03/16/2025 Covid-19 Vaccine( - season) due on 08/29/2025 Mammogram Screening due on 06/13/2025 Cervical Cancer Screening due on 08/13/2028 HPV Vaccine Aged Out Data reviewed Previous records, office notes, PDMP report PDMP website checked and validated. All prescriptions have been APPROPRIATELY filled. No suspicious activity was identified. 08/29/2024 by Cayla Mas CNP. ASSESSMENT/PLAN: 1. Overweight with body mass index (BMI) of 28 to 28.9 in adult - ICD9: 278.02, V85.24, ICD10: E66.3, Z68.28 She can do 3 more months of the Adipex and then she will either need to d/c the medication or cut back to a 1/2 tablet daily just to help maintain her weight. - PHENTERMINE 37.5 MG TABLET Cayla Mas APRN.IT HELP DESK TECHNICIAN [facility] 11-29-2023 Note HNO ID: [id number] Author: MATILDA BARAKAT LSW Service: DAILY INTENSIVE OP Author Type: Therapist Type: Progress Notes Filed: 11/29/2023 21:34 Note Text: [facility], Intensive Outpatient Program [address] [address] IOP (INTENSIVE OUTPATIENT PROGRAM) PATIENT DISCHARGE INSTRUCTIONS C O N F I D E N T I A L I N F O R M A T I O N The following is a summary of your discharge instructions. Some of the information contained on this summary may be confidential. This information should be kept in your records and should be shared with your regular doctor. --- Patient Name: Oren Tobin Allergies as of 11/28/2023 ALLERGIES No Known Allergies This is a current medication list per your reported information. Current Outpatient Medications Medication Sig buPROPion XL (WELLBUTRIN XL) 300 mg 24 hr tablet 300 mg once daily. escitalopram oxalate (LEXAPRO) 10 mg tablet 10 mg. Phentermine HCl 37.5 mg tablet Take 1 tablet by mouth once daily for 90 days. BMI 30.74 medroxyPROGESTERone (DEPO-PROVERA) 150 mg/mL Inject 1 mL intramuscularly every 12 weeks. Current Facility-Administered Medications Medication Dose Route Frequency medroxyPROGESTERone 150 mg injection (DEPO-PROVERA) 150 mg INTRAMUSCULAR every 12 weeks If you have any questions or concerns about your medication(s) please contact the prescribing physician. Your follow-up appointments include: Psychiatry: continue MH treatment and medication compliance for MH concerns Medical/Primary Care Physician: continue to attend medical appointments, self care activities Recommended Community Resources: 12 Step Program Aftercare at [facility] starting Sunday12/05/23. [facility] weekly 6-8 pm on Wednesdays for 8 weeks for ongoing stabilization, support And relapse prevention I have received a copy of the above instructions and understand them. Given in group and via email this day SIGNED: Date: Time:_ Patient/Significant Other Signed: Date: Time: Staff Signature/Title Electronically Signed: KISHORE Mcbride [facility] 11-29-2023 Note HNO ID: [id number] Author: MATILDA BARAKAT LSW Service: DAILY INTENSIVE OP Author Type: Therapist Type: Progress Notes Filed: 11/29/2023 21:34 Note Text: Summary: weekly team review note MULTIDISCIPLINARY CARE PLAN PLAN IMPLEMENTATION DATE: 11/28/2023 REASON(S) FOR ICP: Substance use disorders COMMON COMPLAINTS AND PRIOR EVALUATIONS: 1. Problematic use of mood altering chemicals resulting in recurring consequences ICP COMMITTEE RECOMMENDATIONS: 1. Continue IOP services 2. Recommend aftercare following successful completion of IOP for ongoing relapse prevention 3. Continue to attend medical appointments with the unit physician 4. Continue to assess for the need for increased [facility] SUPPORT PLAN: 1. AA, NA, BEULAH This consensus plan was developed by the group members of the Individual Care Plan committee which met in person on 11/28/2023. Attending Dr. Curran Nurse practitioner aidan katz Physicians field research assistant marifer mckenna Nurse deanna moran Clinical delivery room supervisor sanjay forbes Counselor [facility] DOCUMENTED BY: KISHORE Mcbride PATIENT NAME: Oren Tobin DATE: November 28, 2023 TIME: 3:32 PM [facility] 11-29-2023 Note HNO ID: [id number] Author: MATILDA BARAKAT LSW Service: DAILY INTENSIVE OP Author Type: Therapist Type: Progress Notes Filed: 11/29/2023 21:35 Note Text: Summary: closing summary IOP and SAFE T form [facility] CLOSING SUMMARY Opening/Admit date: 10/23/23 Closing/Termination date: 11/29/23 Date of last contact: 11/29/23 Presenting complaint: crisis for treatment was a positive UDS at her place of employment. Required to complete treatment to maintain, return to work duties Progress toward Individual Service Plan (ISP) goals: goals partially met. Progress is developing. Will continue IOP goals in aftercare Unresolved problems: client will be transitioning back to work beginning the week of 12/03/23. Lacks sponsor, home group and relapse prevention plan Final diagnosis: Multiaxial Assessment: AXIS I: Substance Related Disorders Alcohol Dependence AXIS II: No diagnosis AXIS III: Active Problems: * No active hospital problems. * AXIS IV: AXIS V: Discharge instructions given to the client in group and via email this day Level of care criteria No signs/symptoms of acute withdrawal. Improving engaged in psychiatry and reports medication compliance. No safety issues. No current medical complaints. Low treatment resistance. Compliant. Moderate relapse risk. Lacks sober support and sponsor. Home is supportive of recovery. Basic needs are met. Reason for closing/termination: Transitioning to alternative level of care, Outpatient Referrals: [facility], 12 step support Evening aftercare at [facility]. [facility] evening group. Start date of Sunday12/15/23 weekly from 6-8 pm for 8 weeks for ongoing stabilization and support SAFE-T Protocol with C-SSRS - Recent Step 1: Identify Risk Factors C-SSRS Suicidal Ideation Severity Month Wish to be Have you wished you were or wished you could go to sleep and not wake up? no Current suicidal thoughts Have you actually had any thoughts of killing yourself? no Suicidal thoughts w/ Method (w/no specific Plan or Intent or act) Have you been thinking about how you might do this? no Suicidal Intent without Specific Plan Have you had these thoughts and had some intention of acting on them? Intent with Plan Have you started to work out or worked out the details of how to kill yourself? Do you intend to carry out this plan? C-SSRS Suicidal Behavior: "Have you ever done anything, started to do anything, or prepared to do anything to end your life?? Examples: Collected pills, obtained a gun, gave away valuables, wrote a will or suicide note, took out pills but didn?t swallow any, held a gun but changed your mind or it was grabbed from your hand, went to the roof but didn?t jump; or actually took pills, tried to shoot yourself, cut yourself, tried to hang yourself, etc. If ?YES? Was it within the past 3 months? Lifetime Past 3 Months Current and Past Psychiatric Dx: Mood Disorder and Alcohol/substance abuse disorders Presenting Symptoms: Anxiety and/or panic Family History: Denies hx of self harm. Positive family history for alcoholism Precipitants/Stressors: Substance intoxication or withdrawal Change in treatment: Transitioning to aftercare Access to lethal methods: Asked SPECIFICALLY about presence or absence of a firearm in the home or ease of accessing Step 2: Identify Protective Factors (Protective factors may not counteract significant acute suicide risk factors) Internal: Ability to cope with stress, Frustration tolerance, Spiritism beliefs, Fear of or the actual act of killing self, and Identifies reasons for living External: Cultural, spiritual and/or moral attitudes against suicide, Responsibility to children, Beloved pets, Supportive social network of family or friends, Positive therapeutic relationships, and Engaged in work or school Step 3: Specific questioning about Thoughts, Plans, and Suicidal Intent - (see Step 1 for Ideation Severity and Behavior) If semi-structured interview is preferred to complete this section, clinicians may opt to complete C-SSRS Lifetime/Recent for comprehensive behavior/lethality assessment. C-SSRS Suicidal Ideation Intensity (with respect to the most severe ideation 1-5 identified above) Month Frequency How many times have you had these thoughts? (1) Less than once a week (2) Once a week (3) 2-5 times in week (4) Daily or almost daily (5) Many times each day 0 Duration When you have the thoughts how long do they last? (1) Fleeting - few seconds or minutes (2) Less than 1 hour/some of the time (3) 1-4 hours/a lot of time (4) 4-8 hours/most of day (5) More than 8 hours/persistent or continuous 0 Controllability Could/can you stop thinking about killing yoursel (more content not included)... [facility] 11-20-2023 Note HNO ID: [id number] Author: LUCY KATZ APRN.LIONEL Service: ? Author Type: Nurse Practitioner Type: Progress Notes Filed: 11/20/2023 10:49 Note Text: Summary: ADRC: Aftercare Orders [facility] FOLLOW UP VIRTUAL VISIT PROGRESS NOTE PATIENT: Oren Tobin MRD: [id number] DATE: November 20, 2023 IDENTIFYING INFORMATION: Patient was first identified by full name AND date of . This is a virtual visit. It required patient/provider interaction for medical decision-making as documented below. This visit was performed via [employer] video.AND/or phone conversation, in the event that there are technical difficulties or patient does not have access to tele-health technology. I have communicated my name and active licensure. The patient's identity and physical location were verified at the time of this visit. Either the patient or their legal veterans contact representative has been informed of the risks and benefits of -- and alternatives to -- treatment through a remote evaluation and consents to proceed with the evaluation remotely. CHIEF COMPLAINT: Presents today for a follow up for chemical dependency. SUBJECTIVE: Patient is available on video platform at time of visit. States she is doing well Cannot remember when her last use of alcohol was, but states "it was a long time". States she had cravings the firs 1-2 weeks. Denies any now. Is doing online meetings through [employer]. States mood is good. States sarcastically you know the mental health medications are cancelled out by the alcohol!". States back on phentermine for weight loss. States anxiety and coping skills improved. Her daughter was in an auto accident and she handled much better thanexpected States she likes Intensive Outpatient and is learning a lot'. Just waiting to get back to work. Denies SI/HI/AVH. Screening Tools: Generalized Anxiety Disorder Scale (CHASIDY-7) CHASIDY - 7 SCORES 10/16/2023 10/19/2023 11/19/2023 CHASIDY-7 Score 2 2 0 (0-4) minimal anxiety, (5-9) mild anxiety, (10-14) moderate anxiety, (15-21) severe anxiety Patient Health Questionnaire (PHQ-9) PHQ-9 10/16/2023 10/19/2023 11/19/2023 Score 3 2 0 (0-4) minimal depression, (5-9) mild depression, (10-14) moderate depression, (15-19) moderately severe depression, (20-27) severe depression OBJECTIVE: Vital Signs: Unable to do due to current Covid 19 precautions/policies. Review of Systems: Review of Systems Constitutional: Negative for chills, fatigue and fever. HENT: Negative for congestion and sore throat. Respiratory: Negative for cough, chest tightness and shortness of breath. Cardiovascular: Negative for chest pain. Musculoskeletal: Negative. Neurological: Negative for dizziness and headaches. All other systems reviewed and are negative. Medication review: done. Side effects: denies Medical concerns/ changes: denies PHYSICAL EXAMINATION: Video Examination: if completed/performed via video-enabled technology Voice is clear without noted cough throughout interview. No audible wheezing. Speaking in full sentences. MENTAL STATUS EXAMINATION: (may be limited due to virtual platform) Mental Status Exam General/Sensorium: Alert AND interactive Orientation: AAOx3 Appearance: Appropriately groomed and casually dressed Eye contact: Appropriate Demeanor: Appropriately interactive and cooperative Motor activity: Calm Speech: Articulate with appropriate rhythm and volume Mood: Euthymic Affect: Congruent with mood Thought process: Within normal limits and linear, logical, and goal-directed Associations: Normal Thought content: Appropriate and future goals or plans Suicidal ideation: SI: no Plan: no Intent: no Homicidal ideation: HI: no Plan: no Intent: no Abnormal/psychotic thoughts: Absent Perceptions: She does not appear internally stimulated and denies hallucinations. Intelligence: Average Attention: Intact Memory: Short-term: Intact Long-term: Intact Language: Intact Fund of knowledge: Appropriate Insight: Good Judgment: Good Gait: Not observed Station: Sitting Suicide Risk Assessment: Patient's suicide risk has been evaluated. He is currently judged to be at low suicide risk, after weighing his risk factors (none) against his protective factors (no current SI, no current suicide plan, no previous SA, no previous SI, no recent initiation or increase in substance ue, good insight about condition, good support system, no isolation at home, presence of dependents, presence of meaningful daily activities, presence of employment, belief that treatment can help with negative feelings, and medication compliance in the past) and also reviewing his age (highest risk > 65 yrs), gender (higher risk in males), marital status, ethn (more content not included)... [facility] 11-15-2023 Note HNO ID: [id number] Author: MATILDA BARAKAT LSW Service: DAILY INTENSIVE OP Author Type: Therapist Type: Progress Notes Filed: 11/15/2023 21:19 Note Text: Summary: full 30 day team review note Treatment Plan Review Outline I. Program Name/Level of Care: Evening IOP II. Client's Legal Name: Oren Tobin III. Date of Review: 11/14/2023 IV: Date of Admission: October 23, 2023 V. Current Length of Stay: 4 weeks . Identifying Information: Oren Tobin is a 42 year old female diagnosed with alcohol use disorder use disorder. The client is scheduled to attend group sessions: three days per week VII. Observable Symptomatology and Clinical Response: Significant Comorbid Psychiatric Symptomatology: Depressed mood and Generalized Anxiety Acceptance of Disease Concept of Addiction: Preparation--Client is making a commitment to take action to change behavior and is developing a plan for change. 12-Step Meeting Attendance:Is not meeting this goal at this point. Progress is developing. 12-Step Sponsor Relationship: Is not meeting this goal at this point. Progress is developing. Homegroup Establishment: Is not meeting this goal at this point. Progress is developing. Reducing Exposure to Relapse Triggers or Using Environments:Client has taken definitive steps to reasonably eliminate exposure to all relapse triggers or using environments. Sober Coping Skills Used by Client Since Last Review: prayer, exercise, reframing, and social interaction VIII. Specific Master Treatment Plan Problems/Goal Status Report: Substance Use Disorder: A.Patient will maintain sobriety as evidenced by urine drug screens reviewed by the LIP and determined to indicate sustained abstinence from drugs of abuse. B.Patient will learn the disease concept by completing the step one book in a manner that demonstrates to treatment team that the principles of powerlessness and unmanageability are integrated into the patient's understanding of the disease model. C.Patient will attend two 12-step meetings per week, get a 12-step sponsor, attend the 12-step workshop and report these activities to the group weekly. Completion of this goal will be demonstrated by obtaining signature documentation of meeting attendance and direct communication between the designated sponsor and the treatment team. D.Patient will describe to the group at least two events occurring between the start and end dates of the program in which effective use of at least one new sober coping skill reduced the risk of relapse. IX. Additional Treatment Concerns and/or Client Needs: Family Input, Support and Education: Client has not designated a family collateral to be contacted. Stressors: work problems, money problems, family problems, and substance using friends The licensed independent behavioral health provider has discussed psychopharmacologic treatment with this client. X. Recommendations AND Medical Necessity of Continued Treatment: This client continues to require support, structure and monitoring to maintain current progress toward therapeutic goals and make further progress. Addiction relapse with resultant inpatient hospitalization or transition to partial hospitalization would likely be necessary if the current level of care was not continued. There is no less intensive level of care that would be sufficient to provide the medically necessary treatment that the client requires. The client's estimated length of stay is five weeks in primary IOP, followed by seven weeks of weekly aftercare. SIGNATURE: KISHORE Mcbride PATIENT NAME: Oren Tobin DATE: November 14, 2023 TIME: 4:22 PM PAGER/CONTACT #: [facility] 10-23-2023 Note HNO ID: [id number] Author: LUCY KATZ APRN.CNP Service: ? Author Type: Nurse Practitioner Type: Progress Notes Filed: 10/23/2023 12:27 Note Text: Summary: ADRC: Medical Assessment AND IOP Orders [facility] INITIAL OFFICE VISIT PATIENT: Oren Tobin MRD: [id number] DATE: October 23, 2023 This is an in office visit. It requires patient/provider interaction for medical decision-making as documented below. The patient is first identified by full name and date of . IDENTIFYING INFORMATION: Oren is a 42 year old female with a remote history of cocaine abuse reportedly 15 years ago. 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 She was pulled for a random URINE DRUG SCREEN on 10/03/23 and was taken off work on 10/11/23 for testing positive for a stimulant. She has been on phentermine for weight loss for 5 weeks. Denies any cocaine use for 15 years. States her alcohol use was higher last year because of her anxiety, and was drinking every night. She started seeing a psychiatrist and got her medications adjusted and was doing well until recently and her anxiety is higher and has been drinking more alcohol. From Initial Assessment: PRECIPITATING PROBLEM(S): I got an email from my nurse valuation manager that I was selected to submit a UDS on 10/03/23. I had to go up to Occupational Health to submit. I was asked if I was on medication and I told her yes; weight loss meds. I am on phentermine 37.5mg-1 time a day. Its a new script and I have been on it for 3 weeks this Sunday10/19/2023. It is prescribed by my family doctor Dr. Tg JASSO signed. I am also prescribed generic lexapro 10mg, Wellbutrin XL 300mg and Im also on hydrazine 10mg as needed for anxiety which is prescribed by my psychiatrist. Dr. Rivera signed. I was told I tested positive for cocaine and then I was told to go home and call [facility]. I got in the very next day. I talked to Kateryna and signed all the paperwork last Sun10/12/2023 and made my appointment for [facility]. I don't use cocaine anymore. I used Meth and Cocaine 15 years ago and I think it was a way to medicate myself. I decided to quit and I did. I haven't done any of it for 15 years. I am now prescribed the appropriate medications to manage my MH needs Gayla for 10 years, I have 2 children, 1 is 21- a daughter and a 11 year old son. 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 I have been floating in family care, express care and internal care. I have been a [employer] for 22 years. I go to work, I work my 12 hours shifts, [facility] and I come home. I live in [place] and we have been there for 2 years. Years ago I was diagnosed with bipolar and depression by family doctors. That was a wrong diagnosis; non eo f the meds prescribed even helped. In this last year I went to a psychiatrist and he said Im not bipolar and he has straightened out my meds and now I feel stable. The UDS from Kateryna [facility] shows a diluted specimen test and a result of 1084 ng/ml of cocaine metabolite. Received after the assessment was completed with the client. Current withdrawal symptoms: none HISTORY OF PRESENT ILLNESS: ALCOHOL: How old were you at your first use of alcohol: 17 Progression of Use: I started in high school I would go out on weekends or after school. I would drink maybe 3-4 drinks. In my 20s I stopped drinking for a while I had an . After about 1 I started to drink on the weekends and I would get drunk. It depended on who I was with and were I was at. Maybe 7-8 drinks in my 30's. When I was about 40 I started to drink daily in the evenings before I was medicated. She referred me to the psychiatrist and I was placed on meds and I have decreased my use of alcohol over the past 1.5 years. Now I drink occasionally on the weekends maybe 3-4 drinks, 3 - 4 times a month. Weekends only Peak of Use: In my 30's Any Current Use: Yes: 10/16/2023- 4-5 kamran trivedi Substance Misuse Reported: Yes Use Disorder Criteria-- eleven criteria Over the last twelve months: Substance is often taken in larger amounts or over a longer period than was intended?Yes There is a persistent desire or unsuccessful efforts to cut down or control substance use? No A great deal of time is spent in activities necessary to obtain the substance, use the substance, or recover from its effects? No Craving or a strong desire or urge to use the substance is present? Yes Recurrent substance use has resulted in a fail (more content not included)... [facility] 10-17-2023 Note HNO ID: [id number] Author: LUCY KATZ APRN.IT HELP DESK TECHNICIAN Service: ? Author Type: Nurse Practitioner Type: Progress Notes Filed: 10/17/2023 11:41 Note Text: Patient here for [facility] visit with assessment counselor and initial urine collected for all substance screenings. [facility] 08-13-2023 Instructions Mariluz Rhodes APRN.CNM - 08/13/2023 10:55 AM EST [facility] Physical Therapy [phone] [place] [address] At Home Services: [facility]: Isidra [phone] www.Drink Up Downtow[email or web address].LearnUpon Online: [email or web address]/ab-rehab [email or web address]-[email or web address] crg-dbxa-gkiiasdij-plan-2 Perifit or Eloina device Vasectomy is a simple, safe operation that involves interrupting the tubes call the vas deferens that transport sperm. Vasectomy is a one-time procedure that provides permanent sterilization. The procedure is performed in the office under a local anesthetic. Most men are recovered within a few days of the procedure. To schedule a consultation call [phone] or to learn more about vasectomy, visit [email or web address] What You Need to Know About Sterilization by Laparoscopy What is sterilization by laparoscopy? Sterilization by laparoscopy is a common procedure used to perform tubal ligation in women. Tubal ligation is a method of sterilization that involves obstruction of the fallopian tubes. The fallopian tubes are on either side of the uterus and extend toward the ovaries. They receive eggs from the ovaries and transport them to the uterus. Once the fallopian tubes are closed, the man's sperm can no longer reach the egg. Laparoscopy enables the physician to complete tubal ligation by making a small incision near the navel. This smaller incision reduces recovery time after surgery and the risk of complications. In most cases, the woman can leave the surgery facility within 4 hours after laparoscopy. Am I ready for sterilization? A woman should carefully weigh her decision to undergo sterilization by laparoscopy. Though this procedure has been successfully reversed in some women, in almost all cases it causes a permanent loss of fertility. Women who are unsure if they still want children should choose a less permanent form of contraception, such as control pills, an intrauterine device (IUD), or a barrier method (such as a diaphragm). Discuss these alternatives with your physician. Your partner may also consider having a vasectomy, a method of male sterilization that involves severing and tying the vas deferens, a tube that transports sperm. Why do women choose sterilization by laparoscopy? For women who no longer want children, sterilization by laparoscopy provides a safe and convenient form of contraception. Once completed, no further steps are needed to prevent . Tubal ligation also does not change a woman's menstrual cycle or cause menopause. However, laparoscopy may not be suitable for some women. In these cases, tubal ligation may be performed by laparotomy, a more extensive surgery that requires a larger abdominal incision and a day or two of recovery in the hospital. How is the surgery performed? You will be given a general anesthetic to relax your muscles and prevent pain during surgery. An intravenous line (I.V.) will be inserted into a vein in your hand or arm. Next, a device will be gently inserted into the vagina to move the uterus. A small incision is then made near the navel. A laparoscope, a thin viewing tube about the width of a pencil, is passed through this incision and the abdomen is inflated to make the organs easier to view. A special device for grasping the fallopian tubes is inserted through a second, small incision made at the pubic hairline. The fallopian tubes are sealed in one of two ways: with an electric current that makes the tube clot (electrocoagulation) or with a band or clip that is placed over the tubes. Your physician may also cut the fallopian tubes. After the fallopian tubes have been sealed, the laparoscope and grasping device are removed and a small bandage is applied over the incisions. Recovering from the surgery After surgery, patients stay in a recovery room and are observed for any possible complications. Patients are discharged after they receive instructions for home recovery. Patients are asked to see their physicians for a follow-up appointment within 2 to 8 weeks. You will be unable to drive for 24 hours after surgery. You must have someone pick you up and stay with you for 24 hours after surgery. Preparing for laparoscopy Before your laparoscopy: DO NOT eat, drink (including water) or smoke after midnight the evening before your surgery. Wear low-heeled shoes the day of surgery. You may be drowsy from the anesthesia and unsteady on your feet. Do not wear jewelry. (Wedding rings may be worn.) Wear loose-fitting clothing. You will have some abdominal tenderness and cramping after surgery. Bring a sanitary pad. You may have some vaginal bleeding after surgery. Remove nail citizen of [place] prior to surgery. Recovering at home Don't drink alcohol or drive for at least 24 hours after surgery. You can bathe anytime after surgery. You may remove the bandage the morning after the surgery. Steri-strips, which resemble tape, can be removed 2 to 3 days after surgery. Patients can return to work three days after surgery. (If you need a physician's letter excusing you from work, please request one before the day of surgery.) Discomforts Your abdomen may be swollen for several days after the surgery. Tylenol may be taken to relieve pain. You may have a sore throat for a few days. Try using a throat lozenge. You may have mild nausea. Try eating a light evening meal the day of surgery. Tea, soup, toast, gelatin, or crackers may help relieve nausea. Gas in the abdomen may cause discomfort in the neck, shoulders, and chest for 24 to 72 hours after surgery. Try taking a warm shower, using a heating pad, or walking. Vaginal bleeding and menstruation Vaginal bleeding up to 1 month after surgery is normal. Many women do not have their next normal menstrual cycle for 4 to 6 weeks after surgery. When your normal cycle returns, you may notice heavier bleeding and more discomfort than usual for the first two to three cycles. Vaginal bleeding and menstruation Vaginal bleeding up to 1 month after surgery is normal. Many women do not have their next normal menstrual cycle for 4 to 6 weeks after surgery. When your normal cycle returns, you may notice heavier bleeding and more discomfort than usual for the first two to three cycles. Sexual activity You can resume sexual activity one week after surgery. When to contact your physician Contact your physician immediately if you experience any of the following: Persistent nausea and vomiting for more than 24 hours Temperature over 100 degrees Fahrenheit for more than 24 hours Redness, swelling, drainage or bleeding around the incision After the first day of surgery: Heavy bleeding with clots or soaking a sanitary pad within 2 hours Copyright 1985-9925 [facility]. All rights reserved This information is provided by the [facility] and is not intended to replace the medical advice of your doctor or health care provider. Please consult your health care provider for advice about a specific medical condition. For additional health information, please contact the [facility] for [employer] [facility] Information at the [facility] or toll-free extension [phone]. If you prefer, you may visit [email or web address] or [email or web address]. This document was last reviewed on: 2007 index#[id number] documented in this encounter [facility] 08-13-2023 History of Presen t illness Narrative Oren is a 42 year old No obstetric history on file. who presents for an annual gynecologic exam without complaints. Menses: No bleeding Contraception: Depo Provera, Vitamin D, no calcium HPV vaccine: Yes Last Pap: unsure when last one was - normal HPV: negative History of abnormal pap: Yes, did have LEEP approx. 10 years ago. 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 No pertinent past medical history.History reviewed. No pertinent surgical history. FAMILY HISTORY Problem Relation Age of Onset Colon Cancer Maternal Grandmother had it twice SOCIAL HISTORY Social History Tobacco Use Smoking status: Never Smokeless tobacco: Never Substance Use Topics Alcohol use: Yes Comment: occasional Drug use: Never REVIEW OF SYSTEMS Abdomen: No abdominal pain, nausea, vomiting, diarrhea, or constipation. No bloating, early satiety, indigestion, or increased flatulence. Bladder: No dysuria, gross hematuria, urinary frequency, urinary urgency, or incontinence. Breast: No breast lumps, nipple d/c, overlying skin changes, redness or skin retraction. Allergies and current medication updated:Yes EXAM: BP 116/72 Ht 5' 0" (1.52m) Wt 156 lb 3.2 oz (70.9kg) BMI 30.51 kg/(m^2). GENERAL: pleasant, female in no apparent distress HEENT: Normocephalic, atraumatic, mucus membranes moist, and no lesions NECK: Supple, full range of motion, no adenopathy, and thyroid normal DERMATOLOGY: Normal, without lesions, non-icteric, and non-hirsute BREAST: soft, non-tender, symmetric, no dominant mass, normal nipple-areolar complex, no lymphadenopathy, and no nipple discharge CHEST: Clear to auscultation and Normal inspiratory effort ABDOMEN: soft, non-tender, and no masses PELVIC: external genitalia normal, normal Bartholin's glands, urethra, Shively's glands, no vulvar lesions, no cervical lesions, good vaginal support, physiologic discharge present, normal appearing perineal body and perianal region BIMANUAL: uterus normal size, shape and consistency, no adnexal masses, and non-tender RECTOVAGINAL: deferred. NEURO: alert and oriented x3,exam grossly non-focal EXTREMITIES: normal ASSESSMENT/PLAN: ASSESSMENT/PLAN: 1. Encounter for gynecological examination (general) (routine) with abnormal findings - ICD9: V72.31, ICD10: Z01.411 (primary diagnosis) - Completed pelvic and breast exam - Encouraged monthly BSE - Follow up for annual exam in one year. - PAP TEST - HPV W/GENOTYPE THIN PREP 2. Screening for cervical cancer - ICD9: V76.2, ICD10: Z12.4 - Completed pelvic and breast exam - Encouraged monthly BSE - Follow up for annual exam in one year. - PAP TEST - HPV W/GENOTYPE THIN PREP 3. Encounter for screening for human papillomavirus (HPV) - ICD9: V73.81, ICD10: Z11.51 - PAP TEST - HPV W/GENOTYPE THIN PREP 4. Encounter for screening mammogram for breast cancer - ICD9: V76.12, ICD10: Z12.31 - Completed pelvic and breast exam - Encouraged monthly BSE - Follow up for annual exam in one year. - YUDELKA SCREENING W BENJAMÍN 5. Dense breast tissue - ICD9: 793.82, ICD10: R92.30 - YUDELKA SCREENING W BENJAMÍN 1) Health maintenance: Pap done with HPV. Mammogram ordered. Nutrition, exercise and routine health maintenance exams reviewed. Calcium/Vitamin D supplementation information provided. Lipids/glucose: followed by PCP Vitamin D: followed by PCP 2) Contraception: Depo Provera. Contraceptive options reviewed and information provided. Reviewed importance of calcium, vitamin D and weight bearing exercise. Discussed bone loss and consideration of changing in next few years. 3) STD screening: Declined STD check. 4) Follow up one year or sooner as needed Mariluz Rhodes APRN.CNM documented in this encounter [facility] Evaluation note Diagnosis Encounter for gynecological examination (general) (routine) with abnormal findings- Primary Screening for cervical cancer Screening for malignant neoplasm of the cervix Encounter for screening for human papillomavirus (HPV) Special screening examination for human papillomavirus (HPV) Encounter for screening mammogram for breast cancer Dense breast tissue [facility] encounter [facility] (narrative)* Diagnostic Procedure Only (Routine) - Pending Review Specialty Diagnoses / Procedures Referred By Nat moreno Referred To Contact [facility] Diagnoses Encounter for screening mammogram for breast cancer Dense breast tissue Procedures YUDELKA SCREENING W BENJAMÍN SCREENING DIGITAL BREAST TOMOSYNTHESIS BI SCREENING MAMMOGRAPHY BI 2-VIEW BREAST INC CAD Mariluz Rhodes APRN.CNM [address] [place] [address] [facility] [address] [place] [address] Referral ID Status Reason Start Date Expiration Date Visits Requested Visits Authorized [id number] Pending Review Auto-Generat ed Referral 3 09/11/2024 1 1 [facility] Summary Purpose Family History No Family History Records FoundNo Family History Records FoundNo Family History Records FoundNo Family History Records FoundNo Family History Records Found Advance Directives No Advanced Directives Records FoundNo Advanced Directives Records FoundNo Advanced Directives Records FoundNo Advanced Directives Records FoundNo Advanced Directives Records Found Additional Source Comments INFORMATION SOURCE (unrecogn ized section and content) DATE CREATED AUTHOR 05/04/2020 [facility] DATE CREATED AUTHOR AUTHOR'S ORGANIZ ATION 08/05/2020 [facility] DATE CREATED AUTHOR AUTHOR'S ORGANIZ ATION 04/05/2024 [facility] DATE CREATED AUTHOR AUTHOR'S ORGANIZ ATION 05/28/2025 [facility] DATE CREATED AUTHOR AUTHOR'S ORGANIZ ATION 06/24/2025 [facility] Source Comments (unrecognize d section and content) In the event this informatio n is protected by the Federal Confidentiality of Alcohol and Drug Abuse Patient Records regulations: The Federal rules restrict any use of the information to criminally investigate or prosecute any alcohol or drug abuse patient.[facility] Reason for Visit (unrecogniz ed section and content) Reason Comments Yearly Exam Care Teams (unrecognized sec tion and content) Wildlife Enforcement Major Relationship Specialty Start Date End Date Cristi Escobar (Hist) [facility] RADIOLOGIST [facility] [address] [place] [address] PCP - General 01/01/04 FOR RECORDS PERTAINING TO PATIENTS WHO ARE OR HAVE BEEN ENROLLED IN A CHEMICAL DEPENDENCY/SUBSTANCEABUSE PROGRAM, SOME INFORMATION MAY BE OMITTED. This clinical summary was aggregated from multiple sources. Caution should be exercised in using it in the provision of clinical care. This summary normalizes information from multiple sources, and as a consequence, information in this document may materially change the coding, format and clinical context of patient data. In addition, data may be omitted in some cases. CLINICAL DECISIONS SHOULD BE BASED ON THE PRIMARY CLINICAL RECORDS. [employer] and [employer]. provides no warranty or guarantee of the accuracy or completeness of information in this document.
[2025-08-05 17:41] LABS: Hematocrit 46.3 % (37-47); Hemoglobin 15.5 g/dL (12.0-15.0); Immature Granulocytes Count 0.040 X10^3/uL (0.0-0.0); Mean Corp Hgb Conc 33.5 g/dL (32-36); Mean Corpuscular Volume 91.0 fL (81-99); Mean Platelet Vol. 9.9 fl (6.2-12.0); NRBC Flagged by Analyzer 0 % (0-5); Platelet Count 395 K/mm3 (150-450); RBC Distribution Width CV 12.2 % (11.6-14.6); RBC Distribution Width SD 40.5 fl (35.1-43.9); Red Blood Count 5.09 M/mm3 (4.2-5.4); White Blood Count 10.3 K/mm3 (4.4-11.0)
[2025-08-05 18:36] LABS: Free T3 3.3 pg/mL (2.18-3.98); Vitamin D,25 Hydroxy 16.3 ng/mL (30-100)
[2025-08-07 04:07] LABS: PROGESTERONE 4.5 ng/mL (.)
== END | disposition home or self-care (01) ==
LOC: MTLAB 14:06
PROVIDERS: PCP Internal Medicine; Referring Provider Specialist; Visit Provider Specialist
DX: N93.9 Abnormal uterine and vaginal bleeding, unspecified (principal); E55.9 Vitamin D deficiency, unspecified
CPT/HCPCS: 36415; 82306; 82627; 82670; 84144; 84403; 84439; 84443; 84481; 85025; 82626